=== PATIENT | female | born 1990 | race Caucasian/White ===

== ENCOUNTER 2023-04-25 11:12 | Outpatient (REF) | payer OTHER, SELFPAY ==
[2023-04-25 12:02] LABS: SARS-CoV-2 Ag POSITIVE (NEGATIVE)
== END 2023-04-25 11:13 | disposition home or self-care (01) ==
LOC: LAB 11:12
PROVIDERS: PCP Family Medicine; Visit Provider Family Medicine
DX: J06.9 Acute upper respiratory infection, unspecified (principal)
CPT/HCPCS: 87811

== ENCOUNTER 2024-06-03 15:11 | Outpatient (RCR) | payer OTHER, SELFPAY | END 2024-06-04 10:26 | disposition home or self-care (01) | LOC: PT 15:11 | PROVIDERS: PCP Family Medicine; Visit Provider Nurse Practitioner Family | DX: M54.50 Low back pain, unspecified (principal); G89.29 Other chronic pain; R20.2 Paresthesia of skin; M62.81 Muscle weakness (generalized) | CPT/HCPCS: 97110; 97162 ==

== ENCOUNTER 2024-07-08 14:29 | Outpatient (RCR) | payer OTHER, SELFPAY | END 2024-09-18 07:00 | disposition home or self-care (01) | LOC: PT 14:29 | PROVIDERS: PCP Family Medicine; Visit Provider Nurse Practitioner Family | DX: M62.81 Muscle weakness (generalized) (principal); R20.2 Paresthesia of skin; M54.50 Low back pain, unspecified; G80.8 Other cerebral palsy | CPT/HCPCS: 97110; 97112; 97140; 97161 ==

== ENCOUNTER 2025-01-27 14:41 | Outpatient (OUT) | payer OTHER, SELFPAY ==
--- OUTSIDE RECORDS SUMMARY | 2025-01-27 14:47 | XMS_ITS | CCD ---
Author Organization [facility] Care Team Providers Care Metal Filer Name Role Phone DO Janneth Ramirez Primary Care Provider MD Sonido Eaton Attending Provider DO Janneth Ramirez Primary Care Provider [phone] MD Sonido Eaton Attending Provider WILL Gregory Emergency Provider DO Janneth Ramirez Primary Care Provider [phone] DO Carolyn Dale Attending Provider DO Janneth Ramirez Primary Care Provider MD Billy Eaton Attending Provider ROMAN Miles Emergency Provider [phone] DO Janneth Ramirez Primary Care Provider [phone] MD Billy Eaton Attending Provider MD Louie Nevarez Emergency Provider Janneth Ramirez DO Primary Care Provider [phone] Zhao Juárez DO Attending Provider Billy Eaton MD Attending Provider Billy Eaton MD Attending Provider Janneth Ramirez DO Primary Care Provider Billy Eaton MD Attending Provider [phone] Ginger PIPE BLANKS CUT OFF SAW OPERATORRichie Emergency Provider Livia RAMIREZ Primary Care Physician Janneth Ramirez DO Primary Care Provider Billy Eaton MD Attending Provider Cricket PIPE BLANKS CUT OFF SAW OPERATOR-MACHINE WEDGER-C, Elise Burnham Attending Provider Ginger PIPE BLANKS CUT OFF SAW OPERATOR, Richie Emergency Provider Earlene Verduzco Attending Provider Unavailable Janneth Ramirez DO Primary Care Provider Cricket PIPE BLANKS CUT OFF SAW OPERATOR-MACHINE WEDGER-C, Elise Burnham Attending Provider Billy Eaton MD Attending Provider Theo Cerna MD Attending Provider Billy Eaton Admitting Unavailab Billy Luis Attending Unavailab Janneth Daniel Primary Care Unavailable Itzkowijenny, Zhao Admitting Unavailable Itromán, Zhao Attending Unavailable Janneth Ramirez Primary Care Unavailable Itzkokarleetz, Zhao Admitting Unavailable ItZaire carltondric Attending Unavailable Janneth Ramirez Primary Care Unavailable Talha Milesothy Admitting Unavailable Talha Milesothy Attending Unavailable Janneth Ramirez Primary Care Unavailable Louie Nevarez Admitting Unavailable Louie Nevarez Attending Unavailable Janneth Ramirez Primary Care Unavailable Elise Delatorre E Admitting Unavailable Elise Delatorre E Attending Unavailable Janneth Ramirez Primary Care Unavailable Itzkokarleetz, Zhao Admitting Unavailable Itromán, Zhao Attending Unavailable Janneth Ramirez Primary Care Unavailable ALBERTO RAMIREZ Primary Care Physician Jacklyn Rivera Attending Unavailable Jacklyn Rivera Attending Unavailable PAU VO Attending Unavailable CRICKET, ELISE D Referring Unavailable PAU VO Attending Unavailable Jacklyn Rivera Attending Unavailable CRICKET ELISE Referring Unavailable PAU VO Attending Unavailable ELISE DELATORRE Attending Unavailable ITZKOWITZ, ZHAO H Attending Unavailable CAROLYN DALE Attending Unavailable ELISE DELATORRE Attending Unavailable ALBERTO RAMIREZ Attending Unavailable JAREN SHAFFER Attending Unavailable ALBERTO RAMIREZ Attending Unavailable ZHAO JUÁREZ Attending Unavailable ALBERTO RAMIREZ Referring Unavailable OTF CARTWRIGHT Attending Unavailable SIENNA DERAS Attending Unavailable JESSENIA PAULA Attending Unavailable ALBERTO RAMIREZ Attending Unavailable MARGARET LEACH Attending Unavailable Allergies Allergy ClassificationReported Allergen(s)Allergy TypeDate of OnsetReaction(s) Facility (15 sources)Sulfamethoxazole; Translations: [sulfamethoxazole]Drug Allergy 47-00-6487SofxhDjbwyivgoWV[facility] (15 sources)Trimethoprim; Translations: [trimethoprim]Drug Qscoudq19-62-5490 [facility] (12 sources)Latex; Translations: [latex]Allergy to guvggvsjt99-92-9822Fovnjus (qualifier value)[facility] (12 sources)Morphine; Translations: [Morphine]Drug Jpifnkv97-05-6210Mjqjhii (qualifier value)[facility] (4 sources)Sulfonamide; Translations: [sulfa drugs]Drug allergyUnknown (qualifier value)[facility] Medications Current Medications MedicationDrug Class(es)DatesSig (Normalized)Sig (Original)[id number] 200 actuat albuterol 0.09 mg/actuat metered dose inhaler (7 sources)beta2-Adrenergic AgonistStart: 53-93-1247woew 1 puff(s) by inhalation every four to six hours as needed for wheezingAlbuterol Sulfate 90 mcg/actuation HFA aerosol inhaler Active 2 PUFF INHALATION EVERY 4-6 HOURS as needed for shortness of breath or wheezing March 19, 2024 1:00am Complies with drug therapyAlbuterol (Eqv-Ventolin HFA) 90 mcg/inh inhalation aerosol (3 sources)Start: 48-22-5180Vecnpqomr (Eqv-Ventolin HFA) 90 mcg/inh inhalation aerosol 2 inh, Refill(s) 0 Start Date: 06/25/24 Status: Ordered Repeat number: 1 baclofen 5 mg oral tablet (10 sources)gamma-Aminobutyric Acid-ergic AgonistStart: 05-82-1873lnylbdaq 5 mg oral tablet 5 mg = 1 tab(s), Refills(s) 0 Start Date: 06/25/24 Status: Ordered Repeat number: 124 hr buPROPion hydrochloride 300 mg extended release oral tablet (9 sources)AminoketoneStart: 21-34-0200dzjw 1 tablet by mouth once daily in the morningBupropion Hcl 300 mg tablet extended release 24 hr Active 300 MG PO Every morning August 31, 2023 12:00am Complies with drug therapyStart: 08-31-2023 Bupropion Hcl Active MG PO August 31, 2023 12:00amBuPROPion (Eqv-Wellbutrin SR) 150 mg/12 hours oral tablet, extended release (3 sources)Start: 68-08-6687DmRTJJhiz (Eqv-Wellbutrin SR) 150 mg/12 hours oral tablet, extended release 150 mg = 1 tab(s), Refills(s) 0 Start Date: 06/25/24 Status: Ordered Repeat number: 1cholecalciferol 0.05 mg oral capsule (9 sources)Vitamin DStart: 25-29-4056qkdw 1 capsule by mouth once daily Cholecalciferol (Vitamin D3) (Vitamin D3) 50 mcg (2,000 unit) capsule Active 50 MCG PO Daily August 31, 2023 12:00am Complies with drug therapy{24 (Ethinyl Estradiol 0.01 MG / norethindrone acetate 1 MG Oral Tablet) / 2 (Ethinyl Estradiol 0.01 MG Oral Tablet) / 2 (Ferrous fumarate 75 MG Oral Tablet) } Pack [Lo Loestrin Fe 28 Day] (15 sources)EstrogenStart: 32-41-6966zetq 1 tablet by mouth once daily, then take 1 tablet by mouth once dailyLo Loestrin Fe oral tablet 1 tab(s), Oral, Daily, TAKE 1 TABLET BY MOUTH DAILY CONTINUOUSLY Start Date: 01/14/25 Status: Ordered Repeat number: 1Start: 23-13-8444ysvi 1 tablet by mouth once daily Norethindrone-E.Estradiol-Iron (Lo Loestrin Fe) 1 mg-10 mcg (24)/10 mcg (2) tablet Active 1 TAB PO Daily April 24, 2021 5:34pmStart: 30-57-1793ehyq 1 tablet by mouth once daily at bedtimeStart: 29-90-9221kfas 1 tablet by mouth once daily at bedtimeNorethindrone-E.Estradiol-Iron (Lo Loestrin Fe) 1 mg-10 mcg (24)/10 mcg (2) tablet Active 1 TAB PO Daily at bedtime April 24, 2021 1:00am Complies with drug therapyStart: 73-97-6513kxnt 1 tablet by mouth once daily at bedtimeNorethindrone-E.Estradiol-Iron (Lo Loestrin Fe) 1 mg-10 mcg (24)/10 mcg (2) tablet Active 1 TAB PO Daily at bedtime April 24, 2021 1:00amStart: 77-76-6055yflf 1 tablet by mouth once daily at bedtime Norethindrone-E.Estradiol-Iron (Lo Loestrin Fe) 1 mg-10 mcg (24)/10 mcg (2) tablet Active 1 TAB PO Daily at bedtime April 24, 2021 12:00amStart: 16-77-2131hyrl 1 tablet by mouth once dailyNorethindrone-E.Estradiol-Iron (Lo Loestrin Fe) 1 mg-10 mcg (24)/10 mcg (2) tablet Active 1 TAB PO Daily April 24, 2021 1:00amfamotidine 40 mg oral tablet (12 sources)Histamine-2 Receptor AntagonistStart: 99-09-0844kvexsaromo 40 mg Tab 40 mg = 1 tab(s), Refills(s) 0 Start Date: 06/25/24 Status: Ordered Repeat numbe r: 1Start: 80-56-1664Myfqembzzc Active MG TABLET August 31, 2023 12:00am hydrOXYzine pamoate 25 mg oral capsule (17 sources)AntihistamineStart: 15-26-8683idmpQNWpgih pamoate 25 mg Cap 25 mg = 1 cap(s), Refills(s) 0 Start Date: 06/25/24 Status: Ordered Repeat number: 1 Start: 11-54-2083qmls 1 capsule by mouth every six hours as needed for anxiety Hydroxyzine Pamoate 50 mg Capsule Active 50 MG PO Q6H as needed for Anxiety 30 15 April 282 1:00am Complies with drug therapyibuprofen 600 mg oral tablet (10 sources)Nonsteroidal Anti-inflammatory DrugStart: 32-24-6325kcvh 1 tablet by mouth four times daily as neededIbuprofen 600 mg tablet Active 600 MG PO Four times daily as needed January 13, 2025 12:00am Complies with drug therapyStart: 08-31-2023 End: 81-48-3808jlxd 1 tablet by mouth three times daily as needed for pain Ibuprofen 800 mg tablet Discontinued 800 MG PO Three times daily as needed for fever or pain 2023 12:00am August 16, 2024 4:26pmlamoTRIgine 150 mg oral tablet (20 sources)Mood Stabilizer, Anti-epileptic AgentStart: 29-81-0752arfyniljfoj 150 mg Tab 150 mg = 1 tab(s), Refills(s) 0 Start Date: 06/25/24 Status: Ordered Repeat number: 1Start: 85-42-9112zorr 1 tablet by mouth once daily at bedtime Lamotrigine 200 mg tablet Active 200 MG PO Daily at bedtime March 19, 2024 1:00am Complies with drug therapyStart: 08-31-2023 End: 15-96-3954ztsk 1 tablet by mouth once dailyLamotrigine 100 mg tablet Discontinued 100 MG PO Daily August 31, 2023 12:00am March 19, 2024 12:54pm Start: 76-05-7674Wnwpcuvjxsa Active MG TABLET August 31, 2023 12:00amStart: 04-28-2021 End: 32-07-9558nzad 1 tablet by mouth once dailyLamotrigine 25 mg Tablet Discontinued 25 MG PO Daily April 28, 2021 1:00am August 31, 2023 12:25pmmelatonin 10 mg oral capsule (3 sources)Start: 83-82-4166jyae 1 capsule by mouth once daily at bedtime melatonin 10 mg oral capsule 10 mg = 1 cap(s), Oral, Once a day (at bedtime), Refills(s) 0 Start Date: 06/25/24 Status: Ordered Repeat number: 124 hr oxybutynin chloride 10 mg extended release oral tablet (7 sources)Cholinergic Muscarinic AntagonistStart: 01-14-2025 End: 84-18-1482swmx 1 tablet by mouth once dailyoxybutynin 10 mg ER Tab 10 mg = 1 tab(s), Oral, Daily, X 30 day(s), # 30 tab(s), Refills(s) 6, Pharmacy: [facility]/pharmacy #[id number], 165, cm, 01/14/25 10:35:00 EDT, Height/Length Dosing, 99.4, kg, 01/14/25 10:35:00 EDT, Weight Dosing Start Date: 01/14/25 Stop Date: 08/12/25 Status: Ordered Quantity: 30.0 Unit: tab(s) Repeat number: 7 Indications: Mixed incontinence;Start: 08-16-2024 End: 85-96-1389vjik 1 tablet by mouth once dailyOxybutynin Chloride 15 mg tablet extended release 24hr Active 15 MG PO Daily August 16, 2024 12:00amComplies with drug therapyprazosin 2 mg oral capsule (20 sources)alpha-Adrenergic BlockerStart: 70-00-9848jbdiclct 2 mg oral capsule 2 mg = 1 cap(s), Refills(s) 0 Start Date: 06/25/24 Status: Ordered Repeatnumber: 1Start: 04-24-2021 End: 68-45-8033ijyl 1 capsule by mouth once dailyPrazosin (Minipress) 1 mg capsule Discontinued 1 MG PO Daily 15 April 28, 2021 9:43am March 19, 2024 12:59pmtraZODone hydrochloride 150 mg oral tablet (20 sources)Serotonin Reuptake InhibitorStart: 62-94-1869lblKNDAYM 150 mg Tab 150 mg = 1 tab(s), Refills(s) 0 Start Date: 06/25/24 Status: Ordered Repeat numb er: 1Start: 15-69-1438svda 3 tablets by mouth once daily at bedtime as needed Trazodone 50 mg tablet Active 150 MG PO Daily at bedtime as needed for Insomnia February 05, 2022 7:37pm Complies with drug therapyStart: 48-31-9154obdy 150 mg by mouth once daily at bedtimeTrazodone Active 150 MG PO Daily at bedtime February 05, 2022 7:37pmStart: 77-02-2314ciai 100 mg by mouth once daily at bedtimeTrazodone Active 100 MG PO Daily at bedtime February 05, 2022 7:37pm Start: 04-28-2021 End: 67-15-0637fsfq 1 tablet by mouth once daily at bedtime as neededTrazodone 50 mg Tablet Discontinued 50 MG PO Daily at bedtime as needed for Insomnia April 28, 2021 1:00am February 05, 2022 7:37pmVital-D (3 sources)Start: 60-69-1795Dqucb-D Oral, Daily, Refill(s) 0 Start Date: 06/25/24 Status: Ordered Repeat number: 1ziprasidone 60 mg oral capsule (20 sources)Atypical AntipsychoticStart: 08-53-0906ufcufcfwqxh 60 mg oral capsule 60 mg = 1 cap(s), Refills(s) 0 Start Date: 06/25/24 Status: Ordered Re peat number: 1Start: 24-02-5267vjdlequeiqu 20 mg Cap 20 mg = 1 cap(s), Refills(s) 0 Start Date: 06/25/24 Status: Ordered Repeat number: 1Start: 90-70-3497skiw 20 mg by mouth twice dailyZiprasidone Hcl Active 20 MG PO Twice daily August 31, 2023 12:00amStart: 78-97-6312Aqpzqdrvjyc Hcl Active MG PO August 31, 2023 12:00amStart: 95-42-0141Miedzzryquc Hcl Active MG PO August 31, 2023 12:00am Completed/Discontinued Medications MedicationDrug Class(es)DatesSig (Normalized)Sig (Original)acetaminophen 325 mg / oxyCODONE hydrochloride 5 mg oral tablet (7 sources)Opioid AgonistStart: 04-28-2024 End: 39-17-0728tvwy 1 tablet by mouth every six hours as needed for pain Oxycodone-Acetaminophen (Percocet) 5-325 mg tablet Discontinued 1 TAB PO Q6H as needed for pain 03 10April 28, 2024 August 16, 2024 4:26pmamitriptyline hydrochloride 50 mg oral tablet (14 sources)Tricyclic AntidepressantStart: 07-31-2020 End: 75-14-5966Cduhwblesghjb 50 mg tablet Discontinued July 31, 2020 12:00am April 24, 2021 5:35pmStart: 07-31-2020 End: 44-71-0309Esvofokxwzmim 50 mg tablet Discontinued TABLET July 31, 2020 12:00am April 24, 2021 5:35pmStart: 07-31-2020 End: 30-97-3002Yagfsllrnxgrd Discontinued TABLET July 31, 2020 12:00am April 24, 2021 5:35pmcephalexin 500 mg oral capsule (10 sources)Cephalosporin AntibacterialStart: 08-26-2022 End: 70-24-7849ivfb 1 capsule by mouth every eight hoursCephalexin 500 mg capsule Discontinued 500 MG PO Q8H 30 August 26, 2022 12:00am August 31, 2023 12:24pmdocusate sodium 100 mg oral capsule (14 sources)Start: 04-28-2021 End: 18-48-4941kogh 1 capsule by mouth twice daily as needed for constipation Docusate Sodium (Dok) 100 mg Capsule Discontinued 100 MG PO Twice daily as needed for Constipation 14 April 28, 2021 1:00am February 05, 2022 7:36pm ergocalciferol 1.25 mg oral capsule (14 sources)Provitamin D2 CompoundStart: 04-28-2021 End: 12-07-5420uqgk 1 capsule by mouth every weekErgocalciferol (Vitamin D2) 1,250 mcg (50,000 unit) Capsule Discontinued 1250 MCG PO Q7D 3 April 28, 2021 1:00am August 31, 2023 12:24pmmeloxicam 15 mg oral tablet (9 sources)Nonsteroidal Anti-inflammatory DrugStart: 10-27-2024 End: 26-96-5581qorl 1 tablet by mouth once dailyMeloxicam 15 mg tablet Discontinued 15 MG PO Daily October 27, 2024 1:23pm January 13, 2025 1:30pm Start: 31-35-3663uhifmqpgx 7.5 mg Tab 7.5 mg = 1 tab(s), Refills(s) 0 Start Date: 06/25/24 Status: Ordered Repeat number: 1OLANZapine 5 mg oral tablet (20 sources)Atypical AntipsychoticStart: 04-24-2021 End: 03-47-7758cgzj 1 tablet by mouth once dailyOlanzapine 5 mg tablet Discontinued 5 MG PO Daily April 28, 2021 9:43am August 31, 2023 12: 25pmpenicillin v potassium 500 mg oral tablet (9 sources)Start: 08-31-2023 End: 42-14-4217Bqtwutrczi V Potassium 500 mg tablet Discontinued 1000 MG PO Twice daily August 31, 2023 12:00am January 19, 2024 4:32pmStart: 08-31-2023 End: 40-91-7093imef 1000 mg by mouth twice dailyPenicillin V Potassium Discontinued 1000 MG PO Twice daily August 31, 2023 12:00am January 19, 2024 4:32pmsertraline 50 mg oral tablet (20 sources)Serotonin Reuptake InhibitorStart: 07-31-2020 End: 03-92-2596bmsf 1 tablet by mouth once dailySertraline 50 mg tablet Discontinued 50 MG PO Daily April 28, 2021 9:43am February 05, 2022 7:37pm24 hr divalproex sodium 250 mg extended release oral tablet (14 sources)Mood Stabilizer, Anti-epileptic AgentStart: 04-24-2021 End: 63-77-8345aykc 1 tablet by mouth once dailyDivalproex 250 mg tablet extended release 24 hr Discontinued 250 MG PO Daily April 24, 2021 1:00am August 31, 2023 12:24pm Problems Active Problems Problem ClassificationProblemDateDocumented DateEpisodic/ChronicAbdominal pain (9 sources)Abdominal pain; Translations: [Unspecified abdominal pain]Onset: 888065-06-4433WxnknjlfGgikbbr disorders (20 sources)Mixed anxiety and depressive disorder; Translations: [Anxiety disorder, unspecified]64-92-0026XtxdigeKffkgw (3 sources)Mxngem54-93-3001UflnfegDmivcaj tract disease (8 sources)Biliary calculus; Translations: [Calculus of gallbladder with chronic cholecystitis without obstruction]Onset: 142328-59-9263ZelvjwczSveeqcbrd of teeth and jaw (9 sources)Toothache; Translations: [Other specified disorders of teeth and supporting structures]74-73-6947BtichzeqDkgxtaxdppbfz symptoms and ill-defined conditions (10 sources)Mixed incontinence; Translations: [Incontinence]Onset: 09-03-2024 ChronicImmunizations and screening for infectious disease (14 sources)Contact with or exposure to other viral diseases; Translations: [Lab test negative for COVID-19 virus]92-56-9624XheffkpkBehe disorders (6 sources)Bipolar disorder; Translations: [Depressive disorder]06-25-2024 ChronicOther connective tissue disease (5 sources)Muscle weakness; Translations: [Muscle weakness (generalized)] 06-76-8300FclagqbrZtqyq connective tissue disease (1 source)Muscle weakness (generalized); Translations: [Muscle weakness (generalized)]Onset: 85-91-7504VfheobwrQvidw female genital disorders (10 sources)Abnormal uterine bleeding; Translations: [Other specified abnormal uterine and vaginal bleeding]16-30-7947QcyjwzmEawpr nervous system disorders (1 source)Other chronic pain; Translations: [Other chronic pain]Onset: 52-58-2067SvryurtKhpvn nervous system disorders (5 sources)Paresthesia; Translations: [Paresthesia of skin]10-20-6650Nhluuqri Other nervous system disorders (5 sources)Abnormal reflex; Translations: [Abnormal reflex]73-11-0564Ibphgqen Other nervous system disorders (1 source)Paresthesia of skin; Translations: [Paresthesia of skin]Onset: 03-56-6729OqlhlawhBcyni nervous system disorders (1 source)Abnormal reflex; Translations: [Abnormal reflex]Onset: 10-28-2024 EpisodicOther upper respiratory infections (14 sources)Upper respiratory infection; Translations: [Acute upper respiratory infection, unspecified]72-09-4449PxljthpkDxoodwfdl (8 sources)Cerebral palsy; 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]06-25-2024 ChronicResidual codes; unclassified (5 sources)History of neurodevelopmental disorder; Translations: [Personal history of other specified conditions]93-46-7287VjfmfjafVwicsevijoj; intervertebral disc disorders; other back problems (4 sources)Lumbar spondylosis; Translations: [Spondylosis without myelopathy or radiculopathy, lumbar region]02-38-1856SchroehDqbkafdwmjs; intervertebral disc disorders; other back problems (15 sources)Lumbosacral radiculopathy; Translations: [Radiculopathy, lumbosacral region]Onset: 463961-23-8661RixetdqvTghcity and strains (16 sources)Sprain of foot; Translations: [Unspecified sprain of unspecified foot, initial encounter]81-03-6257RsmgaqglYuivnci and intentional self-inflicted injury (14 sources)Suicidal thoughts; Translations: [Suicidal ideations]04-24-2021 EpisodicUnclassified (1 source)M54.50 - Low back pain, unspecified,G89.29 - Other chronic pain,R20.2 - Paresthesia of skin,M54.17 - Radiculopathy, lumbosacral regionUnclassified (1 source)Low back pain, unspecified; Translations: [Low back pain, unspecified] Onset: 50-42-4466Kbdsxuy tract infections (10 sources)Urinary tract infectious disease; Translations: [Urinary tract infection, site not specified]05-16-1377Wvtaieqt Past or Other Problems Problem ClassificationProblemDateDocumented DateEpisodic/ChronicOther injuries and conditions due to external causes (1 source)Unspecified injury of right wrist, hand and finger(s), initial encounter; Translations: [Unspecified injury of right wrist, hand and finger(s), initial encounter]Onset: 44-22-2250Rmjyxtum Results Test NameValueInterpretationReference RangeFacilityUrology Office/Clinic Noteon 31-16-4562Krjfglg Office/Clinic NoteUrology Office/Clinic Note HPI Staff 34 year old female patient (last saw SHARIFA 06/25/24) here for incontinence. Previous dx: mixed incontinence urge and stress. BBSQ: 22 At the last OV started on oxybutynin 10 mg then onto 15 mg and she said that she did well on it, she is out of the medication and since she ran out her symptoms came back. Denies abdominal/flank pain, denies visible blood. Has some burning while urinating. History of Present Illness Tests reviewed: reviewed UA I have reviewed the previous health record information and history for this patient from Pau Vo PA-C. I have reviewed and verified the staff HPI to be accurate for this encounter. Review of Systems PHQ Score Initial Depression Screen Score: 2 SCORE ROS - Provider Constitutional: denies weight loss, denies hot flashes. Eyes: denies eye problems. Gastrointestinal: denies nausea, denies vomiting. Cardiovascular: denies chest pain or angina. Integumentary: no dryness Musculoskeletal: denies musculoskeletal symptoms. ENMT: denies otolaryngeal symptoms. Respiratory: no shortness of breath. Heme/Lymph: denies easy bleeding tendency, denies easy bruising tendency. Psychiatric: no confusion, no anxiety. Genitourinary: See HPI. Physical Exam Vitals & Measurements T: 36.5 ???C(Temporal Artery) HR: 75(Peripheral) RR: 16 BP: 121/76 HT: 65 in HT: 165 cm WT: 99.4 kg WT: 219.139 lb BMI: 36.51 General Appearance: alert , no acute distress, well nourished, well developed female. Assessment/Plan Last seen by SHARIFA 06/28/24 CT 01/19/24 nl kidneys/ureters/bladder. 1. Mixed incontinence urge and stress (N39.46: Mixed incontinence) Contributing factors: DM - No Frequent UTIs - No Medications (Psych, Diuretics, etc) - Yes, pt is taking _Lamictal, Trazodone, and Geodon which all have LUTS as s/e Dietary - Denies significant intake of bladder irritants Bowel issues - No Mobility limitations - Yes _Cerebral Palsy BBSQ 22 (22 Poor control) PVR 0 - emptying well UA today shows small leuks. She is asx and denies gross hematuria. UUI > SHRUTI. no FI. Started Oxybutynin at prior OV, titrated from 5mg to 15mg qd until October. Her prescription refills ran out in October and she feels her symptoms have returned since then. Shares Oxybutynin significantly improved her urgency & UUI more than 50%. Today, feels UUI > SHRUTI but noted these both decreased on Oxybutynin. Did not feel much of a difference between 10-15 mg, therefore, will restart Oxybutynin at 10 mg ER qd. She denies any previous bothersome SE to med. Shares she is not drinking much water, mostly 2-3 cans of soda and coffee. Pt reports slight burning while urinating but also having vaginal irritation and attributes her sx to a possible yest infection. Reviewed UA w/ pt. She does not feel her urine needs to be sent for culture today. Encouraged her to gradually increase her water intake by 1 bottle per month while limiting her pop intake. Notify our office for future UTI sx. She is agreeable. All questions answered. Shares she occasionally feels she does not completely empty. Explained PVR of 0 mL today shows she is emptying well. She tries to urinate q2-3hrs but has a hard time getting to that bathroom sometimes due to work. -Restart Oxybutynin 10 mg qd. Script sent to [facility]. -Increased water intake, limit bladder irritants -Timed and double voids -Follow in 3 mos w/ PVR, or sooner if needed Follow-up With When Contact Information Nicole SOLIS, YANIV Villasenor Additional Instructions: 3 mos w/ PVR Patient Education Overactive Bladder, Adult I, Benita Calle, personally scribed for Jacklyn Rivera PA-C on 01/14/2025 10:53:43. Electronicallysigned by mich Calle on 01/14/2025 10:53:43. Portions of this record may have been created with voice recognition artificial intelligence software, specifically [employer] and or [employer]. Substitutions may have occurred due to the inherent limitations of voice recognition and artificial intelligence software. Problem List/Past Medical History Ongoing Anxiety Asthma Bipolar disorder Cerebral palsy Depression Mixed incontinence urge and stress PTSD (post-traumatic stress disorder) Historical No qualifying data Procedure/Surgical History Appendectomy, Cholecystectomy, Procedure on lower leg. Medications Albuterol (Eqv-Ventolin HFA) 90 mcg/inh inhalation aerosol, 2 inh baclofen 5 mg oral tablet, 5 mg= 1 tab(s) BuPROPion (Eqv-Wellbutrin SR) 150 mg/12 hours oral tablet, extended release, 150 mg= 1 tab(s) famotidine 40 mg Tab, 40 mg= 1 tab(s) hydrOXYzine pamoate 25 mg Cap, 25 mg= 1 cap(s) lamotrigine 150 mg Tab, 150 mg= 1 tab(s) Lo Loestrin Fe oral tablet, 1 tab(s), Oral, Daily melatonin 10 mg oral capsule, 10 mg= 1 cap(s), Oral, Once a day (at bedtime) meloxicam 7.5 mg Tab, 7.5 mg= 1 tab(s) oxybutynin 10 mg ER Tab, 10 mg= 1 tab(s), Oral, Daily, 6 refills prazosin (more content not included)...[facility] CenterComment on above:Result Comment: Electronically Signed By: Nicole SOLIS, Jacklyn\.isreal\Date and Time Signed: 01/14/25 11:02 EDTMR head/brain wo/w conon [id number] head/brain wo/w [facility] [place] [address] MRI Report Signed Patient: Yue Dawn MR#: [id number] : 1990 Acct:[id number] Age/Sex: 34 / F ADM Date: 10/28/24 Loc: MR Room: Type: [facility] Attending Dr: Elise VASQUEZ Copies to: PEDRO Sanchez Ordering Provider: PEDRO Sanchez Date of Service: 10/28/24 MR/MR head/brain wo/w con: Asymmetric reflexes. Include contrast if creat ok MRI BRAIN WITHOUT AND WITH INTRAVENOUS CONTRAST CLINICAL DATA: Asymmetric reflexes COMPARISON: None FINDINGS: No restricted diffusion. Mild white matter volume loss with colpocephaly involving the trigone/atrium of both lateral ventricles. Mild thinning posterior body corpus callosum. Mild nonspecific white matter changes within the periventricular white matter. Otherwise no shift midline structure. Basal cisterns are patent. Slight involutional changes along the superior the cerebellum prominence with Dean. Otherwise posterior fossa appears unremarkable. Major intracranial arterial vascular flow was preserved. No abnormal postcontrast enhancement. Mild paranasal sinus mucosal thickening. MR/MR head/brain wo/w con IMPRESSION: Negative acute intracranial process by MRI. 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 Mild nonspecific white matter changes of the congenital rather than developing nonspecific white matter changes Impression dictated by: Alexis Howe M.D. 10/29/2024 9:37 AM Dictation Location[facility] Transcribed By: [facility] 10/29/24 0937 Dictated By: Alexis Howe MD 10/29/24 0927 Signed By: 10/29/24 0937[facility] Physician GroupMR lumbar spine wo conon [id number] lumbar spine wo [facility] [place] [address] [place] [address] MRI Report Signed Patient: Yue Dawn MR#: [id number] : 1990 Acct:[id number] Age/Sex: 34 / F ADM Date: 10/28/24 Loc: MR Room: Type: [facility] Attending Dr: Elise VASQUEZ Copies to: PEDRO Sanchez Ordering Provider: PEDRO Sanchez Date of Service: 10/28/24 MR/MR lumbar spine wo con: Asymmetric reflexes MRI of the lumbar spine performed without contrast INDICATION: Chronic bilateral low back pain with sciatica, lumbosacral radiculopathy COMPARISON: CT 01/19/2024 FINDINGS: Lumbar vertebral heights, alignment and bone marrow signal is unremarkable. Minimal intervertebral space narrowing L4-5. Mild multilevel facet arthropathy. Conus medullaris terminates normally mid L1. Nerve roots of cauda equina unremarkable. Mild degenerative changes of the lower thoracic spine on the visualized on sagittal images. T12-L3: No significant disease, disc protrusion, central canal or neural foraminal narrowing identified. Minimal facet arthropathy. L3-4: Mild to moderate facet arthropathy. No significant disease, central canal or neural from narrowing identified. L4-5: There is minimal loss of disc space height and signal with a left foraminal to extra foraminal zone protrusion with associated T2 hyperintense annular fissure. Right foramen and canal patent. L5-S1: Moderate facet arthropathy. Right-sided pars interarticularis defect with minimal adjacent edema.. There is a chronic cortical defect involving the left lamina appearing chronic. Otherwise no significant disc disease, central canal or neural from narrowing identified. MR/MR lumbar spine wo con IMPRESSION: 1. Mild multilevel facet arthropathy greatest lower spine. 2. Left foraminal to extra foraminal zone protrusion with associated T2 hyperintense signal causing moderate left foraminal narrowing. 3. Right-sided pars intra-articular is defect, chronic with associated edema. There is a subtle chronic appearing cortical defect involving left lamina at L5 is well Impression dictated by: Alexis Howe M.D. 10/29/2024 8:55 AM Dictation Location: [facility]-PC-26 Transcribed By: MARILEE 10/29/24854 Dictated By: Alexis Howe MD 10/29/24 0846 Signed By: 10/29/24 0855[facility] Physician GroupX-ray reportOrdered By: Gallito Bridges on [id number] reportDAY[facility] [place] [address] [place] [address] XRay Report Signed Patient: Yue Dawn MR#: [id number] : 1990 Acct:[id number] Age/Sex: 33 / F ADM Date: 5 Loc: ER Room: Type: [facility] ER Attending Dr: Copies to: Richie Miles APRN~ Ordering Provider: Richie Miles APRN Date of Service: 08/16/24 XR/XR hand RT min 3V*: Extremity Injury, Upper XR hand RT min 3V* 08/16/2024 4:30 PM SIGNS AND SYMPTOMS: Pain and swelling of the third metacarpophalangeal joint of the right hand PROTOCOL: Frontal, lateral, and oblique radiographs of the right hand COMPARISON: None FINDINGS: The bones are in anatomic alignment. The joint spaces are preserved. There is no fracture or dislocation. No significant soft tissue swelling. XR/XR hand RT min 3V* IMPRESSION: No acute bony injury or significant soft tissue swelling. Impression dictated by: Gallito Bridges M.D. 08/16/2024 5:05 PM Dictation Location: RADIO--17 Transcribed By: MARILEE 08/16/241704 Dictated By: Gallito Bridges II, MD 08/16/241704 Signed By: 08/16/241704 [facility] Work Phone: XR hand RT min 3V*on [id number] hand RT min 3V* [facility] [address] [place] [address] [place] [address] XRay Report Signed Patient: Yue Dawn MR#: [id number] : 1990 Acct:[id number] Age/Sex: 33 / F ADM Date: 08/16/24 Loc: ER Room: Type: [facility] ER Attending Dr: Copies to: Richie Miles APRN Ordering Provider: Richie Miles APRN Date of Service: 08/16/24 XR/XR hand RT min 3V*: Extremity Injury, Upper XR hand RT min 3V* 08/16/2024 4:30 PM SIGNS AND SYMPTOMS: Pain and swelling of the third metacarpophalangeal joint of the right hand PROTOCOL: Frontal, lateral, and oblique radiographs of the right hand COMPARISON: None FINDINGS: The bones are in anatomic alignment. The joint spaces are preserved. There is no fracture or dislocation. No significant soft tissue swelling. XR/XR hand RT min 3V* IMPRESSION: No acute bony injury or significant soft tissue swelling. Impression dictated by: Gallito Bridges M.D. 08/16/2024 5:05 PM Dictation Location: [place] [address] Transcribed By: [facility] 08/16/241704 Dictated By: Gallito Bridges II, MD 08/16/241704 Signed By: 08/16/[address] [place] [address] Physician GroupUrology Office/Clinic Noteon [id number] Office/Clinic NoteUrology Office/Clinic Note Chief Complaint urinary frequency, urgency and incontnence HPI Staff 33yr old female pt referred by Elise Delatorre NP for incontinence. Pt has Cerebral Palsy. Complaints of urinary frequency at least 1x an hour, nocturia x3. Desperate urge to void immediately, rushes to the bathroom at the least 1x daily, wets herself at the least 1x daily, often more. Feels she has poor bladder control. She is not wearing pads, mostly due to them being cost-prohibitive. Just changes clothing when wet. Does admit to stress incontinence as well. Denies any blood in urine, denies dysuria and pain of any kind. States that her incontinence issue has been ongoing for years, since teens, but in the past 5 yearsit seems to be getting worse. Review of Systems PHQ Score Initial Depression Screen Score: 2 SCORE no fever, chills, malaise, myalgia. Physical Exam Vitals & Measurements T: 37 ???C(Temporal Artery) HR: 76(Peripheral) RR: 16 BP: 127/78 HT: 65 in HT: 165 cm WT: 101.5 kg WT: 223.769 lb BMI: 37.28 General: nontoxic, NAD Mouth: moist mucosa Lungs: normal respiratory effort Cardio: regular rate, good distal perfusion Abdomen: nondistended, no suprapubic distention or tenderness, no CVA tenderness Skin: No rashes or suspicious lesions Assessment/Plan CT 01/19/24 nl kidneys/ureters/bladder. UA completed in office today shows no microhematuria or signs of infection. PVR low. 1. Mixed incontinence urge and stress (N39.46: Mixed incontinence) BBSQ 22 Poor control. UUI > SHRUTI. no FI. Contributing factors: DM - No Frequent UTIs - No Medications (Psych, Diuretics, etc) - Yes, pt is taking _Lamictal, Trazodone, and Geodon which all have LUTS as s/e Dietary - Denies significant intake of bladder irritants Bowel issues - No Mobility limitations - Yes _Cerebral Palsy Discussed tx options: Medication management includes anticholinergics and beta-3 agonists. Beta-3???s (Myrbetriq/Gemtesa)are often preferable due to lower side effect profile, but most insurances won???t cover without trying anticholinergics first. Therefore we will start with Oxybutynin. Pt will start with lowest daily dose and slowly titrate up as pt tolerates. I explained the most common side effects are dry mouth, dry eyes, and constipation. We discussed OTC options to help with these side effects. Pt will stopmedication and call office if side effects become intolerable. We did discuss that there is a documented potential side effect of mental status changes/confusion in the elderly, but that this risk isquite low. Pt and I agree that potential benefit outweigh risk at this time. If fails Oxybutynin, we can try a second anticholinergic. If fails second anticholinergic, we can consider Beta 3. If fails Beta 3, we cannot get it covered, or we get it covered but it???s a cost-prohibitive co-pay then we will consider next steps which could include cysto, urodynamics, Botox, SNM. Brief discussion today regarding Botox/SNM but did not go into elaborate detail, would address fullrisks/benefits/details of procedure prior to scheduling. Follow-up With When Contact Information GILDA SOLIS, PAU Burnham, URL In 3 months [address] [place] [address] Additional Instructions: Patient Education Overactive Bladder, Adult Problem List/Past Medical History Ongoing Anxiety Asthma Bipolar disorder Cerebral palsy Depression Mixed incontinence urge and stress PTSD (post-traumatic stress disorder) Historical No qualifying data Procedure/Surgical History Appendectomy, Cholecystectomy, Procedure on lower leg. Medications Albuterol (Eqv-Ventolin HFA) 90 mcg/inh inhalation aerosol, 2 inh baclofen 5 mg oral tablet, 5 mg= 1 tab(s) BuPROPion (Eqv-Wellbutrin SR) 150 mg/12 hours oral tablet, extended release, 150 mg= 1 tab(s) famotidine 40 mg Tab, 40 mg= 1 tab(s) hydrOXYzine pamoate 25 mg Cap, 25 mg= 1 cap(s) lamotrigine 150 mg Tab, 150 mg= 1 tab(s) melatonin 10 mg oral capsule, 10 mg= 1 cap(s), Oral, Once a day (at bedtime) meloxicam 7.5 mg Tab, 7.5 mg= 1 tab(s) oxybutynin 10 mg ER Tab, 10 mg= 1 tab(s), Oral, Daily oxybutynin 15 mg ER Tab, 15 mg= 1 tab(s), Oral, Daily, 1 refills oxybutynin 5 mg ER Tab, 5 mg= 1 tab(s), Oral, Daily prazosin 2 mg oral capsule, 2 mg= 1 cap(s) traZODONE 150 mg Tab, 150 mg= 1 tab(s) Vital-D, Oral, Daily ziprasidone 20 mg Cap, 20 mg= 1 cap(s) ziprasidone 60 mg oral capsule, 60 mg= 1 cap(s) Allergies Latex (Unknown) morphine (Unknown) sulfa drugs (Unknown) Social History Tobacco Never (less than 100 in lifetime) Tobacco Use:. Never Smokeless Tobacco Use:. Household tobacco concerns: No. Yes, 06/25/2024 Family History Heart disease: Father. High cholesterol: Father. Hypertension: Father. Mental illness: Mother. Migraine: Father.[facility] CenterComment on above:Result Comment: Electronically Signed By: PAU VO PA-C\.br\Date and Time Signed: 06/28/2509:09 EDTAmbulatory Visit Summaryon 38-74-7755Wnbgdvtzpu Visit SummaryAmbulatory Visit Summary CAESARSHAWN LEEKARELY Burnham :1990 Visit Date:06/25/2024 Ambulatory Visit Instructions Your Diagnosis Mixed incontinence urge and stress Your Care Team Attending Physician - PAU VO PA-C Primary Care Physician - Livia RAMIREZ DO Referring Physician - ELISE DELATORRE This Is Your Medications List Contact prescribing physician if questions or concerns albuterol (Albuterol (Eqv-Ventolin HFA) 90 mcg/inh inhalation aerosol) baclofen (baclofen 5 mg oral tablet) buPROPion (BuPROPion (Eqv-Wellbutrin SR) 150 mg/12 hours oral tablet, extended release) famotidine (famotidine 40 mg Tab) hydrOXYzine (hydrOXYzine pamoate 25 mg Cap) lamotrigine (lamotrigine 150 mg Tab) melatonin (melatonin 10 mg oral capsule) meloxicam (meloxicam 7.5 mg Tab) multivitamin with minerals (Vital-D) prazosin (prazosin 2 mg oral capsule) trazodone (traZODONE 150 mg Tab) ziprasidone (ziprasidone 20 mg Cap) ziprasidone (ziprasidone 60 mg oral capsule) Procedures Performed Appendectomy, Cholecystectomy, Procedure on lower leg. Discharge Vitals Temperature (Temporal Artery) 37 ???C Heart Rate (Peripheral) 76 Respiratory Rate 16 Blood Pressure 127/78 Height 165 cm Height 65 in Weight 101.5 kg Weight 223.769 lb BMI 37.28 What to do next Scheduled Follow-Up Appointments 2024 8:20 AM EDT With: GILDA SOLIS, PAU Burnham Where: [facility] [address] [place] [address]- Medications What How Much When Instructions Unchanged albuterol (Albuterol (Eqv-Ventolin HFA) 90 mcg/ inh inhalation aerosol) 2 Inhalation Contact prescribing physician if questions or concerns Unchanged baclofen (baclofen 5 mg oral tablet) 1 Tablets Contact prescribing physician if questionsor concerns Unchanged buPROPion (BuPROPion (Eqv-Wellbutrin SR) 150 mg/ 12 hours oral tablet, extended release) 1 Tablets Contact prescribing physician if questions or concerns Unchanged famotidine (famotidine 40 mg Tab) 1 Tablets Contact prescribing physician if questions orconcerns Unchanged hydrOXYzine (hydrOXYzine pamoate 25 mg Cap) 1 Capsules Contact prescribing physician if questions or concerns Unchanged lamotrigine (lamotrigine 150 mg Tab) 1 Tablets Contact prescribing physician if questionsor concerns Unchanged melatonin (melatonin 10 mg oral capsule) 1 Capsules By Mouth Once a day (at bedtime) Contact prescribing physician if questions or concerns Unchanged meloxicam (meloxicam 7.5 mg Tab) 1 Tablets Contact prescribing physician if questions or concerns Unchanged multivitamin with minerals (Vital-D) By Mouth Every day Contact prescribing physician if questions or concerns Unchanged prazosin (prazosin 2 mg oral capsule) 1 Capsules Contact prescribing physician if questions or concerns Unchanged trazodone (traZODONE 150 mg Tab) 1 Tablets Contact prescribing physician if questions or concerns Unchanged ziprasidone (ziprasidone 20 mg Cap) 1 Capsules Contact prescribing physician if questionsor concerns Unchanged ziprasidone (ziprasidone 60 mg oral capsule) 1 Capsules Contact prescribing physician if questions or concerns Allergies Latex (Unknown) morphine (Unknown) sulfa drugs (Unknown) Problems Ongoing - Any problem that you are currently receiving treatment for. Anxiety Asthma Bipolar disorder Cerebral palsy Depression Mixed incontinence urge and stress PTSD (post-traumatic stress disorder) Patient Survey You may receive a survey via text or e-mail asking about your office visit. Please share your experience with us by completing your survey. We appreciate your feedback and thank you for choosing us for your care. [facility] Center[facility] Summary Ambulatory Visit Summary YUE DAWN :1990 Visit Date:06/25/2024 Ambulatory Visit Instructions Your Diagnosis Mixed incontinence urge and stress Your Care Team Attending Physician - PAU VO PA-C Primary Care Physician - Livia RAMIREZ DO Referring Physician - ELISE DELATORRE This Is Your Medications List Contact prescribing physician if questions or concerns albuterol (Albuterol (Eqv-Ventolin HFA) 90 mcg/inh inhalation aerosol) baclofen (baclofen 5 mg oral tablet) buPROPion (BuPROPion (Eqv-Wellbutrin SR) 150 mg/12 hours oral tablet, extended release) famotidine (famotidine 40 mg Tab) hydrOXYzine (hydrOXYzine pamoate 25 mg Cap) lamotrigine (lamotrigine 150 mg Tab) melatonin (melatonin 10 mg oral capsule) meloxicam (meloxicam 7.5 mg Tab) multivitamin with minerals (Vital-D) prazosin (prazosin 2 mg oral capsule) trazodone (traZODONE 150 mg Tab) ziprasidone (ziprasidone 20 mg Cap) ziprasidone (ziprasidone 60 mg oral capsule) Procedures Performed Appendectomy, Cholecystectomy, Procedure on lower leg. Discharge Vitals Temperature (Temporal Artery) 37 ???C Heart Rate (Peripheral) 76 Respiratory Rate 16 Blood Pressure 127/78 Height 165 cm Height 65 in Weight 101.5 kg Weight 223.769 lb BMI 37.28 What to do next Scheduled Follow-Up Appointments 2024 8:20 AM EDT With: PAU VO PA-C Where: [facility] [address] [address]- Medications What How Much When Instructions Unchanged albuterol (Albuterol (Eqv-Ventolin HFA) 90 mcg/ inh inhalation aerosol) 2 Inhalation Contact prescribing physician if questions or concerns Unchanged baclofen (baclofen 5 mg oral tablet) 1 Tablets Contact prescribing physician if questionsor concerns Unchanged buPROPion (BuPROPion (Eqv-Wellbutrin SR) 150 mg/ 12 hours oral tablet, extended release) 1 Tablets Contact prescribing physician if questions or concerns Unchanged famotidine (famotidine 40 mg Tab) 1 Tablets Contact prescribing physician if questions orconcerns Unchanged hydrOXYzine (hydrOXYzine pamoate 25 mg Cap) 1 Capsules Contact prescribing physician if questions or concerns Unchanged lamotrigine (lamotrigine 150 mg Tab) 1 Tablets Contact prescribing physician if questionsor concerns Unchanged melatonin (melatonin 10 mg oral capsule) 1 Capsules By Mouth Once a day (at bedtime) Contact prescribing physician if questions or concerns Unchanged meloxicam (meloxicam 7.5 mg Tab) 1 Tablets Contact prescribing physician if questions or concerns Unchanged multivitamin with minerals (Vital-D) By Mouth Every day Contact prescribing physician if questions or concerns Unchanged prazosin (prazosin 2 mg oral capsule) 1 Capsules Contact prescribing physician if questions or concerns Unchanged trazodone (traZODONE 150 mg Tab) 1 Tablets Contact prescribing physician if questions or concerns Unchanged ziprasidone (ziprasidone 20 mg Cap) 1 Capsules Contact prescribing physician if questionsor concerns Unchanged ziprasidone (ziprasidone 60 mg oral capsule) 1 Capsules Contact prescribing physician if questions or concerns Allergies Latex (Unknown) morphine (Unknown) sulfa drugs (Unknown) Problems Ongoing - Any problem that you are currently receiving treatment for. Anxiety Asthma Bipolar disorder Cerebral palsy Depression Mixed incontinence urge and stress PTSD (post-traumatic stress disorder) Patient Survey You may receive a survey via text or e-mail asking about your office visit. Please share your experience with us by completing your survey. We appreciate your feedback and thank you for choosing us for your care. [facility] Medical CenterAlkaline Phosphataseon 89-08-3186CNE [Catalytic activity/Vol]81 U/TCkmafa68-831Wfy [facility] Physician GroupComment on above:Performed By: #### ANAYELI, ALP, BILIT #### [facility] [address] [place] [address] USAAlkaline phosphatase [Enzymatic activity/volume] in Serum or PlasmaOrdered By: Zhao Juárez on 71-73-6437MZU [Catalytic activity/Vol] Alkaline phosphatase [Enzymatic activity/volume] in Serum or Zhoeal06-165 [facility] ClinicAmphetamine Screen Ql (U)Ordered By: Renny Roberts on 87-80-8624Hraafnqessav Ql (U)Amphetamines screenNegativeCleveland ClinicAmylaseon 53-21-8866Xgckumo [Catalytic activity/Vol]23 U/LLow The [facility] Health Physician GroupComment on above:Result Comment: PERFORMED BY: [facility] [address] [place] [address] PATHOLOGIST VISUAL AID EXPERT KENZIE LAN M.D.Performed By: #### ANAYELI, ALP, BILIT #### [facility] [address] [place] [address] USAAmylase [Enzymatic activity/volume] in Serum or Plasma Ordered By: Zhao Juárez on 05-85-6333Mylwgpo [Catalytic activity/Vol] Amylase [Enzymatic activity/volume] in Serum or CpvfzpOrs94-260GyocvlmkmCleveland ClinicBarbiturates [Presence] in Urine by Screen methodOrdered By: Renny Roberts on 60-96-1992Vhqblqxnokgh Screen Ql (U)Barbiturates [Presence] in Urine by Screen methodNegativeCleveland ClinicBenzodiazepines Screen Ql (U)Ordered By: Renny Roberts on 48-11-7942Bfcjjacgowixzxo Ql (U) Benzodiazepines [Presence] in Urine by Screen methodNegOhioHealth O'Bleness HospitalBenzoylecgonine [Presence] in Urine by Screen methodOrdered By: Renny Roberts on 50-70-6120Wrbklvmhsbcfpfx Screen Ql (U)Benzoylecgonine [Presence] in Urine by Screen methodNegOhioHealth O'Bleness Hospital Bilirubin,Totalon 40-98-5231Dgmbqfhda [Mass/Vol]0.5 mg/dLNormal0.3-1.0The [facility] Health Physician GroupComment on above:Performed By: #### ANAYELI, ALP, BILIT #### [facility] [address] [place] [address] USABilirubin.total [Mass/volume] in Serum or PlasmaOrdered By: Zhao Juárez on 00-55-5712Frawkgikr [Mass/Vol]Bilirubin.total [Mass/volume] in Serum or Plasma0.3-1.0[facility] Cannabinoids [Presence] in Urine by Screen methodOrdered By: Renny Roberts on 21-44-1762Efjrplhexghb Screen Ql (U)Cannabinoids [Presence] in Urine by Screen methodNegativeCleveland ClinicComment on above:These are unconfirmed results and should not be used for legal purposes. Drug Cut-Off Concentration: AMPH 1000 ng/mL YOVANY 200 ng/mL DERRICK 200 ng/mL COCM 300 ng/mL OP 300 ng/mL PCP 25 ng/mL THC 20 ng/mLDrug Screen,Urineon 98-13-9350Sozkjkwudob Screen,UrineNegativeNormalNegativeThe Unc Health Physician GroupComment on above: Performed By: #### UHCG, URDS ####[place] [address] [place], [place] [address]QRCSweivwugudm Screen,UrineNegativeNormalNegativeThe Unc Health Physician GroupComment on above:Performed By: #### MARYANACG, URDS ####[address] [address]FXK Benzodiazepines Screen,UrineNegativeNormalNegativeThe [facility] Physician Group Comment on above:Performed By: #### MARYANACG, URDS ####[address] [address]XOPSpqoirgmvof Screen,UrineNegativeNormal NegativeThe Unc Health Physician GroupComment on above:Result Comment: These are unconfirmed results and should not be used for legal purposes. Drug Cut-Off Concentration: AMPH 1000 ng/mL YOVANY 200 ng/mL DERRICK 200 ng/mL COCM 300 ng/mL OP 300 ng/mL PCP 25 ng/mL THC 20 ng/mL PERFORMED BY: [facility] [address] [place] [address] PATHOLOGIST VISUAL AID EXPERT KENZIE LAN M.D.Performed By: #### UHCG, URDS ####[place] [address] [place], [place] [address]GCTPepnsko Screen,UrineNegative NormalNegativeThe Unc Health Physician GroupComment on above:Performed By: #### UHCG, URDS ####[address] [address] USAOpiate Screen,UrineNegativeNormalNegativeThe Unc Health Physician GroupComment on above:Performed By: #### UHCG, URDS ####[facility] [facility] [place], [place] [address]MNZDjzkbjxvtptxq Screen,UrineNegativeNormal NegativeThe [facility] Health Physician [facility] Grove CenterComment on above:Performed By: #### UHCG, URDS ####[facility] [facility], [place] [address]SMNHXO ( test) IA.rapid Ql (U)Ordered By: Renny Roberts on 57-13-8949CBI ( test) Ql (U)Urine human chorionic gonadotropin (hCG) detection by immunoassayCleveland ClinicHCG,Urineon 15-55-1183Wyay HCG ( test) Ql (U)NegativeNormalThe [facility] Health Physician Diamond Grove CenterComment on above:Result Comment: PERFORMED BY: [facility] [address] [place] [address] PATHOLOGIST VISUAL AID EXPERT KENZIE LAN M.D.Performed By: #### UHCG, URDS ####[facility] [facility] [place], [place] [address]IJKJjd 04-28-2024L Specimen: [id number] Received: 04/28/24 Status: TAYLOR Hester Num: [id number] Spec Type: Surgical Subm Dr: Zhao Juárez, DO Tissues: A Gallbladder (GALLBLADDER) Procedures: HE/2, Gross/Micro L3 Age/ Patient Sex Location Account Attending Physician Yue Dawn 33/F [place] [id number] Zhao Juárez, DO SPEC NUM: [id number] RECD: 04/28/24 STATUS: TAYLOR HESTER NUM: [id number] TJ: 04/28/24- SUBM DR: Zhao Juárez DO ENTERED: 04/28/[address]: NORA TYPE: Surgical DEPT: S ENTERED BY: [id number] RECV BY: [id number] ORDERED: HE/2, Gross/Micro L3 ORDERED: HE/2, Gross/Micro L3 Pathological Diagnosis Gallbladder, cholecystectomy: Chronic cholecystitis and cholelithiasis. Clinical Information Symptomatic cholelithiasis Gross Description Part A is received in formalin labeled with the patients name, date of , and gallbladder is an intact gallbladder, 10 x 4 x 2.5 cm with a 0.3 cm cystic duct closed by a silver metallic staple. A 1.1 cm in greatest dimension periductal lymph node candidate is identified, serially sectioned, and entirely submitted in A1. The serosa is hutchinson-pink, smooth and glistening; the hepatic bed is rough and irregular. The gallbladder is open to exude 3 hutchinson-brown to yellow, granular calculi, 0.9, 2.3 and 2.4 cm in greatest dimension. The mucosa is tran-hutchinson to pink and trabecular. The wall the gallbladder ranges from 0.1 to 0.3 cm in thickness with overlying adipose tissue, up to 0.8 cm in thickness. Supervisor Payroll sections of the gallbladder are submitted in A2. (2, ss, S2-069 A) CPT Codes 10131 Specimen: [id number] Received: 04/28/24 Status: TAYLOR Hester Num: [id number] Spec Type: Surgical Subm Dr: Zhao Juárez DO Tissues: A Gallbladder (GALLBLADDER) Procedures: ZORAN/Afua, Gross/Micro L3 Patient: Yue Dawn [id number] (Continued) Signed (signature on file) Kenzie Lan MD 04/29/[address] [place] [address] Physician GroupOpiates [Presence] in Urine by Screen methodOrdered By: Renny Roberts on 06-39-1659Tvessbf Screen Ql (U)Opiates [Presence] in Urine by Screen methodNegativeCleveland Clinic Phencyclidine Screen Ql (U)Ordered By: Renny Roberts on 03-12-0076Vqcaffxzvrxsi Ql (U)Phencyclidine [Presence] in Urine by Screen methodNegativeCleveland ClinicAlanine aminotransferase [Enzymatic activity/volume] in Serum or PlasmaOrdered By: Louie Nevarez on 05-60-1756KBQ [Catalytic activity/Vol]24 U/L Normal7-52Cleveland ClinicComment on above:Performed By: #### HEPATIC, BMP, LIPASE, CBC #### [facility] [address] [place] [address] USAAlbumin [Mass/volume] in Serum or Plasma by Bromocresol green (BCG) dye binding methoOrdered By: Louie Nevarez on 48-18-2169Hwflbbn BCG dye [Mass/Vol]4.1 g/dL3.5-5.7FMercy Health Allen HospitalAlkaline phosphatase [Enzymatic activity/volume] in Serum or PlasmaOrdered By: Louie Nevarez on 59-11-1625BJC [Catalytic activity/Vol]73 U/URatmhj09-140CecgssnnsCleveland ClinicComment on above:Performed By: #### HEPATIC, BMP, LIPASE, CBC #### [facility] [address] [place] [address] USAAspartate aminotransferase [Enzymatic activity/volume] in Serum or PlasmaOrdered By: Louie Nevarez on 30-68-0009DYQ [Catalytic activity/Vol]14 U/QNfioib86-02QdutkhdlzCleveland ClinicComment on above: Performed By: #### HEPATIC, BMP, LIPASE, CBC #### [facility] [address] [place] [address] USAAutomated basophil %Ordered By: Louie Nevarez on 61-03-8093Tsdkzujvh/100 WBC (Bld)1.2 %Normal.[facility] Comment on above:Performed By: #### HEPATIC, BMP, LIPASE, CBC #### [place] [address] USAAutomated basophil countOrdered By: Louie Nevarez on 32-93-7090Wdnqyzlvi (Bld) [#/Vol]0.1 10*3/uLNormal0.0-0.2FMercy Health Allen HospitalComment on above:Result Comment: PERFORMED BY: [place] [address] PATHOLOGIST VISUAL AID EXPERT FILIBERTO CEE M.D.Performed By: #### HEPATIC, BMP, LIPASE, CBC #### [place] [address] USAAutomated blood monocyte countOrdered By: Louie Nevarez on 04-00-3926Nztyhpaax (Bld) [#/Vol]0.5 10*3/uLNormal0.0-0.8Cleveland ClinicComment on above:Performed By: #### HEPATIC, BMP, LIPASE, CBC #### [facility] [address] [place] [address] USAAutomated eosinophil %Ordered By: Louie Nevarez on 56-75-4556Ngchxmeqqlv/100 WBC (Bld)4.3 %Normal.[facility] Comment on above:Performed By: #### HEPATIC, BMP, LIPASE, CBC #### [place] [address] USAAutomated eosinophil countOrdered By: Louie Nevarez on 79-89-9014Gazyuwyhhod (Bld) [#/Vol]0.3 10*3/uLNormal0.0-0.45Cleveland ClinicComment on above:Performed By: #### HEPATIC, BMP, LIPASE, CBC #### [place] [address] USAAutomated monocyte %Ordered By: Louie Nevarez on 04-05-6707Jlojvkpag/100 WBC (Bld)7.8 %Normal.[facility] Comment on above:Performed By: #### HEPATIC, BMP, LIPASE, CBC #### [facility] [address] [place] [address] USAAutomated neutrophil %Ordered By: Louie Nevarez on 54-81-2414Kgpvmhmytxb/100 WBC (Bld)48.7 %Normal.Cleveland ClinicComment on above:Performed By: #### HEPATIC, BMP, LIPASE, CBC #### [facility] [address] [place] [address] USABasic Metabolic Panelon 35-43-0405Zmrsmozmym Clr Calc Ksjqlzkg94.13NoAtrium Health [facility] Physician Diamond Grove CenterComment on above:Performed By: #### HEPATIC, BMP, LIPASE, CBC #### [facility] [address] [place] [address] USAGFR/1.73 sq M.predicted MDRD (S/P/Bld) [Vol rate/Area] mL/min/{1.73_m2}NormalThe Unc Health Physician Diamond Grove CenterComment on above:Performed By: #### HEPATIC, BMP, LIPASE, CBC #### [facility] [address] [place] [address] USABilirubin Test strip Ql (U)Ordered By: Louie Nevarez on 36-95-4776Mibmbsbcu Ql (U)NegativeNegativeCleveland Clinic Bilirubin.direct [Mass/volume] in Serum or PlasmaOrdered By: Louie Nevarez on 57-25-7935Jtjblteqt.direct [Mass/Vol]0.00 mg/dLLow0.03-0.18FMercy Health Allen HospitalComment on above:If the DBIL is less than 0.1, IBIL is not able to becalculated.Bilirubin.total [Mass/volume] in Serum or PlasmaOrdered By: Louie Nevarez on 52-59-2669Odzhfskay [Mass/Vol]0.4 mg/dLNormal0.3-1.0Cleveland ClinicComment on above:Performed By: #### HEPATIC, BMP, LIPASE, CBC #### [facility] [address] [place] [address] USACT abdomen pelvis w conon 87-85-3962VJ abdomen pelvis w [facility] [address] [place] [address] CT Scan Report Signed Patient: Yue Dawn MR#: [id number] : 1990 Acct:[id number] Age/Sex: 33 / F ADM Date: 01/19/24 Loc: ER Room: Type: [facility] ER Attending Dr: Copies to: Louie Nevarez MD Ordering Provider: Louie Nevarez MD Date of Service: 01/19/24 CT/CT abdomen pelvis w con: Abdominal pain CT abdomen pelvis w con 01/19/2024 5:29 PM SIGNS AND SYMPTOMS: Abdominal pain, nausea TECHNIQUE: Multidetector ct axial images of the abdomen and pelvis were obtained with IV contrast. Multiplanar reformats were performed and reviewed to further define anatomy and possible pathology. CT was performed with one or more of the following dose reduction techniques: Automated exposure control, adjustment of the mA and/or kV according to patient size, or use of iterative reconstruction technique. COMPARISON: None. FINDINGS: Lower Chest: Within normal limits. ABDOMEN: Liver: Within normal limits. Bile Ducts: Normal caliber. Gallbladder: Stones are noted in the gallbladder lumen. Pancreas: Within normal limits. Spleen: Within normal limits. Adrenals: Within normal limits. Kidneys: Within normal limits. Pelvis: Reproductive Organs: No pelvic masses. Ureters: Within normal limits. Bladder: Within normal limits. Bowel: Normal caliber. Mesenteric Lymph Nodes: No enlarged mesenteric lymph nodes. Peritoneum: No ascites or free air, no fluid collection. Vessels: within normal limits Retroperitoneum: Within normal limits. Abdominal Wall: Within normal limits. Bones: Bilateral L5 pars defects are noted without significant spondylolisthesis. CT/CT abdomen pelvis w con IMPRESSION: No bowel obstruction or obstructive uropathy. No acute intra-abdominal pathology. Stones are noted in the gallbladder lumen. Impression dictated by: Gallito Bridges M.D.01/19/2024 6:10 PM Dictation Location: [place] [address] Transcribed By: [facility] 01/19/241809 Dictated By: Gallito Bridges II, MD 01/19/241801 Signed By: 01/19/241809[facility] Physician GroupCalcium [Mass/volume] in Serum or PlasmaOrdered By: Louie Nevarez on 80-83-4156Ebdvejh [Mass/Vol]9.5 mg/dL Normal8.6-10.3FMercy Health Allen HospitalComment on above:Performed By: #### HEPATIC, BMP, LIPASE, CBC #### [facility] [address] [place] [address] USACarbon dioxide, total [Moles/volume] in Serum or Plasma Ordered By: Louie Nevarez on 67-88-3871HO1 [Moles/Vol]22.6 mmol/LNormal 21.0-31.0Cleveland ClinicComment on above:Performed By: #### HEPATIC, BMP, LIPASE, CBC #### [facility] [address] [place] [address] USAChloride [Moles/volume] in Serum or PlasmaOrdered By: Louie Nevarez on 68-48-9727Xokwijpy [Moles/Vol]106 mmol/WBsqpdy80-028KjtjayqdtCleveland ClinicComment on above:Performed By: #### HEPATIC, BMP, LIPASE, CBC #### [facility] [address] [place] [address] USAColor of Urine by AutoOrdered By: Louie Nevarez on 17-09-7900Mmdgm (U)Light-yellowNormalYMercy Health Fairfield Hospital Comment on above:Order Comment: Name Collection Type:: Clean-Voided Midstream Performed By: #### UHCG, UA ####[facility] [address] [place] [address] USAComplete Blood Count Auto Diffon 27-28-5533Seys Corpuscular HGB Conc34.9 g/iREeaxev77.0-35.0The [facility] Health Physician GroupComment on above:Performed By: #### HEPATIC, BMP, LIPASE, CBC #### [facility] [address] [place] [address] USAMonocytes/100 WBC (Bld)18.38 %Normal0.00-20.00The [facility] Health Physician GroupComment on above:Performed By: #### HEPATIC, BMP, LIPASE, CBC #### [facility] [address] [place] [address] USANRBC%0.1 /100{WBC}Normal0-0.5The [facility] Comment on above:Performed By: #### HEPATIC, BMP, LIPASE, CBC #### [facility] [address] [place] [address] USACreatinine [Mass/volume] in Serum or PlasmaOrdered By: Louie Nevarez on 34-42-8728Nwwsdfaafb [Mass/Vol]0.95 mg/dLNormal0.60-1.20 Cleveland ClinicComment on above:Performed By: #### HEPATIC, BMP, LIPASE, CBC #### [facility] [address] [place] [address] USAErythrocyte distribution width [Ratio] by Automated count Ordered By: Louie Nevarez on 37-10-2445Zsmxfpmkwuc distribution width (RBC) [Ratio]12.7 %Lprnys29.9-15.3FMercy Health Allen HospitalComment on above: Performed By: #### HEPATIC, BMP, LIPASE, CBC #### [facility] [address] [place] [address] USAErythrocytes [#/volume] in Blood by Automated countOrdered By: Louie Nevarez on 65-92-3317FMQ (Bld) [#/Vol]4.34 10*6/uLNormal3.60-5.00 [facility] ClinicComment on above:Performed By: #### HEPATIC, BMP, LIPASE, CBC #### [place] [address] USAGlucose [Mass/volume] in Serum or PlasmaOrdered By: Louie Nevarez on 20-96-2994Cjxtysx [Mass/Vol]89 mg/lCWuyxfx57-739WrmamdkupCleveland ClinicComment on above:ADA recommended reference rangeRandom Glucose Reference Range is dependent on time and content of last meal. Glucose of more than 200 mg/dL in a nonstressed, ambulatory subject supports the diagnosisof Diabetes Mellitus.Result Comment: Random Glucose Reference Range is dependent on time and content of last meal. Glucose of more than 200 mg/dL in a nonstressed, ambulatory subject supports the diagnosis of Diabetes Mellitus. ADA recommended reference rangePerformed By: #### HEPATIC, BMP, LIPASE, CBC #### [facility] [address] [place] [id number] USAGlucose [Mass/volume] in Urine by Test stripOrdered By: Louie Nevarez on 43-14-8761Qaqvhgt Test strip (U) [Mass/Vol]Normal mg/dLNormal Cleveland ClinicHCG ( test) IA.rapid Ql (U)Ordered By: Louie Nevarez on 01-58-7791DOU ( test) Ql (U)NegativeCleveland ClinicHCG,Urineon 71-54-0295Ehqp HCG ( test) Ql (U) NegativeNormCleveland Clinic [facility] Physician GroupComment on above:Order Comment: Name Collection Type:: Clean-Voided MidstreamResult Comment: PERFORMED BY: [place] [address] PATHOLOGIST VISUAL AID EXPERT FILIBERTO CEE M.D.Performed By: #### UHCG, UA ####[facility] [place], [place] [address] USAHematocrit [Volume Fraction] of Blood by Automated countOrdered By: Louie Nevarez on 25-51-6673Qijwgzxwxh (Bld) [Volume fraction]36.4 %Ykzpnu59.0-46.4FMercy Health Allen HospitalComment on above:Performed By: #### HEPATIC, BMP, LIPASE, CBC #### [facility] [address] [place], [place] [address] USAHemoglobin Test strip Ql (U)Ordered By: Louie Nevarez on 30-49-3517Kzgtytffpn Ql (U)NegativeNegativeCleveland Clinic Hemoglobin [Mass/volume] in BloodOrdered By: Louie Nevarez on 01-19-2024 Hemoglobin (Bld) [Mass/Vol]12.7 g/uOVsctya02.8-15.4FMercy Health Allen HospitalComment on above:Performed By: #### HEPATIC, BMP, LIPASE, CBC #### [facility] [address] [place], [place] [address] USAHepatic Panelon 28-67-1689Ajmoybz [Mass/Vol]4.1 g/dLNormal 3.5-5.7The [facility] Health Physician GroupComment on above:Performed By: #### HEPATIC, BMP, LIPASE, CBC #### [facility] [address] [place] [address] USABilirubin,Indirect0.4 mg/dLNormalThe Unc Health Physician GroupComment on above:Performed By: #### HEPATIC, BMP, LIPASE, CBC #### [facility] [address] [place] [address] USABilirubin.indirect [Mass/Vol]0.00 mg/dLLow0.03-0.18The [facility] Physician Diamond Grove CenterComment on above:Result Comment: If the DBIL is less than 0.1, IBIL is not able to be calculated.Performed By: #### HEPATIC, BMP, LIPASE, CBC #### [facility] [address] [place] [address] USAKetones [Presence] in Urine by Test stripOrdered By: Louie Nevarez on 77-50-3768Whcrivs Ql (U)NegativermalMercy Health St. Elizabeth Boardman HospitalComment on above:Order Comment: Name Collection Type:: Clean-Voided MidstreamPerformed By: #### UHCG, UA ####[facility] [place] [id number] USALeukocyte esterase [Presence] in Urine by Test stripOrdered By: Louie Nevarez on 82-00-1559Ifptdrqxq esterase Test strip Ql (U)NegativeAdams County HospitalComment on above:Order Comment: Name Collection Type:: Clean-Voided MidstreamPerformed By: #### UHCG, UA ####[facility] [place] [id number] USALeukocytes [#/volume] corrected for nucleated erythrocytes in Blood by Automated counOrdered By: Louie Nevarez on 00-81-2002CZG corrected for nucl RBC Auto (Bld) [#/Vol]6.8 10*3/uL3.8-11.[facility] Leukocytes [#/volume] in Blood by Automated countOrdered By: Louie Nevarez on 12-82-3494FLX (Bld) [#/Vol]6.8 10*3/uLNormal3.8-11.Mer[facility] Health Allen HospitalComment on above:Performed By: #### HEPATIC, BMP, LIPASE, CBC #### [place] [address] USALipase [Enzymatic activity/volume] in Serum or Plasma Ordered By: Louie Nevarez on 90-67-4675Ffjwjq [Catalytic activity/Vol]18.0 U/L Pnwuze93.0-82.0C[facility] ClinicComment on above:Result Comment: PERFORMED BY: [place] [address] PATHOLOGIST VISUAL AID EXPERT FILIBERTO CEE M.D.Performed By: #### HEPATIC, BMP, LIPASE, CBC #### [place] [address] USALymphocytes [#/volume] in Blood by Automated countOrdered By: Louie Nevarez on 27-25-7339Cgajnarsbqf (Bld) [#/Vol]2.6 10*3/uLNormal 1.00-4.8C[facility] ClinicComment on above:Performed By: #### HEPATIC, BMP, LIPASE, CBC #### [place] [address] USALymphocytes/100 leukocytes in Blood by Automated count Ordered By: Louie Nevarez on 09-64-0670Pnaxuslavak/100 WBC (Bld)38.0 %Normal. Cleveland ClinicComment on above:Performed By: #### HEPATIC, BMP, LIPASE, CBC #### [facility] [address] [place] [address] [Entitic mass] by Automated countOrdered By: Louie Nevarez on 02-71-0247BEN (RBC) [Entitic mass]29.3 tuTetrrm34.7-34.3FMercy Health Allen HospitalComment on above:Performed By: #### HEPATIC, BMP, LIPASE, CBC #### [address] Auto (RBC) [Mass/Vol]Ordered By: Louie Nevarez on 61-54-2050JMAB (RBC) [Mass/Vol]34.9 g/dL32.0-35.0Cleveland ClinicMCV [Entitic volume] by Automated countOrdered By: Louie Nevarez on 62-89-5772RDX (RBC) [Entitic vol]84.0 oPXhzfey43-249BhzjqsmlqCleveland ClinicComment on above:Performed By: #### HEPATIC, BMP, LIPASE, CBC #### [facility] [address] [place] [address] USAMonocyte distribution width [Entitic volume] in Blood by AutomatedOrdered By: Louie Nevarez on 94-66-2520Guxcglxq distribution width Auto (Bld) [Entitic vol]18.38 %0.00-20.00[facility] Neutrophils [#/volume] in Blood by Automated countOrdered By: Louie Nevarez on 46-04-9406Lybpaysutvn (Bld) [#/Vol]3.3 10*3/uLNormal1.8-7.7FMercy Health Allen HospitalComment on above:Performed By: #### HEPATIC, BMP, LIPASE, CBC #### [place] [address] USANitrite Test strip Ql (U)Ordered By: Louie Nevarez on 98-98-5983Mmtovyv Ql (U)NegativeNegativeCleveland ClinicNo Panel InformationOrdered By: Louie Nevarez on 47-58-9052Rqdmqjruw GFR (CKD-EPI) > 60.0 mL/MinCleveland ClinicPharmacy Creatinine Clearance (Chem98.13Cleveland ClinicNucleated erythrocytes [Presence] in Blood by Automated countOrdered By: Louie Nevarez on 75-24-4197Kkeimkouj RBC Auto Ql (Bld)0.1 /100{WBC}0-0.5FMercy Health Allen HospitalPlatelet mean volume [Entitic volume] in Blood by Automated countOrdered By: Louie Nevarez on 38-29-7873Ewszoozv mean volume (Bld) [Entitic vol]7.9 fLNormal6.3-10.7FMercy Health Allen HospitalComment on above:Performed By: #### HEPATIC, BMP, LIPASE, CBC #### [facility] [address] [place] [address] USAPlatelets [#/volume] in Blood by Automated countOrdered By: Louie Nevarez on 41-36-5962Grqddoxnn (Bld) [#/Vol]301 10*3/hGXtvmjl171-642 [facility] ClinicComment on above:Performed By: #### HEPATIC, BMP, LIPASE, CBC #### [facility] [address] [place] [address] USAPotassium [Moles/volume] in Serum or PlasmaOrdered By: Louie Nevarez on 18-38-0858Xpuickfry [Moles/Vol]4.1 mmol/LNormal3.5-5.1 [facility] ClinicComment on above:Performed By: #### HEPATIC, BMP, LIPASE, CBC #### [place] [address] USAProtein Test strip (U) [Mass/Vol]Ordered By: Louie Nevarez on 04-47-0111Gqsvqhg (U) [Mass/Vol]NegativeNegativeCleveland ClinicProtein [Mass/volume] in Serum or PlasmaOrdered By: Louie Nevarez on 06-45-9121Kvbstac [Mass/Vol]6.7 g/dLNormal6.4-8.9C[facility] ClinicComment on above:Performed By: #### HEPATIC, BMP, LIPASE, CBC #### [place] [address] USASerum globulin measurement by calculation (mass/volume) Ordered By: Louie Nevarez on 02-79-7552Bkeaixth (S) [Mass/Vol]2.6 g/dLNormal [facility] ClinicComment on above:Performed By: #### HEPATIC, BMP, LIPASE, CBC #### [facility] [address] [place] [address] USASerum or plasma albumin/globulin mass ratioOrdered By: Louie Nevarez on 53-53-3960Kalykix/Globulin [Mass ratio]1.6 {ratio}Normal [facility] ClinicComment on above:Performed By: #### HEPATIC, BMP, LIPASE, CBC #### [place] [address] USASerum or plasma anion gap determinationOrdered By: Louie Nevarez on 42-89-0622Htlop gap [Moles/Vol]11.5 mmol/LNormal6.0-15.0C[facility] ClinicComment on above:Performed By: #### HEPATIC, BMP, LIPASE, CBC #### [facility] [address] [place] [address] USASerum or plasma non-glucuronidated bilirubin measurement (mass/volume)Ordered By: Louie Nevarez on 32-50-3072Vovibhvnj.indirect [Mass/Vol]0.4 mg/dLGeorgetown Behavioral Hospitalodium [Moles/volume] in Serum or PlasmaOrdered By: Louie Nevarez on 21-01-4049Aphysc [Moles/Vol]136 mmol/IHwbshj975-249UzuxsstqjCleveland ClinicComment on above:Performed By: #### HEPATIC, BMP, LIPASE, CBC #### [facility] [address] [place] [address] USASpecific gravity Test strip (U) [Rel density]Ordered By: Louie Nevarez on 65-97-5887Rulcprzq gravity (U) [Rel density]1.0111.001-1.030 Cleveland ClinicUrea nitrogen [Mass/volume] in Serum or Plasma Ordered By: Louie Nevarez on 18-72-0367Aoxz nitrogen [Mass/Vol]10 mg/dLNormal 7-25C[facility] ClinicComment on above:Performed By: #### HEPATIC, BMP, LIPASE, CBC #### [facility] [address] [place] [address] USAUrinalysison 30-41-2892Tofesolth,UrineNegativeNormal NegativeThe Unc Health Physician GroupComment on above:Order Comment: Name Collection Type:: Clean-Voided MidstreamPerformed By: #### UHCG, UA ####[facility] [place] [id number] USAGlucose Ql (U)NormalNormalNormalThe Unc Health Physician GroupComment on above:Order Comment: Name Collection Type:: Clean-Voided MidstreamPerformed By: #### UHCG, UA ####[facility] [place] [address] USA Nitrite,UrineNegativeNormalNegativeManatee Memorial Hospital Physician GroupComment on above:Order Comment: Name Collection Type:: Clean-Voided MidstreamPerformed By: #### UHCG, UA ####[place] [address] [place] [address] USAOccult Blood,UrineNegativeNormalNegativeThe [facility] Physician Group Comment on above:Order Comment: Name Collection Type:: Clean-Voided Midstream Performed By: #### UHCG, UA ####[address] [address] USAProtein,UrineNegativeNormalNegativeThe Unc Health Physician GroupComment on above:Order Comment: Name Collection Type:: Clean- Voided MidstreamPerformed By: #### UHCG, UA ####[address] [address] USASpecificy [place],Urine1.011Normal 1.001-1.030The Unc Health Physician GroupComment on above:Order Comment: Name Collection Type:: Clean-Voided MidstreamPerformed By: #### UHCG, UA ####[address] [address] [facility] Urobilinogen,UrineNormalNormalNormalThe Unc Health Physician GroupComment on above:Order Comment: Name Collection Type:: Clean-Voided MidstreamPerformed By: #### UHCG, UA ####[address] [address] USAUrine appearanceOrdered By: Louie Nevarez on 38-38-1274Epcwetjskm (U) ClearNormalCKettering Memorial HospitalComment on above:Order Comment: Name Collection Type:: Clean-Voided MidstreamPerformed By: #### UHCG, UA ####[address] [address] [facility] Urobilinogen Test strip (U) [Mass/Vol]Ordered By: Louie Nevarez on 01-19-2024 Urobilinogen (U) [Mass/Vol]Normal mg/dLMercy Health St. Charles HospitalpH of Urine by Test stripOrdered By: Louie Nevarez on 13-73-9241kU (U)5.5 [pH] Normal5.0-9.0C[facility] ClinicComment on above:Order Comment: Name Collection Type:: Clean-Voided MidstreamPerformed By: #### UHCG, UA ####[facility] [address] [place] [id number] [facility] Basophils Auto (Bld) [#/Vol]Ordered By: Billy Eaton on 01-26-2022 Basophils (Bld) [#/Vol]0.0 10*3/uL0.0-0.2FMercy Health Allen Hospital Basophils/100 WBC Auto (Bld)Ordered By: Billy Eaton on 01-26-2022 Basophils/100 WBC (Bld)0.8 %.C[facility] ClinicBody fluid albumin measurement (mass/volume)Ordered By: Billy Eaton on 74-62-5528Wxtpphd (Body fld) [Mass/Vol]3.6 g/dL3.2-5.5FMercy Health Allen HospitalCreatinine and Glomerular filtration rate.predicted panel (S/P/Bld)Ordered By: Billy Eaton on 88-94-0344Aiwzeqmmhh [Mass/Vol]0.81 mg/dL0.44-1.03Cleveland ClinicEosinophils Auto (Bld) [#/Vol]Ordered By: Billy Eaton on 95-19-2169Mfqvbcukfwq (Bld) [#/Vol]0.3 10*3/uL0.0-0.45Cleveland ClinicEosinophils/100 WBC Auto (Bld)Ordered By: Billy aEton on 04-68-3222Fayfznphpik/100 WBC (Bld)5.3 %.Cleveland ClinicErythrocyte distribution width Auto (RBC) [Ratio]Ordered By: Billy Eaton on 24-72-0547Lyqfmtbexyp distribution width (RBC) [Ratio]14.7 % 11.9-15.3FMercy Health Allen HospitalEstimated glomerular filtration rate (GFR) non- AmericanOrdered By: Billy Eaton on 01-26-2022 GFR/1.73 sq M.predicted among non-blacks MDRD (S/P/Bld) [Vol rate/Area]> 60 mL/MinCleveland ClinicGlobulin Calc (S) [Mass/Vol]Ordered By: Billy Eaton on 95-47-2126Svxbqdlp (S) [Mass/Vol]3.0 g/dLCleveland ClinicGlucose mean value [Mass/volume] in Blood Estimated from glycated hemoglobinOrdered By: Billy Eaton on 14-82-2318Xldpasm glucose Estimated from glycated hemoglobin (Bld) [Mass/Vol]108 mg/dLCleveland ClinicHematocrit Auto (Bld) [Volume fraction]Ordered By: Billy Eaton on 66-27-2294Gsuduwswub (Bld) [Volume fraction]38.4 % 34.0-46.4FMercy Health Allen HospitalHemoglobin A1c percentageOrdered By: Billy Eaton on 35-89-7332OiA3i (Bld) [Mass fraction]5.4 %4.3-5.6 [facility] ClinicComment on above:Increased risk for diabetes: 5.7 - 6.4diabetes: >6.4glycemic control for adults with diabetes: <7.0 Hemoglobin [Mass/volume] in BloodOrdered By: Billy Eaton on 01-26-2022 Hemoglobin (Bld) [Mass/Vol]12.8 g/dL11.8-15.4FMercy Health Allen Hospital Laboratory - Hematology and Cell countsOrdered By: Billy Eaton on 93-91-1758Yrobjjgvl RBC/100 WBC (Bld) [Ratio]0.1 %0-0.5FMercy Health Allen HospitalLeukocytes [#/volume] in Blood by Automated countOrdered By: Billy Eaton on 17-87-2806UIR (Bld) [#/Vol]5.8 10*3/uL4.5-11.0[facility] Medical CenterLymphocytes Auto (Bld) [#/Vol]Ordered By: Billy Eaton on 83-70-9040Vstbisyfgvk (Bld) [#/Vol]2.3 10*3/uL1.00-4.8[facility] ClinicLymphocytes/100 WBC Auto (Bld)Ordered By: Billy Eaton on 53-81-3334Zuzebacvcjf/100 WBC (Bld)39.9 %.[facility] ClinicMCH Auto (RBC) [Entitic mass]Ordered By: Billy Eaton on 78-31-9214AGK (RBC) [Entitic mass]27.5 pg24.7-34.3FMercy Health Allen HospitalMCHC Auto (RBC) [Mass/Vol]Ordered By: Billy Eaton on 01-26-2022 MCHC (RBC) [Mass/Vol]33.4 g/dL32.0-35.0[facility] ClinicMCV Auto (RBC) [Entitic vol]Ordered By: Billy Eaton on 21-28-0452DML (RBC) [Entitic vol]82.3 nO94-213GyfbqtmcfCleveland ClinicMonocytes Auto (Bld) [#/Vol]Ordered By: Billy Eaton on 18-00-4244Vwdiqpgau (Bld) [#/Vol]0.4 10*3/uL0.0-0.8[facility] ClinicMonocytes/100 WBC Auto (Bld) Ordered By: Billy Eaton on 07-50-8677Dupljpqot/100 WBC (Bld)7.1 %. [facility] ClinicNeutrophils Auto (Bld) [#/Vol]Ordered By: Billy Eaton on 12-60-3689Glnsrbrszyk (Bld) [#/Vol]2.7 10*3/uL1.8-7.7 [facility] ClinicNeutrophils/100 WBC Auto (Bld)Ordered By: Billy Eaton on 37-61-1227Fjtjbzycyqe/100 WBC (Bld)46.9 %.[facility] ClinicNo Panel InformationOrdered By: Billy Eaton on 53-33-4622Posxtikgv GFR ()> 60 mL/MinCleveland ClinicComment on above:GFR estimated reference range: According to KDOQI guidelines, <60 ml/min/1.73m2 is sufficient todiagnose a patient with chronic kidney disease.Pharmacy Creatinine Clearance (ChemN/AFMercy Health Allen HospitalValproic Acid (Depakene) Level< 10.0 ug/mL50.0-100.0[place] ClinicComment on above:Last dose: -Platelet mean volume Auto (Bld) [Entitic vol]Ordered By: Billy Eaton on 93-82-5069Eqxaebcl mean volume (Bld) [Entitic vol]8.2 fL6.3-10.7FMercy Health Allen HospitalPlatelets Auto (Bld) [#/Vol]Ordered By: Billy Eaton on 28-55-6760Dauwxdpub (Bld) [#/Vol]346 10*3/rB387-701YpavftrdvCleveland ClinicProtein [Mass/volume] in Serum or PlasmaOrdered By: Billy Eaton on 49-93-4722Jsphbgt [Mass/Vol]6.6 g/dL6.1-7.9C[facility] ClinicRBC Auto (Bld) [#/Vol] Ordered By: Billy Eaton on 05-09-7457IJB (Bld) [#/Vol]4.66 10*6/uL 3.60-5.00[facility]al Hospitalerum or plasma alanine aminotransferase measurement without P-5'-P (enzymatic activiOrdered By: Billy Eaton on 75-96-5737FYJ No additional P-5'-P [Catalytic activity/Vol]32 U/O97-76KxrocumpjGeorgetown Behavioral Hospitalerum or plasma albumin/globulin mass ratioOrdered By: Billy Eaton on 01-26-2022 Albumin/Globulin [Mass ratio]1.2 {ratio}[facility] Hospitalerum or plasma alkaline phosphatase measurement (enzymatic activity/volume)Ordered By: Billy Eaton on 28-72-1054WDO [Catalytic activity/Vol]108 U/L32-92 [facility] Hospitalerum or plasma anion gap determinationOrdered By: Billy Eaton on 34-16-2039Qduxw gap [Moles/Vol]14.9 mmol/L6.0-15.0 [facility] Hospitalerum or plasma aspartate aminotransferase measurement (enzymatic activity/volume)Ordered By: Billy Eaton on 83-80-9315CXK [Catalytic activity/Vol]24 U/P23-82PytedezpaGeorgetown Behavioral Hospitalerum or plasma calcium measurement (mass/volume)Ordered By: Billy Eaton on 38-44-4397Hhvbasd [Mass/Vol]9.5 mg/dL8.2-10.2FPremier Health Miami Valley Hospital Southerum or plasma chloride measurement (moles/volume)Ordered By: Billy Eaton on 32-43-2611Tlmoyyvq [Moles/Vol]104 mmol/F01-706QnlxgodpxGeorgetown Behavioral Hospitalerum or plasma glucose measurement (mass/volume)Ordered By: Billy Eaton on 49-24-1148Stvimet [Mass/Vol]100 mg/mN19-141 [place] ClinicComment on above:ADA recommended reference rangeRandom Glucose Reference Range is dependent on time and content of last meal. Glucose of more than 200 mg/dL in a nonstressed, ambulatory subject supports the diagnosisof Diabetes Mellitus.Serum or plasma potassium measurement (moles/volume)Ordered By: Billy Eaton on 39-30-8321Czrlkgfcw [Moles/Vol]4.0 mmol/L3.5-5.1FPremier Health Miami Valley Hospital Southerum or plasma sodium measurement (moles/volume)Ordered By: Billy Eaton on 01-26-2022 Sodium [Moles/Vol]134 mmol/K434-765ImfrymkdxGeorgetown Behavioral Hospitalerum or plasma total bilirubin measurement (mass/volume)Ordered By: Billy Eaton on 08-44-6048Gyocrbtie [Mass/Vol]0.6 mg/dL0.3-1.2FPremier Health Miami Valley Hospital Southerum or plasma total carbon dioxide measurement (moles/volume) Ordered By: Billy Eaton on 66-05-8690IA9 [Moles/Vol]19.1 mmol/L 22.0-30.0[facility] Hospitalerum or plasma urea nitrogen measurement (mass/volume)Ordered By: Billy Eaton on 41-66-2337Afmh nitrogen [Mass/Vol]6 mg/dL12-29C[facility] ClinicBody fluid albumin measurement (mass/volume)Ordered By: Billy Eaton on 11-28-2021 Albumin (Body fld) [Mass/Vol]3.7 g/dL3.2-5.5FMercy Health Allen Hospital Creatinine and Glomerular filtration rate.predicted panel (S/P/Bld)Ordered By: Billy Eaton on 73-08-5341Dbltadcvxo [Mass/Vol]0.89 mg/dL0.44-1.03 [facility] ClinicEstimated glomerular filtration rate (GFR) non- AmericanOrdered By: Billy Eaton on 18-60-2105UUX/1.73 sq M.predicted among non-blacks MDRD (S/P/Bld) [Vol rate/Area]> 60 mL/MinCleveland ClinicGlobulin Calc (S) [Mass/Vol]Ordered By: Billy Eaton on 18-01-9303Eonipjys (S) [Mass/Vol]3.2 g/dLCleveland ClinicGlucose mean value [Mass/volume] in Blood Estimated from glycated hemoglobinOrdered By: Billy Eaton on 64-10-9927Jqdzhle glucose Estimated from glycated hemoglobin (Bld) [Mass/Vol]108 mg/dLCleveland ClinicHemoglobin A1c percentageOrdered By: Billy Eaton on 74-81-3546PqN0a (Bld) [Mass fraction]5.4 %4.3-5.6FMercy Health Allen HospitalComment on above:Increased risk for diabetes: 5.7 - 6.4 diabetes: >6.4 glycemic control for adults with diabetes: <7.0Increased risk for diabetes: 5.7 - 6.4diabetes: >6.4glycemic control for adults with diabetes: <7.0No Panel InformationOrdered By: Billy Eaton on 75-94-6828Afbmolspr GFR ()> 60 mL/MinCleveland ClinicComment on above:GFR estimated reference range: According to KDOQI guidelines, <60 ml/min/1.73m2 is sufficient todiagnose a patient with chronic kidney disease.Pharmacy Creatinine Clearance (ChemN/[facility] HospitalValproic Acid (Depakene) Level< 10.0 ug/mL50.0-100.0C[place] ClinicComment on above: Last dose: -Protein [Mass/volume] in Serum or PlasmaOrdered By: Billy Eaton on 56-42-1192Rsgckmm [Mass/Vol]6.9 g/dL6.1-7.9[facility] Hospitalerum or plasma alanine aminotransferase measurement without P-5'-P (enzymatic activiOrdered By: Billy Eaton on 44-35-1646XXA No additional P-5'-P [Catalytic activity/Vol]22 U/F05-36UlamzqowfGeorgetown Behavioral Hospitalerum or plasma albumin/globulin mass ratioOrdered By: Billy Eaton on 98-14-6732Mbsltow/Globulin [Mass ratio]1.2 {ratio}[facility] Hospitalerum or plasma alkaline phosphatase measurement (enzymatic activity/volume)Ordered By: Billy Eaton on 14-59-7093EUD [Catalytic activity/Vol]102 U/C69-02FflcbhkylGeorgetown Behavioral Hospitalerum or plasma aspartate aminotransferase measurement (enzymatic activity/volume)Ordered By: Billy Eaton on 70-28-8984NMZ [Catalytic activity/Vol]21 U/L10-42 [facility] Hospitalerum or plasma calcium measurement (mass/volume)Ordered By: Billy Eaton on 09-13-3312Keugtbm [Mass/Vol] 9.9 mg/dL8.2-10.2FPremier Health Miami Valley Hospital Southerum or plasma chloride measurement (moles/volume)Ordered By: Billy Eaton on 11-28-2021 Chloride [Moles/Vol]105 mmol/I13-139EyknsslczGeorgetown Behavioral Hospitalerum or plasma glucose measurement (mass/volume)Ordered By: Billy Eaton on 89-09-7376Cvcsswv [Mass/Vol]98 mg/kF66-479NzaxtfxqnCleveland Clinic Comment on above:ADA recommended reference range Random Glucose Reference Range is dependent on time and content of last meal. Glucose of more than 200 mg/dL in a nonstressed, ambulatory subject supports the diagnosis of Diabetes Mellitus.ADA recommended reference rangeRandom Glucose Reference Range is dependent on time and content of last meal. Glucose of more than 200 mg/dL in a nonstressed, ambulatory subject supports the diagnosisof Diabetes Mellitus.Serum or plasma potassium measurement (moles/volume)Ordered By: Billy Eaton on 50-63-7912Jkrxnppkp [Moles/Vol]3.9 mmol/L3.5-5.1 [facility] Hospitalerum or plasma sodium measurement (moles/volume)Ordered By: Billy Eaton on 08-69-5558Zurooa [Moles/Vol] 137 mmol/A903-301FnaokughaGeorgetown Behavioral Hospitalerum or plasma total bilirubin measurement (mass/volume)Ordered By: Billy Eaton on 65-19-2837Bfurqiayd [Mass/Vol]0.4 mg/dL0.3-1.2FMercy Health Allen Hospital Serum or plasma total carbon dioxide measurement (moles/volume)Ordered By: Billy Eaton on 89-53-6754UL5 [Moles/Vol]21.3 mmol/L22.0-30.0[facility] Hospitalerum or plasma urea nitrogen measurement (mass/volume) Ordered By: Billy Eaton on 45-45-2064Blqx nitrogen [Mass/Vol]10 mg/dL 12-29C[facility] ClinicBody fluid albumin measurement (mass/volume)Ordered By: Billy Eaton on 74-11-8650Mklmfks (Body fld) [Mass/Vol]3.5 g/dL3.2-5.5FMercy Health Allen HospitalCreatinine and Glomerular filtration rate.predicted panel (S/P/Bld)Ordered By: Billy Eaton on 17-15-7815Ahsrptnomu [Mass/Vol]0.92 mg/dL0.44-1.03C[facility] ClinicEstimated glomerular filtration rate (GFR) non- AmericanOrdered By: Billy Eaton on 68-24-8412MLQ/1.73 sq M.predicted among non-blacks MDRD (S/P/Bld) [Vol rate/Area]> 60 mL/MinCleveland ClinicGlobulin Calc (S) [Mass/Vol]Ordered By: Billy Eaton on 20-52-9198Honclanh (S) [Mass/Vol]2.9 g/dLCleveland Clinic Glucose mean value [Mass/volume] in Blood Estimated from glycated hemoglobin Ordered By: Billy Eaton on 11-60-5127Ebhyrvh glucose Estimated from glycated hemoglobin (Bld) [Mass/Vol]108 mg/dLCleveland Clinic Hemoglobin A1c percentageOrdered By: Billy Eaton on 06-05-0384YzI4y (Bld) [Mass fraction]5.4 %4.3-5.6FMercy Health Allen HospitalComment on above:Increased risk for diabetes: 5.7 - 6.4 diabetes: >6.4 glycemic control for adults with diabetes: <7.0No Panel InformationOrdered By: Billy Eaton on 77-98-2162Cyefccjwa GFR ()> 60 mL/Min [facility] ClinicComment on above:GFR estimated reference range: According to KDOQI guidelines, <60 ml/min/1.73m2 is sufficient todiagnose a patient with chronic kidney disease.Pharmacy Creatinine Clearance (ChemN/A [facility] ClinicValproic Acid (Depakene) Level< 10.0 ug/mL 50.0-100.0C[facility] ClinicComment on above:Last dose: -Protein [Mass/volume] in Serum or PlasmaOrdered By: Billy Eaton on 10-16-2021 Protein [Mass/Vol]6.4 g/dL6.1-7.9[facility] Hospitalerum or plasma alanine aminotransferase measurement without P-5'-P (enzymatic activi Ordered By: Billy Eaton on 20-62-7568CVY No additional P-5'-P [Catalytic activity/Vol]20 U/S74-11CoxsswksmGeorgetown Behavioral Hospitalerum or plasma albumin/globulin mass ratioOrdered By: Billy Eaton on 45-03-3700Vsmwzrh/Globulin [Mass ratio]1.2 {ratio}[facility] Hospitalerum or plasma alkaline phosphatase measurement (enzymatic activity/volume)Ordered By: Billy Eaton on 93-39-0433GXV [Catalytic activity/Vol]96 U/X54-71ThnvmwwtyGeorgetown Behavioral Hospitalerum or plasma aspartate aminotransferase measurement (enzymatic activity/volume)Ordered By: Billy Eaton on 53-54-2183IJO [Catalytic activity/Vol]19 U/L10-42 [facility] Hospitalerum or plasma calcium measurement (mass/volume)Ordered By: Billy Eaton on 94-42-2633Yqozvnx [Mass/Vol] 9.5 mg/dL8.2-10.2FPremier Health Miami Valley Hospital Southerum or plasma chloride measurement (moles/volume)Ordered By: Billy Eaton on 10-16-2021 Chloride [Moles/Vol]107 mmol/D36-393OitwhnwheGeorgetown Behavioral Hospitalerum or plasma glucose measurement (mass/volume)Ordered By: Billy Eaton on 33-36-0327Qrneeck [Mass/Vol]104 mg/dI44-116ChcsmipduCleveland Clinic Comment on above:ADA recommended reference range Random Glucose Reference Range is dependent on time and content of last meal. Glucose of more than 200 mg/dL in a nonstressed, ambulatory subject supports the diagnosis of Diabetes Mellitus.Serum or plasma potassium measurement (moles/volume)Ordered By: Billy Eaton on 63-43-5158Aposvghlb [Moles/Vol]4.2 mmol/L3.5-5.1FPremier Health Miami Valley Hospital Southerum or plasma sodium measurement (moles/volume)Ordered By: Billy Eaton on 10-16-2021 Sodium [Moles/Vol]136 mmol/E394-572FexcxiyywGeorgetown Behavioral Hospitalerum or plasma total bilirubin measurement (mass/volume)Ordered By: Billy Eaton on 24-39-8801Dnnigwyns [Mass/Vol]0.2 mg/dL0.3-1.2FPremier Health Miami Valley Hospital Southerum or plasma total carbon dioxide measurement (moles/volume) Ordered By: Billy Eaton on 67-30-7155SV7 [Moles/Vol]20.9 mmol/L 22.0-30.0[facility] Hospitalerum or plasma urea nitrogen measurement (mass/volume)Ordered By: Billy Eaton on 04-64-9322Zvcj nitrogen [Mass/Vol]5 mg/dL9-23C[facility] ClinicComplete Blood Count with Auto Diffon 49-85-8704Gztxppcxd (Bld) [#/Vol]0.05 10*3/uLNormal 0.00-0.20NoFirelands Regional Medical Center South CampusComment on above:Performed By: #### VITD, CBCAD, CMP, LIPD #### [facility] [address], [place] [id number]/100 WBC (Bld)0.9 %NormalNoSelect Medical [facility] [place] SpecialistComment on above:Performed By: #### VITD, CBCAD, CMP, LIPD #### [facility] [address], [place] [id number] (Bld) [#/Vol]0.20 10*3/uLNormal0.02-0.50NortMetroHealth [facility] SpecialistComment on above:Performed By: #### VITD, CBCAD, CMP, LIPD #### [facility] [address], [place] [id number]/100 WBC (Bld)3.5 %NormalNortMetroHealth [facility] SpecialistComment on above:Performed By: #### VITD, CBCAD, CMP, LIPD #### [facility] [address], [place] [id number] distribution width (RBC) [Ratio]14.3 %Normal 11.0-15.0[facility] SpecialistComment on above:Performed By: #### VITD, CBCAD, CMP, LIPD #### [facility] [address], [place] [id number] (Bld) [Volume fraction]39.7 %Qgdndl38.0-47.0 [facility] SpecialistComment on above:Performed By: #### VITD, CBCAD, CMP, LIPD #### [facility] [address], [place] [id number] (Bld) [Mass/Vol]12.7 g/mVZtilwb16.6-15.5[facility] SpecialistComment on above:Performed By: #### VITD, CBCAD, CMP, LIPD #### [facility] [address], [place] [id number] (Bld) [#/Vol]2.8 10*3/uLNormal0.9-3.9[facility] SpecialistComment on above:Performed By: #### VITD, CBCAD, CMP, LIPD #### [facility] [address], [place] [id number]/100 WBC (Bld)49.0 %NormalUniversity Hospitals Ahuja Medical Center SpecialistComment on above:Performed By: #### VITD, CBCAD, CMP, LIPD #### [facility] [address], [place] [id number] (RBC) [Entitic mass]26.2 pgLow27.0-33.0[facility] SpecialistComment on above:Performed By: #### VITD, CBCAD, CMP, LIPD #### [facility] [address], [place] [id number] (RBC) [Mass/Vol]32.0 g/wHWgkrrh61.0-36.0[facility] SpecialistComment on above:Performed By: #### VITD, CBCAD, CMP, LIPD #### [facility] [address], [place] [id number] (RBC) [Entitic vol]82 iHRmehxh57-403Ksnodawo [facility] SpecialistComment on above:Performed By: #### VITD, CBCAD, CMP, LIPD #### [facility] [address], [place] [id number] (Bld) [#/Vol]0.5 10*3/uLNormal0.2-0.9NortMetroHealth [facility] SpecialistComment on above:Performed By: #### VITD, CBCAD, CMP, LIPD #### [facility] [address], [place] [id number]/100 WBC (Bld)9.2 %NormalNoSelect Medical [facility] SpecialistComment on above:Performed By: #### VITD, CBCAD, CMP, LIPD #### [facility] [address], [place] [id number] (Bld) [#/Vol]2.1 10*3/uLNormal1.5-7.8NoSelect Medical [facility] [place] SpecialistComment on above:Performed By: #### VITD, CBCAD, CMP, LIPD #### [facility] [address], [place] [id number]/100 WBC (Bld)37.2 %NormalNoSelect Medical [facility] [place] SpecialistComment on above:Performed By: #### VITD, CBCAD, CMP, LIPD #### [facility] [address], [place] [id number] mean volume (Bld) [Entitic vol]10.40 fLNormal 7.50-12.50NoSelect [facility] [place] SpecialistComment on above:Performed By: #### VITD, CBCAD, CMP, LIPD #### [facility] [address], [place] [id number] (Bld) [#/Vol]378 10*3/qQEtbgdc519-478Dqjhsnoa [facility] SpecialistComment on above:Performed By: #### VITD, CBCAD, CMP, LIPD #### [facility] [address], [place] [id number] (Bld) [#/Vol]4.85 10*6/uLNormal3.90-5.20NoSelect [facility] SpecialistComment on above:Performed By: #### VITD, CBCAD, CMP, LIPD #### [facility] [address], [place] [id number]-OI80.8 bEMywzgc78.0-50.0NoSelect [facility] Specialist Comment on above:Performed By: #### VITD, CBCAD, CMP, LIPD #### [facility] [address], [place] [id number] (Bld) [#/Vol]5.7 10*3/uLNormal3.8-11.0NoSelect [facility] SpecialistComment on above:Performed By: #### VITD, CBCAD, CMP, LIPD #### [facility] [address], [place] [id number] Metabolic Panelon 72-26-4794Wyyxkbe [Mass/Vol] 4.4 g/dLNormal3.6-5.1NorthOhioHealth [facility]in [facility] SpecialistComment on above:Performed By: #### VITD, CBCAD, CMP, LIPD #### [facility] [address], [place] [id number]/Globulin [Mass ratio]1.5 {ratio}Normal1.0-2.5NoSelect [facility] [place] SpecialistComment on above:Performed By: #### VITD, CBCAD, CMP, LIPD #### [facility] [address], [place] [id number] [Catalytic activity/Vol]114 U/WTydfax84-736Diwkdqwc [facility] SpecialistComment on above:Performed By: #### VITD, CBCAD, CMP, LIPD #### [facility] [address], [place] [id number] [Catalytic activity/Vol]32 U/LNormal6-33Nortriverview psychiatric center [facility] SpecialistComment on above:Result Comment: 03/08/2021 Female reference range changed.Performed By: #### VITD, CBCAD, CMP, LIPD #### [facility] [address] [place], [place] [id number] gap [Moles/Vol]19 mmol/KWmcxpj25-61Ejxyqczk [facility] SpecialistComment on above:Result Comment: Effective 04/13/2019 reference range changed.Performed By: #### VITD, CBCAD, CMP, LIPD #### [facility] [address] [place], [place] [id number] [Catalytic activity/Vol]22 U/LNormal9-34NoSelect [facility] [place] SpecialistComment on above:Performed By: #### VITD, CBCAD, CMP, LIPD #### [facility] [address] [place], [place] [id number] [Mass/Vol]0.31 mg/dLNormal0.30-1.20NoSelect [facility] [place] SpecialistComment on above:Performed By: #### VITD, CBCAD, CMP, LIPD #### [facility] [address] [place], [place] [id number]/CREA13 RatioNormal6-22NoSelect [facility] Specialist Comment on above:Performed By: #### VITD, CBCAD, CMP, LIPD #### [facility] [address] [place] [id number] [Mass/Vol]9.6 mg/dLNormal8.6-10.2NortherOhioHealth Pickerington [facility] SpecialistComment on above:Performed By: #### VITD, CBCAD, CMP, LIPD #### [facility] [address] [place], [place] [id number] [Moles/Vol]104 mmol/OLxfnhb43-870Nwwzwesu [facility] SpecialistComment on above:Performed By: #### VITD, CBCAD, CMP, LIPD #### [facility] [address] [place], [place] [id number] [Moles/Vol]18 mmol/UCta94-45AzbdxcieSelect Medical [facility] SpecialistComment on above:Performed By: #### VITD, CBCAD, CMP, LIPD #### [facility] [address], [place] [id number] [Mass/Vol]0.9 mg/dLNormal0.6-1.4[facility] SpecialistComment on above:Performed By: #### VITD, CBCAD, CMP, LIPD #### [facility] [address], [place] [id number] mL/min/1.91g6Pdokwp>60NortMetroHealth [facility] SpecialistComment on above:Performed By: #### VITD, CBCAD, CMP, LIPD #### [facility] [address], [place] [id number] mL/min/1.97o6Pybqiz>60NortMetroHealth [facility] SpecialistComment on above:Performed By: #### VITD, CBCAD, CMP, LIPD #### [facility] [address], [place] [id number] (S) [Mass/Vol]2.9 g/dLNormal1.9-3.7NortMetroHealth [facility] SpecialistComment on above:Performed By: #### VITD, CBCAD, CMP, LIPD #### [facility] [address], [place] [id number] [Mass/Vol]98 mg/gTZdklyc81-60Afsjqyoj [facility] SpecialistComment on above:Result Comment: For FASTING Glucose --- ADA reference ranges: Normal 65-99 mg/dl Prediabetes 100-125 Diabetes >/= 126Performed By: #### VITD, CBCAD, CMP, LIPD #### [facility] [address], [place] [id number] [Moles/Vol]4.3 mmol/LNormal3.5-5.5NoSelect [facility] SpecialistComment on above:Performed By: #### VITD, CBCAD, CMP, LIPD #### [facility] [address], [place] [id number] [Mass/Vol]7.3 g/dLNormal6.1-8.1NortherOhioHealth Pickerington Methodist [facility] SpecialistComment on above:Performed By: #### VITD, CBCAD, CMP, LIPD #### [facility] [address], [place] [id number] [Moles/Vol]137 mmol/SJywlfp934-193Leuujput [facility] SpecialistComment on above:Performed By: #### VITD, CBCAD, CMP, LIPD #### [facility] [address], [place] [id number] nitrogen [Mass/Vol]11 mg/dLNormal7-25NoSelect [facility] [place] SpecialistComment on above:Performed By: #### VITD, CBCAD, CMP, LIPD #### [facility] [address], [place] [id number] A1Con 43-37-1715QGH25.67NormalNoSelect [facility] SpecialistComment on above:Performed By: #### A1C #### [facility] [address], [place] [id number] (Bld) [Mass fraction]5.1 %Normal4.0-6.0NoSelect [facility] [place] SpecialistComment on above:Performed By: #### A1C #### [facility] [address], [place] [id number] Panelon 32-77-5747Maoxrzhqcrd [Mass/Vol]242 mg/dLHigh 125-200NoSelect [facility] SpecialistComment on above:Result Comment: Low risk < 200mg/dL Borderline risk 201-239 mg/dl High risk > or equal to 240Performed By: #### VITD, CBCAD, CMP, LIPD #### [facility] [address], [place] [id number] in HDL [Mass/Vol]44 mg/dLNormal>40NoSelect [facility] [place] SpecialistComment on above:Result Comment: High Cardiovascular Risk HDL <40 mg/dL Low Cardiovascular Risk HDL > or equal to 60 mg/dlPerformed By: #### VITD, CBCAD, CMP, LIPD #### [facility] [address], [place] [id number] in LDL [Mass/Vol]160 mg/dLNoSt. Anthony's Hospital SpecialistComment on above:Result Comment: LDL ATP III CLASSIFICATION LDL less than 100 mg/dl Optimal LDL 100-129 mg/dl Near or above optimal LDL 130-159 Borderline high LDL 160-189 High LDL greater than 189 mg/dl Very HighPerformed By: #### VITD, CBCAD, CMP, LIPD #### [facility] [address], [place] [id number] in VLDL [Mass/Vol]38 mg/dLNoSt. Anthony's Hospital SpecialistComment on above:Performed By: #### VITD, CBCAD, CMP, LIPD #### [facility] [address], [place] [id number].total/Cholesterol in HDL [Mass ratio]6 {ratio} NormalUniversity Hospitals [facility] SpecialistComment on above:Performed By: #### VITD, CBCAD, CMP, LIPD #### [facility] [address], [place] [id number] [Mass/Vol]188 mg/hFTllg08-895Mrtgarlw [facility] SpecialistComment on above:Result Comment: TRIG ATPIII CLASSIFICATIONS TRIG less than 150 mg/dl Normal TRIG 150-199 mg/dl Borderline High TRIG 200-500 mg/dl High TRIG greather than 500 mg/dl Very HighPerformed By: #### VITD, CBCAD, CMP, LIPD #### [facility] [address], [place] [id number] - CULTURE,URINE,ROUTINEon 41-01-6765KKNMUFN, URINE, ROUTINE SEE NOTENoSt. Anthony's Hospital SpecialistComment on above:Order Comment: [facility] Testing performed at: QPT, [facility], [address], [address] [place] [address], [place], [address], Criminalist Technician: Kwaku Naylor MD [facility] Collection Date/Time: [id number] [facility] Results Received Date/Time: [facility] Reported Date/Time: [id number] Comment: CULTURE, URINE, ROUTINE Micro Number: [id number] Test Status: Final Specimen Source: Urine Specimen Quality: Adequate Result: Mixed genital ed isolated. These superficial bacteria are not indicative of a urinary tract infection. No further organism identification is warranted on this specimen. If clinically indicated, recollect clean-catch, mid-stream urine and transfer immediately to Urine Culture Transport Tube.Performed By: #### 6304R, [id number] #### [facility] Default [address] [place], [place] [address]F - TESTOSTERONE TOTAL LC/MS/MSon 54-29-8198ARYQERYLSZJB, TOTAL, MS21 ng/dLNormal2-45Northern Backus HospitalComment on above:Order Comment: [facility] Testing performed at: [facility], [email or web address], [address], [place], [place], , Criminalist Technician: Cheikh Gan M.D.,PhD [facility] Collection Date/Time: [id number] [facility] Results Received Date/Time: [id number] [facility] Reported Date/Time: [id number] Comment: For additional information, please refer to http://education.Mertado/faq/ VoccsEofdnetiksnxKPNKWTPKW198 (This link is being provided for informational/ educational purposes only.) This test was developed and its analytical performance characteristics have been determined by [employer] [place], [place]. It has not been cleared or approved by the U.S. Food and Drug Administration. This assay has been validated pursuant to the CLIA regulations and is used for clinical purposes.Performed By: #### 6304R, 69029X #### [facility] [address] [place], [place] [address]Duutxxp D 25-OHon 89-49-0684EGU D 25 OH23 ng/mlLow>29Northern Backus HospitalComment on above:Result Comment: Vitamin D Status Deficiency <20 ng/mL Insufficiency 20-29 ng/mL Optimal 30-100 ng/mL Possible Toxicity >=150 ng/mLPerformed By: #### VITD, CBCAD, CMP, LIPD #### [facility] [address] [facility]eneDuke Regional HospitalYDENESHKORO, [place] [address]Qdlztuph Therapy Noteon 13-27-6936Scblraku Therapy Note [id number]#1.00[facility] Consent Formson 91-01-6164Zxufaem Forms [id number]#1.00[facility] Provider Orderson 33-52-4598Uaadjspy Orders [id number]#1.00[facility] Coding Summaryon 37-37-6255Iwksdl SummaryHTMLBase 64 MvhnijqrBXs6zGa+PGhlYWQ+FJ0CPKLwT74ycTVqgZ7IW1iFNM3HLXNKQWIKWC8QRU5qrMJ7JRllF7Tw biAv [file] IHN (more content not included)...[facility] HospitalProvider Orderson 80-93-1334Byrktbct [id number]#1.00OTGTIFF [facility] SystemProvider Orderson 19-23-8421Qalhfmpq Orders [id number]#1.00OTGTIFFUniversity Hospitals Health System Vital Signs Date TimeVital SignValuePerforming CajhymnpfMwueptfb75-72-8437 14:13-0400 Diastolic blood mm[Hg]LiviaJillian Mulugeta Evangelistahalie DO Work Phone: [facility]10-08-2025 14:13-0400 Heart rate86 /DavidaJillian Mulugeta James DO Work Phone: [facility]10-08-2025 14:13-0400 Systolic blood gtcsimnc476 mm[Hg]Janneth Evangelistahalie DO Work Phone: [facility]10-08-2025 13:24-0400 Body ajvynx727.1 cmG. Mulugeta Ramirez DO Work Phone: [phone] [place], [place] 6007410-08-2025 13:24-0400 Body mass index (BMI) [Ratio]36.1 kg/m2G. Mulugeta Ramirez DO Work Phone: [phone])[address] [place], [place] 6007410-08-2025 13:24-0400 Body sqytmt85.42 kgG. Mulugeta Ramirez DO Work Phone: [phone])[address] [place], [place] 6007410-08-2025 13:24-0400 Respiratory rate18 /Davida. Mulugeta Ramirez DO Work Phone: [phone])[address] [place], [place] 6007410-08-2025 13:24-0400 SaO2% (BldA) [Mass fraction]98 %G. Mulugeta Ramirez DO Work Phone: [phone])[address] [place], [place] 6007410-02-2025 14:49-0400 Body veycsu213.1 cmG. Mulugeta Ramirez DO Work Phone: [phone] [place], [place] 6007410-02-2025 14:49-0400 Body mass index (BMI) [Ratio]36.2 kg/m2G. Mulugeta Ramirez DO Work Phone: [phone])[address] [place], [place] 6007410-02-2025 14:49-0400 Body oyciaz51.7 kgG. Mulugeta Ramirez DO Work Phone: 1(739)[address] [place], [place] 6007406-25-2025 16:07-0400 Body kqpkri735.1 cmG. Mulugeta Ramirez DO Work Phone: 1(762)[address] [place], [place] 6007406-25-2025 16:07-0400 Body mass index (BMI) [Ratio]36.8 kg/m2G. Mulugeta Ramirez DO Work Phone: 1(818)[address] [place], [place] 6007406-25-2025 16:07-0400 Body .24 kgG. Mulugeta Ramirez DO Work Phone: 1(947)[address] [place], [place] 6007406-25-2025 16:07-0400 Diastolic blood ornejmoe59 mm[Hg]G. Mulugeta Ramirez DO Work Phone: [phone])[address] [place], [place] 6007406-25-2025 16:07-0400 Heart rate87 /Davida. Mulugeta Ramirez DO Work Phone: [phone])[address] [place], [place] 6007406-25-2025 16:07-0400 Respiratory rate16 /Davida. Mulugeta Ramirez DO Work Phone: [phone])[address] [place], [place] 6007406-25-2025 16:07-0400 SaO2% (BldA) [Mass fraction]98 %Janneth Ramirez DO Work Phone: [phone])[address] [place], [place] 6007406-25-2025 16:07-0400 Systolic blood nkcvhipf924 mm[Hg]Janneth Ramirez DO Work Phone: 1(842)[address] [place], [place] 6007405-11-2025 16:26-0400 Body jlfmap524.1 cmG. Mulugeta Ramirez DO Work Phone: 1(615)[address] [place], [place] 6007405-11-2025 16:26-0400 Body mqpkizynioz98.2 [degF]Janneth Ramirez DO Work Phone: [phone])[address] [place], [place] 6007405-11-2025 16:26-0400 Body lnsanl43.6 kgG. Mulugeta Ramirez DO Work Phone: 1(299)[address] [place], [place] 6007405-11-2025 16:26-0400 Diastolic blood radptmms47 mm[Hg]Janneth Ramirez DO Work Phone: 1(779)[address] [place], [place] 6007405-11-2025 16:26-0400 Heart rate75 /Davida. Mulugeta Ramirez DO Work Phone: 1(624)[address] [place], [place] 6007405-11-2025 16:26-0400 Respiratory rate24 /Daivda. Mulugeta Ramirez DO Work Phone: 1(068)[address] [place], [place] 6007405-11-2025 16:26-0400 SaO2% (BldA) [Mass fraction]97 %Janneth Ramirez DO Work Phone: [phone])[address] [place], [place] 6007405-11-2025 16:26-0400 Systolic blood qekutdli283 mm[Hg]Janneth Ramirez DO Work Phone: 1(836)[address] [place], [place] 6007401-21-2025 11:50-0500 Diastolic blood utmnsfta14 mm[Hg]Janneth Ramirez DO Work Phone: 1(912)[address] [place], [place] 6007401-21-2025 11:50-0500 Heart rate69 /Davida. Mulugeta Ramirez DO Work Phone: 1(436)[address] [place], [place] 6007401-21-2025 11:50-0500 Respiratory rate16 /Davida. Mulugeta Ramirez DO Work Phone: [phone])[address] [place], [place] 6007401-21-2025 11:50-0500 SaO2% (BldA) [Mass fraction]95 %Janneth Ramirez DO Work Phone: [phone])[address] [place], [place] 6007401-21-2025 11:50-0500 Systolic blood rvzrmgnu921 mm[Hg]Janneth Ramirez DO Work Phone: 1(534)[address] [place], [place] 6007401-21-2025 10:20-0500 Body neqtmqpquqo16.7 [degF]Janneth Ramirez DO Work Phone: [phone])[address] [place], [place] 6007401-21-2025 10:20-0500 Inhaled oxygen flow rate8 L/Davida. Mulugeta Ramirez DO Work Phone: 1(938)[address] [place], [place] 6007401-21-2025 07:21-0500 Body yuewta602.1 cmG. Mulugeta Ramirez DO Work Phone: 1(121)[address] [place], [place] 6007401-21-2025 07:21-0500 Body eckuvm58.79 kgG. Mulugeta Ramirez DO Work Phone: 1(629)[address] [place], [place] 6007412-12-2024 11:21-0500 Body ilxkqp376.1 cmG. Mulugeta Ramirez DO Work Phone: 1(905)[address] [place], [place] 6007412-12-2024 11:21-0500 Body .9 [degF]Janneth Ramirez DO Work Phone: 1(156)[address] [place], [place] 6007412-12-2024 11:21-0500 Body eiqmcf47 kgGJillian Ramirez DO Work Phone: 1(755)[address] [place], [place] 6007412-12-2024 11:21-0500 Diastolic blood lwyxqqxc35 mm[Hg]Janneth Ramirez DO Work Phone: 1(791)[address] [place], [place] 6007412-12-2024 11:21-0500 Heart rate75 /DavidaJillian Ramirez DO Work Phone: 1(761)[address] [place], [place] 6007412-12-2024 11:21-0500 SaO2% (BldA) [Mass fraction]96 %Janneth Ramirez DO Work Phone: 1(931)[address] [place], [place] 6007412-12-2024 11:21-0500 Systolic blood sbqownkp417 mm[Hg]Janneth Ramirez DO Work Phone: 1(818)[address] [place], [place] 6007410-13-2024 18:29-0400 Diastolic blood vrfaitod01 mm[Hg]DO Janneth Ramirez Work Phone: 1(491)[address] [place], [place] 6007410-13-2024 18:29-0400 Heart rate68 /minDO Janneth Ramirez Work Phone: 1(456)[address] [place], [place] 6007410-13-2024 18:29-0400 Respiratory rate16 /minDO Janneth Ramirez Work Phone: 1(130)[address] [place], [place] 6007410-13-2024 18:29-0400 SaO2% (BldA) [Mass fraction]99 %DO Janneth Ramirez Work Phone: 1(458)[address] [place], [place] 6007410-13-2024 18:29-0400 Systolic blood fmzbaklv369 mm[Hg]DO Janneth Ramirez Work Phone: 1(635)[address] [place], [place] 6007410-13-2024 16:11-0400 Body ecsory133.37 cmDO Janneth Ramirez Work Phone: 1(355)[address] [place], [place] 6007410-13-2024 16:11-0400 Body xqpcualqrxj27.1 [degF]DO Janneth Ramirez Work Phone: 1(618)[address] [place], [place] 6007410-13-2024 16:11-0400 Body kgDO Janneth Ramirez Work Phone: 1(670)[address] [place], [place] 6007405-25-2024 12:24-0400 Body jbmiby813.37 cmDO Janneth Ramirez Work Phone: 1(766)[address] [place], [place] 6007405-25-2024 12:24-0400 Body atuyxmafkty43.5 [degF]DO Janneth Ramirez Work Phone: 1(853)[address] [place], [place] 6007405-25-2024 12:24-0400 Body ovjcey951 kgDO Janneth Ramirez Work Phone: 1(015)[address] [place], [place] 6007405-25-2024 12:24-0400 Diastolic blood hhhmdowz40 mm[Hg]DO Janneth Ramirez Work Phone: 1(262)[address] [place], [place] 6007405-25-2024 12:24-0400 Heart rate73 /minDO Janneth Ramirez Work Phone: 1(098)[address] [place], [place] 6007405-25-2024 12:24-0400 Respiratory rate17 /minDO Janneth Ramirez Work Phone: 1(158)[address] [place], [place] 6007405-25-2024 12:24-0400 SaO2% (BldA) [Mass fraction]96 %DO Janneth Ramirez Work Phone: 1(633)[address] [place], [place] 6007405-25-2024 12:24-0400 Systolic blood gonlyyva600 mm[Hg]DO Janneth Ramirez Work Phone: 1(924)[address] [place], [place] 6007410-31-2022 19:35-0400 Body ohianniuuze58.9 [degF]DO Janneth Ramirez Work Phone: 1(555)[address] [place], [place] 6007410-31-2022 19:35-0400 Diastolic blood vjigdott10 mm[Hg]DO Janneth Ramirez Work Phone: 1(444)[address] [place], [place] 6007410-31-2022 19:35-0400 Heart ezxp419 /minDO Janneth Ramirez Work Phone: [facility]10-31-2022 19:35-0400 Respiratory rate18 /minDO Janneth Ramirez Work Phone: [facility]10-31-2022 19:35-0400 SaO2% (BldA) [Mass fraction]96 %DO Janneth Ramirez Work Phone: [facility]10-31-2022 19:35-0400 Systolic blood pyzidkcd136 mm[Hg]DO Janneth Ramirez Work Phone: [phone] [place] [address] Encounters Encounter DateEncounter TypeCare ProviderFacilityStart: 17-09-2599urvnimzwbz Jacklyn TannaFacility:EU [place]uskyStart: 01-20-2025 End: 40-73-7179msqkqouwukYOSEDOJBZ H SMITHNot AvailableStart: 01-14-2025 End: 62-63-6864igrxhxzdewDjgvmw TannaFacility:EU [place]kyStart: 01-14-2025 End: 85-67-6221Pjouqtl encounter procedureJacklyn Rivera [facility] Start: 01-13-2025 End: 56-05-2598qytvoxbokfW. Mulugeta Ramirez DO Work Phone: [facility] Work Phone: Start: 01-13-2025 End: 95-92-5670Uocmmex encounter procedureSyelitza Delatorre OBRY-BZF-A-[facility] Helen Work Phone: Start: 01-07-2025 End: 98-87-8769arexiwlsdcJ. Mulugeta Ramirez DO Work Phone: [facility] Work Phone: Start: 01-07-2025 End: 24-47-0260Alaatfm encounter procedureTheo Cerna MD-[facility] Work Phone: start: 01-06-2025 End: 49-58-0337gurcebdmtgWTLAEI R KAFTANNot AvailableStart: 66-94-5874Qliqujgfrw Chanda GAXIOLA CredibleStart: 26-24-6203pjiqzvrkbo Billy EatonFacilcleveland clinic union hospital:[facility] Hospitaltart: 12-24-2024 End: 00-33-1936uhksaiwlvzLDNJTZ P JONESNot AvailableStart: 10-28-2024 End: 63-90-0764Mgeiiys encounter procedureSyelitza Tej Cricket ASHFORDN-FNP-C-MRI [facility] [place] Work Phone: Start: 10-28-2024 End: 29-15-9633vkhtgzzwskI. Mulugeta Evangelistaelizabethnahomy DO Work Phone: [facility] Work Phone: Start: 03-69-5216Nsg-patient / Non-visitTiffany [facility] Neurology Work Phone: Start: 09-30-2024 End: 27-54-3188kcejnbbalwP. Mulugeta Ramirez DO Work Phone: [facility] Work Phone: Start: 09-30-2024 End: 84-90-2271Ozxxrct encounter procedureSyelitza Tej Cricket OWENS-FNP-C-[facility] Helen Work Phone: Start: 02-62-6572Wjewjdcgqk Chanda GAXIOLA CredibleStart: 09-10-2024 End: 28-43-3088jwgzdeznywVUSNMPB R LACONISNot AvailableStart: 09-03-2024 End: 46-99-7892agiacbmodsLPQEIYRK E PERRYFacility:EU [place]vueStart: 09-03-2024 End: 73-81-8989Zfpuhjn encounter procedureJENNIFER E GILDA [facility] Ludwig start: 09-02-2024 End: 99-97-3607fgmcdazswuSSKXMB L HOLBROOKNot AvailableStart: 08-26-2024 End: 92-87-2647ufonqoswwnGPGNILM G TESMONDNot AvailableStart: 08-26-2024 End: 30-09-7853mtwrougmhuKCADXB Dale SUKUMARFTANNot AvailableStart: 08-16-2024 End: 86-10-3348Gcxjfcftd department patient visitG. Mulugeta Ramirez DO Work Phone: [facility]-Emergency Room Work Phone: Start: 45-13-1650Rzgeokfnhk RecurringG. Mulugeta Ramirez DO Work Phone: [facility] CredibleStart: 07-30-2024 End: 24-37-1991tgiqujjpqcFSIBH CARROLLNot AvailableStart: 06-25-2024 End: 74-14-1974kohiureaknOYIYL D CARROLLFacility:EU [place]vueStart: 06-18-2024 End: 76-27-3612riupcwiozhXOSHG CARROLLFacility:EU [place]vueStart: 06-11-2024 End: 31-90-7186efiwimkrfcDXKTNKYMEDZ HASSETTNot AvailableStart: 05-28-2024 Registered RecurringG. Mulugeta Ramirez DO Work Phone: [facility] CredibleStart: 37-37-8971tbcthernafUhdzrh TannaFacility:EU [place]Start: 05-13-2024 End: 57-14-1685qugwhbhexhAMGUXKP H ITROMÁNNot AvailableStart: 04-28-2024 End: 95-38-1976Xwwckkhlb to same day surgery centerG. Mulugeta Ramirez DO Work Phone: [facility]-Surgery Center Main CampusStart: 04-28-2024 End: 30-21-4121qzcrfyllvaD. Mulugeta Ramirez DO Work Phone: [facility] Work Phone: Start: 01-71-9573Ivocvfcnnx RecurringG. Mulugeta Ramirez DO Work Phone: [facility] CredibleStart: 04-03-2024 End: 44-91-0218swhtedhnfdE. Mulugeta Ramirez DO Work Phone: [facility] Work Phone: Start: 04-03-2024 End: 98-04-9593Ymlgxpfw ReferredG. Mulugeta Ramirez DO Work Phone: [phone] [place] [address]-Surgery Center Main CampusStart: 03-19-2024 End: 30-27-3371Supzuqph ReferredG. Mulugeta Ramirez DO Work Phone: [facility]-Pre-Surgical Testing Work Phone: Start: 03-19-2024 End: 60-71-4122swwrjcayjjAjfltwc ItzkowitzFacility:[facility] Hospitaltart: 03-11-2024 End: 05-02-1654lgwxishvrpSFJGSYS H ITROMÁNNot AvailableStart: 01-29-2024 End: 07-35-3102mpgvwqqkenABQXZF Dale Solis AvailableStart: 01-19-2024 End: 65-14-0541Nisojwljw department patient visitDO Janneth Ramirez Work Phone: [phone] [place] [address]-Emergency Room Work Phone: Start: 06-14-2459Ouqkpvwdjx Alexis Ramirez Work Phone: [phone] [place] [address] CredibleStart: 08-31-2023 End: 92-18-2794Esdrkkrmj department patient visitDO Janneth Ramirez Work Phone: [facility]-Emergency Room Work Phone: Start: 85-18-4729Ejubrdchda Alexis Ramirez Work Phone: [phone] [place] [address] CredibleStart: 12-24-2022 End: 26-66-3372auulbtttbeUS G. Robert Kaftan Work Phone: [facility] Work Phone: Start: 12-24-2022 End: 27-54-7021Kklntph encounter procedureDO Janneth Evangelistahalie Work Phone: [facility]-Physical Therapy [facility]: 02-05-2022 End: 26-02-7552Jvatkemma department patient visitDO Janneth Evangelistahalie Work Phone: [facility]-Emergency RoomStart: 01-26-2022 End: 38-56-6535spzuqiflzfLD Janneth Evangelistahalie Work Phone: [facility] Work Phone: Start: 01-26-2022 End: 72-47-8150Ouzpkji encounter procedureDO Janneth Evangelistahalie Work Phone: [facility]-Lab Main CampusStart: 11-28-2021 End: 18-92-1454Blgonvf encounter procedureDO Janneth Evangelistahalie Work Phone: [facility]-Lab Main CampusStart: 10-16-2021 End: 65-57-4321Uvkaazc encounter procedureDO Janneth Evangelistahalie Work Phone: [facility]-Lab [facility] [place] Procedures DateProcedureProcedure DetailPerforming ClinicianStart: 31-37-0862MC lumbar spine wo Zaid. Mulugeta Ramirez DO Work Phone: Start: 70-25-9215WNR of headG. Mulugeta Ramirez DO Work Phone: Start: 34-42-9289Gceyu X-ray of right handG. Mulugeta Ramirez DO Work Phone: Start: 37-10-1246Moiqidmkbuhw cholecystectomyGJillian Ramirez DO Work Phone: Start: 09-41-8805Hddrafig tomography of abdomen and pelvis with contrast Janneth Dalal James Work Phone: Start: 93-82-5226P-ray of left footDO Janneth Ramirez Work Phone: Start: 20-84-1935R-ray of left ankleDO Janneth Ramirez Work Phone: AppendectomyJENNIFER GILDA CholecystectomyJENNIFER GILDA Procedure on lower legJENNIFER GILDA Plan of Treatment DateCare ActivityDetailAuthorStart: 89-52-9301VI lumbar spine wo conMR lumbar spine wo [facility] Southtart: 48-09-8960UO Lumbar spine WO contrastGeorgetown Behavioral Hospitaltart: 78-99-6887WX Unspecified body regionGeorgetown Behavioral Hospitaltart: 65-79-6469CDM of headMR head/brain wo/w [facility]htart: 48-20-6235Oroxkqw referral [facility] Work Phone: Start: 04-28-2024 End: 59-46-3539IgvdvtdozGeorgetown Behavioral Hospitaltart: 43-72-3096Qexnucyyujmh cholecystectomyOR Cholecystectomy Laparoscopic (Not Applicable)[facility] Hospitaltart: 59-76-8668PrvmqniupC[facility] Clinic Aldolase measurementCleveland ClinicCefuroxime free [Mass/volume] in Serum or PlasmaCleveland ClinicGlucose measurement estimated from glycated hemoglobinSouthwest General Health Center Work Phone: Hemoglobin A1c/Hemoglobin.total in BloodSouthwest General Health Center Work Phone: Myoglobin [Mass/volume] in Serum or PlasmaCleveland ClinicPatient EducationFostoria City Hospital [facility]tr Work Phone: Patient referralSouthwest General Health Center Work Phone: [facility] Payers DatePayer CategoryPayerPolicy [id number] 2025Medicare [id number] 2025Medicaid [id number]-pii [id number] 2.0.1.870230.3.579.2.12050-19-8921Ekbppvc85855450 2..1.807963.3.579.2.26925-85-3217Cjzqlhd15082846 2..1.460691.3.579.2.36379-67-2142Qbnjymg72251325 2.0.1.899848.3.579.2.11631-24-0072Hgekwst85362756 2..1.272960.3.579.2.87430-79-1203Jfudoio06271290 2..1.803534.3.579.2.022831-14-0547Pavaipg94927958 2.0.1.707007.3.579.2.124510-14-8305Snrhgoo48681202 2.0.1.066292.3.579.2.984879-45-4482Eqgscjg15071014 2.0.1.034521.3.579.2.224872-11-8424Bxttowg72839233 2.840.1.513963.3.579.2.033507-08-7415Fhsisgd79079855 2.0.1.207326.3.579.2.470303-65-4397Sppdeld29108472 2.0.1.117181.3.579.2.269112-51-7398Kvkzqpi52263916 2.0.1.307096.3.579.2.782396-91-9298Orjkmrc2964150 2.0.1.113506.3.579.2.554936-94-6243Edqispn0563211 2.0.1.670558.3.579.2.503305-13-9880Boynbym7716041 2.0.1.817641.3.579.2.210298-22-3918Jyimneu9177002 2.0.1.161640.3.579.2.660442-57-2388Hwclfbh3875838 2..1.474176.3.579.2.850007-39-4677Urybkgw6189833 2.0.1.019124.3.579.2.679555-57-2704Qbqyhut7944747 2..1.448738.3.579.2.670533-01-6971Yspooux6947723 2.0.1.143270.3.579.2.933784-25-1113Rdteoet7341018 2..1.162545.3.579.2.685504-39-6008Wocpghy2522445 2.0.1.871828.3.579.2.613884-25-6405Liqtbji2211720 2..1.940[id number] 2.16.840.1.305011.3.579.2.527Pqndmpd52964990 2.16.840.1.680368.3.579.2.531 [id number] 2.16.840.1.040457.3.579.2.124Zhkbpqt60850674 2.16.840.1.109745.3.579.2.549Ibrpowl30451116 2.16.840.1.915363.3.579.2.531 Gmcyhgv85399693 2.16.840.1.047199.3.579.2.345Wecdwcg39311783 2.16.840.1.161960.3.579.2.531 Social History DateTypeDetailFacilityStart: 04-25-2021 End: 96-39-5688Qhtlsku smoking status NHISNever smoked tobacco (finding) [facility]: 80-05-3213Nhp [facility]igned At [facility]: 04-28-2024 End: 15-84-2884TjnXaidsj (finding)[facility] ClinicTobacco smoking statusNeverExec[facility] Sexual OrientationExec[facility] sex Assigned At [facility] HospitalNEGATED: Highlighted [facility] EastNEGATED: Highlighted [facility] Goals DatePatient GoalDesired Activity/State Clinical Notes 06-19-2021 to 01-14-2025 Note Date & MckdNkugQoomzkdj77-33-1346 Hospital Discharge instructions Patient Education 01/14/2025 10:53:20 Overactive Bladder, Adult Overactive Bladder, Adult Overactive bladder is a condition in which a person has a sudden and frequent need to urinate. A person might also leak urine if he or she cannot get to the bathroom fast enough (urinary incontinence). Sometimes, symptoms can interfere with work or social activities. What are the causes? Overactive bladder is associated with poor nerve signals between your bladder and your brain. Your bladder may get the signal to empty before it is full. You may also have very sensitive muscles thatmake your bladder squeeze too soon. This condition may also be caused by other factors, such as: Medical conditions: ?Urinary tract infection. ?Infection of nearby tissues. ?Prostate enlargement. ?Bladder stones, inflammation, or tumors. ?Diabetes. ?Muscle or nerve weakness, especially from these conditions: ?A spinal cord injury. ?Stroke. ?Multiple sclerosis. ?Parkinson's disease. Other causes: ?Surgery on the uterus or urethra. ?Drinking too much caffeine or alcohol. ?Certain medicines, especially those that eliminate extra fluid in the body (diuretics). ?Constipation. What increases the risk? You may be at greater risk for overactive bladder if you: Are an older adult. Smoke. Are going through menopause. Have prostate problems. Have a neurological disease, such as stroke, dementia, Parkinson's disease, or multiple sclerosis (MS). Eat or drink alcohol, spicy food, caffeine, and other things that irritate the bladder. Are overweight or obese. What are the signs or symptoms? Symptoms of this condition include a sudden, strong urge to urinate. Other symptoms include: Leaking urine. Urinating 8 or more times a day. Waking up to urinate 2 or more times overnight. How is this diagnosed? This condition may be diagnosed based on: Your symptoms and medical history. A physical exam. Blood or urine tests to check for possible causes, such as infection. You may also need to see a health care provider who specializes in urinary tract problems. This is called a urologist. How is this treated? Treatment for overactive bladder depends on the cause of your condition and whether it is mild or severe. Treatment may include: Bladder training, such as: ?Learning to control the urge to urinate by following a schedule to urinate at regular intervals. ?Doing Kegel exercises to strengthen the pelvic floor muscles that support your bladder. Special devices, such as: ?Biofeedback. This uses sensors to help you become aware of your body's signals. ?Electrical stimulation. This uses electrodes placed inside the body (implanted) or outside the body. These electrodes send gentle pulses of electricity to strengthen the nerves or muscles that control the bladder. ?Women may use a plastic device, called a pessary, that fits into the vagina and supports the bladder. Medicines, such as: ?Antibiotics to treat bladder infection. ?Antispasmodics to stop the bladder from releasing urine at the wrong time. ?Tricyclic antidepressants to relax bladder muscles. ?Injections of botulinum toxin type A directly into the bladder tissue to relax bladder muscles. Surgery, such as: ?A device may be implanted to help manage the nerve signals that control urination. ?An electrode may be implanted to stimulate electrical signals in the bladder. ?A procedure may be done to change the shape of the bladder. This is done only in very severe cases. Follow these instructions at home: Eating and drinking Make diet or lifestyle changes recommended by your health care provider. These may include: ?Drinking fluids throughout the day and not only with meals. ?Cutting down on caffeine or alcohol. ?Eating a healthy and balanced diet to prevent constipation. This may include: ?Choosing foods that are high in fiber, such as beans, whole grains, and fresh fruits and vegetables. ?Limiting foods that are high in fat and processed sugars, such as fried and sweet foods. Lifestyle Lose weight if needed. Do not use any products that contain nicotine or tobacco. These include cigarettes, chewing tobacco, and vaping devices, such as e-cigarettes. If you need help quitting, ask your health care provider. General instructions Take kycg-mjv-lwjrwju and prescription medicines only as told by your health care provider. If you were prescribed an antibiotic medicine, take it as told by your health care provider. Do notstop taking the antibiotic even if you start to feel better. Use any implants or pessary as told by your health care provider. If needed, wear pads to absorb urine leakage. Keep a log to track how much and when you drink, and when you need to urinate. This will help your health care provider monitor your condition. Keep all follow-up visits. This is important. Contact a health care provider if: You have a fever or chills. Your symptoms do not get better with treatment. Your pain and discomfort get worse. You have more frequent urges to urinate. Get help right away if: You are not able to control your bladder. Summary Overactive bladder refers to a condition in which a person has a sudden and frequent need to urinate. Several conditions may lead to an overactive bladder. Treatment for overactive bladder depends on the cause and severity of your condition. Making lifestyle changes, doing Kegel exercises, keeping a log, and taking medicines can help with this condition. This information is not intended to replace advice given to you by your health care provider. Make sure you discuss any questions you have with your health care provider. Document Revised: 12/12/2020 Document Reviewed: 12/12/2020 [employer] Patient Education 2023 [place]. Follow Up Care 01/12/2025 15:08:42 With:Jacklyn Rivera PA-C, URL Address: When: Unknown Comments:3 mos w/ P[facility] 10-09-2025 NotePatient Education Obstetrics and Gynecology Overactive Bladder, Adult Overactive bladder is a condition in which a person has a sudden and frequent need to urinate. A person might also leak urine if he or she cannot get to the bathroom fast enough (urinary incontinence). Sometimes, symptoms can interfere with work or social activities. What are the causes? Overactive bladder is associated with poor nerve signals between your bladder and your brain. Your bladder may get the signal to empty before it is full. You may also have very sensitive muscles thatmake your bladder squeeze too soon. This condition may also be caused by other factors, such as: ??? Medical conditions: ? Urinary tract infection. ? Infection of nearby tissues. ? Prostate enlargement. ? Bladder stones, inflammation, or tumors. ? Diabetes. ? Muscle or nerve weakness, especially from these conditions: ? A spinal cord injury. ? Stroke. ? Multiple sclerosis. ? Parkinson's disease. ??? Other causes: ? Surgery on the uterus or urethra. ? Drinking too much caffeine or alcohol. ? Certain medicines, especially those that eliminate extra fluid in the body (diuretics). ? Constipation. What increases the risk? You may be at greater risk for overactive bladder if you: ??? Are an older adult. ??? Smoke. ??? Are going through menopause. ??? Have prostate problems. ??? Have a neurological disease, such as stroke, dementia, Parkinson's disease, or multiple sclerosis (MS). ??? Eat or drink alcohol, spicy food, caffeine, and other things that irritate the bladder. ??? Are overweight or obese. What are the signs or symptoms? Symptoms of this condition include a sudden, strong urge to urinate. Other symptoms include: ??? Leaking urine. ??? Urinating 8 or more times a day. ??? Waking up to urinate 2 or more times overnight. How is this diagnosed? This condition may be diagnosed based on: ??? Your symptoms and medical history. ??? A physical exam. ??? Blood or urine tests to check for possible causes, such as infection. You may also need to see a health care provider who specializes in urinary tract problems. This is called a urologist. How is this treated? Treatment for overactive bladder depends on the cause of your condition and whether it is mild or severe. Treatment may include: ??? Bladder training, such as: ? Learning to control the urge to urinate by following a schedule to urinate at regular intervals. ? Doing Kegel exercises to strengthen the pelvic floor muscles that support your bladder. ??? Special devices, such as: ? Biofeedback. This uses sensors to help you become aware of your body's signals. ? Electrical stimulation. This uses electrodes placed inside the body (implanted) or outside the body. These electrodes send gentle pulses of electricity to strengthen the nerves or muscles that control the bladder. ? Women may use a plastic device, called a pessary, that fits into the vagina and supports the bladder. ??? Medicines, such as: ? Antibiotics to treat bladder infection. ? Antispasmodics to stop the bladder from releasing urine at the wrong time. ? Tricyclic antidepressants to relax bladder muscles. ? Injections of botulinum toxin type A directly into the bladder tissue to relax bladder muscles. ??? Surgery, such as: ? A device may be implanted to help manage the nerve signals that control urination. ? An electrode may be implanted to stimulate electrical signals in the bladder. ? A procedure may be done to change the shape of the bladder. This is done only in very severe cases. Follow these instructions at home: Eating and drinking ??? Make diet or lifestyle changes recommended by your health care provider. These may include: ? Drinking fluids throughout the day and not only with meals. ? Cutting down on caffeine or alcohol. ? Eating a healthy and balanced diet to prevent constipation. This may include: ? Choosing foods that are high in fiber, such as beans, whole grains, and fresh fruits and vegetables. ? Limiting foods that are high in fat and processed sugars, such as fried and sweet foods. Lifestyle ??? Lose weight if needed. ??? Do not use any products that contain nicotine or tobacco. These include cigarettes, chewing tobacco, and vaping devices, such as e-cigarettes. If you need help quitting, ask your health care provider. General instructions ??? Take ghex-fkg-yvtnlnv and prescription medicines only as told by your health care provider. ??? If you were prescribed an antibiotic medicine, take it as told by your health care provider. Donot stop taking the antibiotic even if you start to feel better. ??? Use any implants or pessary as told by your health care provider. ??? If needed, wear pads to absorb urine leakage. ??? Keep a log to track how much and when you drink, and whe (more content not included)...[facility]10-02-2025 Evaluation note* Diagnosis Onset Date Resolution Status Admit Date 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 radiculopathy acuteOctober 2024 2:42pmChronic bilateral low back pain without sciatica chronicOctober 2024 2:42pmAbnormal reflexeschronicOctober 2024 1:23pm Chronic bilateral low back pain without sciaticachronicOctober 2024 1:23pm History of developmental delaychronicOctober 2024 1:23pmLumbosacral radiculopathychronicOctober 2024 1:23pmMuscle weaknesschronicOctober 2024 1:23pmParesthesiaschronicOctober 2024 1:23pmSpastic cerebral palsy chronicOctober 2024 1:23pmUrinary incontinencechronicOctober 2024 1:23pm [facility] Work Phone: 1(548) 317-188206-25-2025 Evaluation note* Diagnosis Onset Date Resolution Status Admit Date Abnormal reflexes chronicJune 2024 3:59pmChronic bilateral low back pain without sciatica chronicJune 2024 3:59pmHistory of developmental delaychronicJune 2024 3:59pmLumbosacral radiculopathychronicJune 2024 3:59pmMuscle weakness chronicJune 2024 3:59pmParesthesiaschronicJune 2024 3:59pmSpastic cerebral palsychronicJune 2024 3:59pmUrinary incontinencechronicJune 2024 3:59pm [facility] Work Phone: 1(109) 657-568403-23-2025 NotePatient Education Obstetrics and Gynecology Overactive Bladder, Adult Overactive bladder is a condition in which a person has a sudden and frequent need to urinate. A person might also leak urine if he or she cannot get to the bathroom fast enough (urinary incontinence). Sometimes, symptoms can interfere with work or social activities. What are the causes? Overactive bladder is associated with poor nerve signals between your bladder and your brain. Your bladder may get the signal to empty before it is full. You may also have very sensitive muscles thatmake your bladder squeeze too soon. This condition may also be caused by other factors, such as: ??? Medical conditions: ? Urinary tract infection. ? Infection of nearby tissues. ? Prostate enlargement. ? Bladder stones, inflammation, or tumors. ? Diabetes. ? Muscle or nerve weakness, especially from these conditions: ? A spinal cord injury. ? Stroke. ? Multiple sclerosis. ? Parkinson's disease. ??? Other causes: ? Surgery on the uterus or urethra. ? Drinking too much caffeine or alcohol. ? Certain medicines, especially those that eliminate extra fluid in the body (diuretics). ? Constipation. What increases the risk? You may be at greater risk for overactive bladder if you: ??? Are an older adult. ??? Smoke. ??? Are going through menopause. ??? Have prostate problems. ??? Have a neurological disease, such as stroke, dementia, Parkinson's disease, or multiple sclerosis (MS). ??? Eat or drink alcohol, spicy food, caffeine, and other things that irritate the bladder. ??? Are overweight or obese. What are the signs or symptoms? Symptoms of this condition include a sudden, strong urge to urinate. Other symptoms include: ??? Leaking urine. ??? Urinating 8 or more times a day. ??? Waking up to urinate 2 or more times overnight. How is this diagnosed? This condition may be diagnosed based on: ??? Your symptoms and medical history. ??? A physical exam. ??? Blood or urine tests to check for possible causes, such as infection. You may also need to see a health care provider who specializes in urinary tract problems. This is called a urologist. How is this treated? Treatment for overactive bladder depends on the cause of your condition and whether it is mild or severe. Treatment may include: ??? Bladder training, such as: ? Learning to control the urge to urinate by following a schedule to urinate at regular intervals. ? Doing Kegel exercises to strengthen the pelvic floor muscles that support your bladder. ??? Special devices, such as: ? Biofeedback. This uses sensors to help you become aware of your body's signals. ? Electrical stimulation. This uses electrodes placed inside the body (implanted) or outside the body. These electrodes send gentle pulses of electricity to strengthen the nerves or muscles that control the bladder. ? Women may use a plastic device, called a pessary, that fits into the vagina and supports the bladder. ??? Medicines, such as: ? Antibiotics to treat bladder infection. ? Antispasmodics to stop the bladder from releasing urine at the wrong time. ? Tricyclic antidepressants to relax bladder muscles. ? Injections of botulinum toxin type A directly into the bladder tissue to relax bladder muscles. ??? Surgery, such as: ? A device may be implanted to help manage the nerve signals that control urination. ? An electrode may be implanted to stimulate electrical signals in the bladder. ? A procedure may be done to change the shape of the bladder. This is done only in very severe cases. Follow these instructions at home: Eating and drinking ??? Make diet or lifestyle changes recommended by your health care provider. These may include: ? Drinking fluids throughout the day and not only with meals. ? Cutting down on caffeine or alcohol. ? Eating a healthy and balanced diet to prevent constipation. This may include: ? Choosing foods that are high in fiber, such as beans, whole grains, and fresh fruits and vegetables. ? Limiting foods that are high in fat and processed sugars, such as fried and sweet foods. Lifestyle ??? Lose weight if needed. ??? Do not use any products that contain nicotine or tobacco. These include cigarettes, chewing tobacco, and vaping devices, such as e-cigarettes. If you need help quitting, ask your health care provider. General instructions ??? Take aymz-clc-luaaewh and prescription medicines only as told by your health care provider. ??? If you were prescribed an antibiotic medicine, take it as told by your health care provider. Donot stop taking the antibiotic even if you start to feel better. ??? Use any implants or pessary as told by your health care provider. ??? If needed, wear pads to absorb urine leakage. ??? Keep a log to track how much and when you drink, and whe (more content not included)...[facility]03-14-2022 Note [id number] No data available for this section [facility] evaluation + Plan note Future Appointments Appointment Date:01/14/2025 10:30:00 AM Scheduled Provider:Jacklyn Rivera PA-C Location:[facility] Appointment Type:URO Acute Visit [facility] evaluation + Plan note Future Appointments Appointment Date:04/22/2025 10:20:00 AM Scheduled Provider:Jacklyn Rivera PA-C Location:[facility] Appointment Type:URO Office Visit [facility] Evaluation noteNo assessment information available [facility] Work Phone: Evaluation note* Diagnosis Onset Date Resolution Status Admit Date 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 radiculopathy acuteOctober 2024 2:42pmChronic bilateral low back pain without sciatica chronicOctober 2024 2:42pm [facility] Work Phone: Hospital Discharge instructions Additional Instructions Return for new or worsening symptoms [facility]: Hospital Discharge instructions Additional Instructions DISCHARGE INSTRUCTIONS FOR GENERAL SURGERY YOUR ACTIVITY MAY INCLUDE: -Going up and down stairs slowly. -Walking around the house or outside if the weather is satisfactory. -Light housework or light work permitted in 2 weeks. WOUND CARE/INCISION CARE: The sutures are underneath the skin and will dissolve by themselves. The incisions are covered with surgical glue, there is no need for additional Band-Aids It is safe to get the wounds wet with soap and water in the shower, no hot tubs or tub baths. -Is it common to feel pulling or sharp sticking sensations in the area of incision, these sensations are a part of the normal healing process. -If you develop fever, increasing pain, redness, or swelling around the incision, please notify our office MEDICATION -Resume all previous medications that you were taking for problems unrelated to your surgery, unless informed otherwise. If there are any problems with this, please call the original prescribing doctor. If you have any other questions regarding medications, please call our office. -Over the counter medications such as Acetaminophen, Ibuprofen, Naproxen, and others may be used as directed for pain unless a prescription was provided.[facility] Work Phone: Hospital Discharge instructions No data available for this section [facility] progress note No data available for this section [facility] reason for referral (narrative)No reason for referral information availableC[facility] Work Phone: Summary Purpose Family History No Family History Records Found Relationship Condition Age at Onset Recorded Date/T brandi father Coronary artery disease Unknown Diabetes mellitusUnknownHypertensionUnknown Relationship Condition Age at Onset Recorded Date/T brandi father Coronary artery disease Unknown Diabetes mellitusUnknownHypertensionUnknownfamily memberMalignant neoplasm Unknownmaternal grandmotherDiabetes mellitusUnknownpaternal grandmotherMalignant neoplasmUnknown Advance Directives No Advanced Directives Records Found Advance Directive Response Recorded Date/ Time Advance Directives No May 15, 2017 11:01am Advance Directive Response Recorded Date/ Time Advance Directives No May 15, 2017 10:01am Chief Complaint and Reason for Visit Chief Complaint Z79.899 Chief Complaint Z79.899 f43.10 f41.1 z79.899 Chief Complaint f43.10 f41.1 z79.899 Z79.899 Chief Complaint f43.10 f41.1 z79.899 Z79.899 L foot injury Chief Complaint disability determina tion Chief Complaint mouth pain Chief Complaint abd pain Chief Complaint Admit Date Cholelithiasis March 19, 2024 11:13am April 16, 2024 2: 35pm symptomatic cholelithiasis April 28, 2024 6:28am Chief Complaint Admit Date Cholelithiasis March 19, 2024 11:13am Cholelithiasis April 03, 2024 10:00am symptomatic cholelithiasis April 28, 2024 6:28am May 28, 2024 10:36am Chief Complaint Admit Date August 05, 2024 10: 29am R hand injury ICO with Meijers August 16, 2024 4:21pm Chief Complaint Admit Date R hand injury ICO with Meijers August 16, 2024 4:21pm September 30, 2024 9:56 am 1 month f/u September 30, 2024 3:59 pm Chief Complaint Admit Date R hand injury ICO with Meijers August 16, 2024 4:21pm September 30, 2024 9:56 am 1 month f/u September 30, 2024 3:59 pm Amb Documentation October 27, 2024 1:18 pm M62.81 R20.2 M54.50 G89.29 M54.17 R29.2 October 28, 2024 4:49pm Reason for Visit Admit Date Abnormal reflexes September 30, 2024 3:59 pm Chronic bilateral low back pain without sciatica September 30, 2024 3:59pm History of developmental delay September 3:59pm Lumbosacral radiculopathy September 30 3:59pm Muscle weakness September 30, 2024 3:59 pm Paresthesias September 30, 2024 3:59 pm Spastic cerebral palsy September 30, 2024 3 :59pm Urinary incontinence September 30, 2024 3:5 9pm Chief Complaint Admit Date Amb Documentation October 27, 2024 1:18 pm M62.81 R20.2 M54.50 G89.29 M54.17 R29.2 October 28, 2024 4:49pm BH January 06, 2025 10 :46am Radiculopathy, lumbosacral region Octobe r 2024 2:42pm Reason for Visit Admit Date Spondylosis of lumbar region without myelopathy or radiculopathy January 07, 2025 2:42pm Chronic bilateral low back pain without sciatica January 07, 2025 2:42pm Chief Complaint Admit Date Amb Documentation October 27, 2024 1:18 pm M62.81 R20.2 M54.50 G89.29 M54.17 R29.2 October 28, 2024 4:49pm BH January 06, 2025 10 :46am Radiculopathy, lumbosacral region Octobe r 2024 2:42pm Follow up January 13, 2025 1: 23pm Reason for Visit Admit Date Spondylosis of lumbar region without myelopathy or radiculopathy January 07, 2025 2:42pm Chronic bilateral low back pain without sciatica January 07, 2025 2:42pm Abnormal reflexes January 13, 2025 1: 23pm Chronic bilateral low back pain without sciatica January 13, 2025 1:23pm History of developmental delay January 132024 1:23pm Lumbosacral radiculopathy January 13, 2 025 1:23pm Muscle weakness January 13, 2025 1: 23pm Paresthesias January 13, 2025 1: 23pm Spastic cerebral palsy January 13, 2025 1:23pm Urinary incontinence January 13, 2025 1 :23pm Additional Source Comments INFORMATION SOURCE (unrecogn ized section and content) DATE CREATED AUTHOR 08/28/2021 [facility] DATE CREATED AUTHOR AUTHOR'S ORGANIZ ATION 09/09/2021 [facility] [employer] DATE CREATED AUTHOR AUTHOR'S ORGANIZ ATION 01/10/2025 [facility] DATE CREATED AUTHOR AUTHOR'S ORGANIZ ATION 01/17/2025 [facility] DATE CREATED AUTHOR AUTHOR'S ORGANIZ ATION 01/22/2025 [facility] EPIC Care Teams (unrecognized sec tion and content) Team Status: Active Member Role Status Dates Janneth Ramirez DO Primary Care Provider Active Team Status: Active Member Role Status Dates Janneth Mulugeta EvangelistaDO halie Primary Care Provider Active Start: October 27, 2024 Earlene Villa ProviderActiveStart: October 27, 2024 Team Status: Inactive Member Role Status Dates LiviaJillian Mulugeta EvangelistaDO halie Primary Care Provider Active Start: October 28, 2024 End: October 28, 2024Samarissa Delatorre , [id number] ProviderActiveStart: October 28, 2024 End: October 28, 2024 Team Status: Active Member Role Status Dates Janneth Mulugeta DO James Primary Care Provider Active Start: January 06, 2025 Billy Eaton , CELIAttending ProviderActiveStart: January 06, 2025 Team Status: Inactive Member Role Status Dates Janneth Mulugeta DO James Primary Care Provider Active Start: January 07, 2025 End: January 07, 2025Theo Cerna MDAttending ProviderActiveStart: January 07, 2025 End: January 07, 2025 Team Status: Inactive Member Role Status Dates Janneth Mulugeta DO James Primary Care Provider Active Start: August 16, 2024 End: August 16, 2024Dane Bender ProviderActiveStart: August 16, 2024 End: August 16, 2024 Team Status: Active Member Role Status Dates LiviaJillian Mulugeta EvangelistaDO halie Primary Care Provider Active Start: September 30, 2024 Billy Eaton , CELIAttending ProviderActiveStart: September 30, 2024 Team Status: Inactive Member Role Status Dates Janneth Mulugeta DO James Primary Care Provider Active Start: September 30, 2024 End: September 30, 2024Elise Delatorre , [id number] ProviderActiveStart: September 30, 2024 End: September 30, 2024 Team Status: Active Member Role Status Dates Janneth Ramirez DO Primary Care Provider Active Start: August 05, 2024 Billy Eaton , CELIAttending ProviderActiveStart: August 05, 2024 Team Status: Inactive Member Role Status Dates Janneth Ramirez DO Primary Care Provider Active Start: March 19, 2024 End: March 19, 2024Zhao Juárez , DOAttending ProviderActiveStart: March 19, 2024 End: March 19, 2024 Team Status: Active Member Role Status Dates Janneth Ramirez DO Primary Care Provider Active Start: April 16, 2024 Billy Eaton , MDAttending ProviderActiveStart: April 16, 2024 Team Status: Inactive Member Role Status Dates Janneth Ramirez DO Primary Care Provider Active Start: April 28, 2024 End: April 28, 2024Fredmaddie Itromán , DOAttending ProviderActiveStart: April 28, 2024 End: April 28, 2024 Team Status: Active Member Role Status Dates Janneth Ramirez DO Primary Care Provider Active Start: August 07, 2023 Billy Eaton , CELIAttending ProviderActiveStart: August 07, 2023 Team Status: Inactive Member Role Status Dates Janneth Ramirez DO Primary Care Provider Active Start: August 31, 2023 End: August 31, 2023Dane Bender ProviderActiveStart: August 31, 2023 End: August 31, 2023 Team Status: Inactive Member Role Status Dates Janneth Ramirez DO Primary Care Provider Active Sonido Eaton MDAttending ProviderActive Team Status: Inactive Member Role Status Dates Janneth Ramirez DO Primary Care Provider Active Violeta Painting ProviderActive Team Status: Inactive Member Role Status Dates Janneth Ramirez DO Primary Care Provider Active Carolyn Dlae DOAttrj ProviderActive Team Status: Active Member Role Status Dates Janneth Ramirez DO Primary Care Provider Active Start: January 01, 2024 Billy Eaton , CELIAttending ProviderActiveStart: January 01, 2024 Team Status: Inactive Member Role Status Dates Janneth Ramirez DO Primary Care Provider Active Start: January 19, 2024 End: January 19, 2024Sarah Anderson ProviderActiveStart: January 19, 2024 End: January 19, 2024 Team Status: Inactive Member Role Status Dates Janneth Ramirez DO Primary Care Provider Active Start: April 03, 2024 End: April 03, 2024Zhao Juárez DOAttrj ProviderActiveStart: April 03, 2024 End: April 03, 2024 Team Status: Active Member Role Status Dates Janneth Ramirez DO Primary Care Provider Active Start: May 28, 2024 Fela Harvey ProviderActiveStart: May 28, 2024 Team Status: Inactive Member Role Status Dates Janneth Ramirez DO Primary Care Provider Active Start: January 13, 2025 End: January 13, 2025Elise Delatorre APRN-FNP-CAttending ProviderActiveStart: January 13, 2025 End: January 13, 2025 Goals (unrecognized section and content) Goals may be documented in a n alternate sectionGoals may be documented in an alternate sectionGoals may be documented in an alternate sectionGoals may be documented in an alternate sectionGoals may be documented in an alternate sectionGoals may be documented in an alternate sectionGoals may be documented in an alternate sectionGoals may be documented in an alternate section No data available for this sectionGoals may be documented in an alternate sectionGoals may be documented in an alternate sectionGoals may be documented in an alternate sectionGoals may be documented in an alternate section No data available for this section No data available for this section FOR RECORDS PERTAINING TO PATIENTS WHO ARE OR HAVE BEEN ENROLLED IN A CHEMICAL DEPENDENCY/SUBSTANCEABUSE PROGRAM, SOME INFORMATION MAY BE OMITTED. This clinical summary was aggregated from multiple sources. Caution should be exercised in using it in the provision of clinical care. This summary normalizes information from multiple sources, and as a consequence, information in this document may materially change the coding, format and clinical context of patient data. In addition, data may be omitted in some cases. CLINICAL DECISIONS SHOULD BE BASED ON THE PRIMARY CLINICAL RECORDS. [facility]. provides no warranty or guarantee of the accuracy or completeness of information in this document.
--- NOTE | 2025-01-27 15:14 | P.CN_ITS ---
Consult Note: HPI Data of Consult Patient: new to practice Consult date: 01/27/25 Requesting Physician: Lashawn Coe NP Primary Care Provider: Livia TSE Consult Narrative Reason for consult: establish care Narrative: Saida Dawn a pleasant 34 year old female presents for evaluation and management of chronic BLE pain secondary to lumbosacral radiculopathy. Pt has a longstanding hx of low back and BLE pain over the last 5+ years, recently underwent emg consistent with left S1 radiculopathy and mri of lumbar spine consistent with multilevel degenerative changes and stenosis at L5-S1. Pt has failed > 6 weeks of PT, heat, ice, tylenol, ibuprofen, baclofen. recently started on gabapentin with mild relief. denies fall/injury. 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 cc:: CC: Lashawn Coe NP Review of Systems ROS Musculoskeletal Reports: back pain and extremity pain Meds Home Medications and Allergies Allergies Allergy/AdvReac Type Severity Reaction Status Date / Time latex Allergy Unknown Unknown Verified 01/27/25 15:32 sulfamethoxazole (From Allergy Unknown Unknown Verified 01/27/25 15:32 Bactrim) trimethoprim (From Bactrim) Allergy Unknown Unknown Verified 01/27/25 15:32 Exam Constitutional Documenting provider has reviewed patient's vital signs: yes Common normals: no apparent distress, oriented x3, healthy appearing and alert General appearance: cooperative HENAR Common normals: normocephalic, hearing grossly normal bilaterally and moist oral mucous membranes Head and scalp: normocephalic Eye Common normals: PERRL Pupil: PERRL Neck & C-Spine Common normals: full ROM General: normal visual inspection Chest Common normals: inspection of chest normal Respiratory Common normals: normal respiratory effort, no retractions and no use of accessory muscles Back & Pelvis Lumbar spine/lower back: ROM limited, pain with ROM, straight leg raise positive right and straight leg raise positive left Other: decreased sensation bilateral L5/S1 strength 4/5 in BLE Neuro Common normals: oriented x3 Sensorium/orientation: alert Psych Common normals: mental status grossly normal, thought process normal, cooperative, affect normal, speech normal and activity/motor behavior normal Speech: normal speech Thought process: normal thought process Results Additional Findings Additional findings: If on a controlled substance or opioids, I have checked an [place] report on this patient and there are no aberrancies noted in the prescribing history.??If on a controlled substance or opioid a drug screen was completed and reviewed within the last year, and if there has not been a drug screen completed we ordered one today to monitor higher risk, state monitored pain medication use. As part of providing excellent, safe, comprehensive care, the following was completed at our patient's visit: 1. A medication reconciliation and review to ensure accurate knowledge of current/active medications, including asking our patients to inform us about any [id number] medications or herbal remedies/nutritional supple ments/alternative remedies. 2. A review to specifically ensure our patients have had annual screening for screening for depression, screening for tobacco use, and screening for unhealthy alcohol use. For concerning screenings had a discussion with the patient, provided patient education, and recommended follow-up with primary care provider when appropriate. If patient noted with a risk of falling, they received education on strength, gait, and balance training to prevent future risk of falling. Portions of this note may have been carried over from the previous visit and updated as appropriate. Please note this office utilizes paper charting in addition to the electronic medical record. A list of current medications, vitals, and PMH is available there as the clinical staff outside of myself do not have access to [employer] charting during the clinic day operations. As part of providing quality comprehensive care the current medications, vitals, and PMH were reviewed in the paper chart. Assessment and Plan Assessment and Plan (1) Lumbosacral radiculopathy: Plan The patient has had over 3 months of moderate to severe low back and BLE pain with functional impairment and inadequate response to conservative care including NSAIDS (unless there are contraindication such as concurrent blood thinners), multiple oral or topical pain medications, and home exercise program/physical therapy.? Patient has completed >6 weeks of guided home exercise program and/or formal physical therapy program without relief of their symptoms.? I have reviewed the imaging of the lumbar spine and no red flags were identified.? The Oswestry Disability Index was completed, and the patient scored a 48%.? The patient noted the following:?? moderate to severe pain impacting ADLs, sitting, standing, sleeping, social life, travel We discussed the risks and benefits of the procedure with the patient, and we are NOT planning on using sedation as outlined in the guidelines from Medicare unless there is a documented reason that sedation would be strongly recommen ded.??The procedure will be completed with fluoroscopic guidance.? bilateral L5-S1 TFESI under fluoroscopy continue medication management through neurology at this time f/u 2 weeks after injection
== END 2025-01-27 14:42 | disposition home or self-care (01) ==
LOC: PM 14:42
PROVIDERS: PCP Family Medicine; Visit Provider Nurse Practitioner
DX: M54.16 Radiculopathy, lumbar region (principal)
CPT/HCPCS: G0463

== ENCOUNTER 2025-03-01 07:25 | Day surgery (SDC) | payer OTHER, SELFPAY ==
--- OUTSIDE RECORDS SUMMARY | 2022-02-09 10:30 | XMS_ITS | Continuity of Care Document ---
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 Phone Damian HADLEY Darion Unavailable Unavailable Allergies, Adverse Reactions, Alerts Substance Reaction Status Criticality MORPHINE HCL Active No Information trimethoprim Active No Information sulfamethoxazole Active No Informat ion Medications Medication Instructions Dosage Effective Dates (start - stop) Status Comments prazosin 2 mg capsule take 1 capsule by oral route 3 times every day 2 MG - Active trazodone 100 mg tablet take 1 tablet by oral route 2 times every day after meals 100 MG - Active lamotrigine 25 mg tablet take 2 tablet by oral route 2 times every day 50 MG - Active divalproex ER 250 mg tablet,extended release 24 hr take 2 tablet by oral route every day 500 MG - Active Loestrin Fe 1.5/30 (28-Day) 1.5 mg-30 mcg (21)/75 mg (7) tablet take 1 tablet by oral route every day 1.00 tablet - Active melatonin 5 mg capsule - Active Zyrtec-D 5 mg-120 mg tablet,extended release take 1 tablet by oral route every 12 hours 1.00 tablet - Active sodium desoxycholate (bulk) 100 % powder - Active Zyprexa 5 mg tablet take 1 tablet by oral route every day 5 MG - Active hydroxyzine HCl 25 mg tablet take 1 tablet by oral route 3 times every day as needed 25 MG - Active olanzapine 10 mg tablet take 1 tablet by oral route every day 10 MG - Active ibuprofen 400 mg tablet take 1 tablet by oral route every 4 - 6 hours as needed 400 MG - Active Procedures Procedure Date Limited Oral Eval Oral Hygiene Instruction No Charge Intraoral-periapical 1st Film 2 Bitewig-single Film Oral Hygiene Instruction Limited Oral Eval Limited Oral Eval Extract; Erupted Th/exposted Rt 021 Oral Hygiene Instruction Prophylaxis Adult Intraoral-complete Series (bw) Panoramic Film Comp Oral Eval New/estab Patient 2019 Oral Hygiene Instruction Advance Directives Directive Yes / No Effective Date File Name No Information Encounters Encounter Description Practice Location Reason(s) For Visit Diagnoses Date Provider Providers Copied on Encounter [facility], [address] [place] [address], [id number], tel:[phone] Dental Clinic DL (chief complaint) Encounter for screening for dental disorders Damian Orlando. [address] [place] [address], [id number], [place]. tel:[phone] [facility], [address] [place] [address], [id number], tel:[phone] Dental Clinic Ext. (chief complaint) Encounter for screening for dental disorders Damian PORTER Doris. . tel:[phone] [facility], [address] [place] [address], [id number], [place] tel:[phone] Dental Clinic Dental limited (chief complaint) Encounter for screening for dental disorders Damian WALKERS Doris. . tel:[phone] [facility], [address] [place] [address], [id number], [place] tel:[phone] Dental Clinic Encounter for screening for dental disorders Rodney Ashford. [address] [place] [address], [id number], [place]. tel:[phone] [facility], [address] [place] [address], [id number], tel:[phone] Dental Clinic prophy (chief complaint) Encounter for screening for dental disorders James Dean. [address] [place] [address], [id number], . tel:[phone] [facility], [address] [place] [address], [id number], [place] tel:[phone] Dental Clinic DN (chief complaint) Encounter for screening for dental disorders James WALKER Jermaine. [address] [place] [address], [id number], . tel:[phone] Family History Family Member Type Diagnosis Age At Onset Father Problem Anxiety Mother Problem hypertension Father Problem depression Mother Problem Anxiety Father Problem hypertension Mother Problem depression Payers Payer name Insurance type Covered green party ID Roosevelt bales(s) D Medicaid [facility] [id number] Social History Type Description Quantity Date Captured Comments Alcohol Use Details Unknown Caffeine Use Details Unknown Tobacco Use Status Current non-smoker Smoking Status Never smoker Sex Female Sexual Orientation Straight or heterosexual Gender Identity Female Vital Signs Date / Time: Height Weight BMI Pulse Rate Blood Pressure Temperature Respiratory Rate Body Surface Area Head Circumference Head Circ. Percentile Wt./Atif. Percentile BMI percentile Pulse Ox Inhaled Ox 3:55 PM 80 /min 138/89 mm[Hg] 97.90 F Chief Complaint And Reason For Visit From encounter dated '02/09/2022 15:30'. DL (chief complaint) Reason For Referral Reason For Referral No Information Plan Of Treatment Date Type Action Status Goal PRAPARE ASSESSMENT. Due on N due Goal Tdap. Due on due Goal Influenza vaccine. Due on No v due Goal RLP. Due on due Goal Depression screening. Due on due Goal Depression screening. Due on due Goal Influenza vaccine. Due on Se due Goal PRAPARE ASSESSMENT. Due on S due Goal Tdap. Due on due Goal RLP. Due on due Goal RLP. Due on due Goal Tdap. Due on due Goal Depression screening. Due on due Goal Influenza vaccine. Due on Au due Goal PRAPARE ASSESSMENT. Due on A due History Of Present Illness Encounter Date Complaint History Of Prese nt Illness DL Ext. Dental limited Dental limited, Lower left , pain level 1 prophy prophy DN Functional Status Date Functional Assessmen t No Information Instructions Date Instruction Additional Infor mation No Information Assessments Type Assessment Date assessment Encounter for screening for dent al disorders Patient Care Teams Name Effective Dates (start - stop) Status Members No Information
--- OUTSIDE RECORDS SUMMARY | 2023-12-11 09:30 | XMS_ITS | Continuity of Care Document ---
Author Organization [facility] Address [address] [place] [phone] Phone Care Team Providers Care Chief Of Police Name Role Phone Fab DENISECheikh Clemens Unavailable Unavailable Allergies, Adverse Reactions, Alerts Substance Reaction Status Criticality trimethoprim Active No Information sulfamethoxazole Active No Informat ion Procedures Procedure Date Denies Tobacco Use HYG - J. Jovita PROPHYLAXIS:ADULT Topical Application Of Fluoride 024 ORAL HYGIENE INSTRUCTIONS NUTRITIONAL COUNSELING Refer To Oral Surgeon HYG - J. Jovita Denies Tobacco Use PANORAMIC FILM BITEWIN FILMS INTRAORAL:PERIAPICAL 1ST FILM INTROORAL:PERIAPICAL-EA ADD FILM 2023 INTROORAL:PERIAPICAL-EA ADD FILM 2023 INTROORAL:PERIAPICAL-EA ADD FILM 2023 COMPR ORAL EVAL:NEW/EST Caries risk assessment & documentation, high risk Advance Directives Directive Yes / No Effective Date File Name No Information Encounters Encounter Description Practice Location Reason(s) For Visit Diagnoses Date Provider Providers Copied on Encounter [facility], [address] [place] [address], [id number], [place] tel:[phone] [facility] Main Deposits [accretions] on teethEncntr for oth proc for purpose oth than remedy health stateInappropriate diet and eating habits 4 Fab Salamanca. [address] [place] [address], [id number] [id number], [id number] , [place]. tel:[phone] [facility], [address] [place] [address], [id number], [place] tel:[phone] [facility] S Main No Information 4 Fab Salamanca. [address] [place] [address], [id number] [address], [place], [id number] , [place]. tel:[phone] [facility], [address] [place] [address], [id number], [place] tel:[phone] [facility] Main Encounter for dental exam and cleaning w/o abnormal findings 4 Fab Salamanca. [address] [place] [address], [id number] [place], [place], [id number] , [place]. tel:[phone] Family History Family Member Type Diagnosis Age At Onset No Information Payers Payer name Insurance type Covered green party ID Roosevelt bales(ashlee) [facility] [employer] [id number] [facility] [id number] Social History Type Description Quantity Date Captured Comments Sex Female Smoking Status No Information Sexual Orientation Straight or heterosexual Gender Identity Female Chief Complaint And Reason For Visit No Information Reason For Referral Reason For Referral No Information Plan Of Treatment Date Type Action Status Goal Pap/HPV testing. Due on due Goal Influenza vaccine. Due on due Goal Unhealthy drug use screening . Due on due Goal Depression screening. Due on due Goal PAP. Due on due Goal Tdap. Due on due Goal Td vaccine. Due on due Goal HPV. Due on due Goal Hepatitis C screening. Due o n due History Of Present Illness Encounter Date Complaint History Of Prese nt Illness No Information Functional Status Date Functional Assessmen t No Information Instructions Date Instruction Additional Infor mation No Information Assessments Type Assessment Date No Information Patient Care Teams Name Effective Dates (start - stop) Status Members No Information
--- OUTSIDE RECORDS SUMMARY | 2025-02-24 09:39 | XMS_ITS ---
Author Name Auto Generated Organization OHIP Support Name Relationship Address Phone BENITO DAWN Next of Kin YUE DAWN [address] [birth year] [place] [address] + Care Team Providers Care Clinical Nurse Name Role Phone TORSTEN DELATORRE Attending Physician Unavailable KOLTON JUÁREZ Attending Physician Unavail CAROLYN Malagon Attending Physician Unavail able TORSTEN DELATORRE Attending Physician Unavailable ALBERTO RAMIREZ Attending Physician Unavailable JAREN SHAFFER Attending Physician Unavailab OTF Contreras Attending Physician Unavailab SIENNA Ascencio Attending Physician Unavailab JESSENIA Rubio Attending Physician Unavailable ALBERTO RAMIREZ Attending Physician Unavailable MARGARET LEACH Attending Physician Unavailab ALBERTO Daniel Attending Physician Unavailable KOLTON JUÁREZ Attending Physician Unavail able ALBERTO RAMIREZ Unavailable Unavailable Janneth Ramirez Primary Care Physician Unavail able Kolton Juárez Admitting Physician Unavailab Kolton Goldman Attending Physician Unavailab Richie Lopez Attending Physician Unavailable Janneth Ramirez Primary Care Physician Unavail able Richie Miles Admitting Physician Unavailable Janneth Ramirez Primary Care Physician Unavail able Torsten Delatorre Admitting Physician Unavailable Torsten Delatorre Attending Physician Unavailable Janneth Ramirez Primary Care Physician Unavail able Kolton Juárez Admitting Physician Unavailab Kolton Goldman Attending Physician Unavailab Janneth Daniel Primary Care Physician Unavail able Billy Eaton Admitting Physician Unava ilable Billy Eaton Attending Physician Unasherman ilJanneth Fulton Primary Care Physician Unavail able Kolton Juárez Admitting Physician Unavailab Kolton Goldman Attending Physician Unavailab Jacklyn Cast Attending Physician Unavailable DELATORRETORSTEN Unavailable Unavailable PAU VO Attending Physician UnavailJacklyn Jasso Attending Physician Unavailable TORSTEN DELATORRE Unavailable Unavailable PAU VO Attending Physician UnavailPAU Castro Attending Physician Unavailmathew ghotra PROBLEMS DATE TYPE CONDITION / CODE ATTENDING STATUS [facility] 10/28/2024 Unknown Muscle weakness (generalized) / M62.81(ICD-10) [facility] 10/28/2024 Unknown Paresthesia of s kin / R20.2(ICD-10) [facility] 10/28/2024 Unknown Low back pain, unspecified / M54.50(ICD-10) [facility] 10/28/2024 Unknown Other chronic pa in / G89.29(ICD-10) [facility] 10/28/2024 Unknown Radiculopathy, lumbosacral region / M54.17(ICD-10) [facility] 10/28/2024 Unknown Abnormal reflex / R29.2(ICD-10) [facility] 08/16/2024 Unknown Unspecified inju ry of right wrist, hand and finger(s), initial encounter / S69.91XA(ICD-10) Richie Miles [facility] 04/28/2024 Unknown Calculus of gall bladder with chronic cholecystitis without obstruction / K80.10(ICD-10) Kolton Juárez [facility] RESULTS PATIENT EDUCATION Observed: 01/14/2025 10:53 AM Status : F Source: [facility] Patient Education Obstetrics and Gynecology Overactive Bladder, Adult [...] health care provider. General instructions ??? Take sjxg-gcv-wzxyhun and prescription medicines only as told by [...] your health care provider monitor your condition. ??? Keep all follow-up visits. This is important. Contact a health care provider if: ??? You have a fever or chills. ??? Your symptoms do not get better with treatment. ??? Your pain and discomfort get worse. ??? You have more frequent urges to urinate. Get help right away if: ??? You are not able to control your bladder. Summary ??? Overactive bladder refers to a condition in which a person has a sudden and frequent need to urinate. ??? Several conditions may lead to an overactive bladder. ??? Treatment for overactive bladder depends on the cause and severity of your condition. ??? Making lifestyle changes, doing Kegel exercises, keeping a log, and taking medicines can help with this condition. This information is not intended to replace advice given to you by your health care provider. Make sure you discuss any questions you have with your health care provider. Document Revised: 12/12/2020 Document Reviewed: 12/12/2020 [employer] Private Patient Education ? 2023 [employer]. UROLOGY OFFICE/CLINIC NOTE Observed: 12/2024 10:13 AM Status: C Source: [facility] Urology Office/Clinic Note HPI Staff 34 year old [...] Oxybutynin 10 mg qd. Script sent to [facility] Ludwig. -Increased water intake, limit [...] with voice recognition artificial intelligence software, specifically [employer], [employer] and or [employer]. Substitutions may have occurred due to the [...] 1 tab(s), Oral, Daily, 6 refills prazosin 2 mg oral capsule, 2 mg= [...] Father. Hypertension: Father. Mental illness: Mother. Migraine: Father. Lab Results Ambulatory Point of Care Results Bilirubin Urine Dipstick: Negative (01/14/25 10:27:00) Blood Urine Dipstick: Negative (01/14/25 10:27:00) Glucose Urine Dipstick: Negative (01/14/25 10:27:00) Ketones Urine Dipstick: Negative (01/14/25 10:27:00) Leukocytes Urine Dipstick: 1+ Small (01/14/25 10:27:00) Nitrite Urine Dipstick: Negative (01/14/25 10:27:00) Protein Urine Dipstick: Negative (01/14/25 10:27:00) Specific [place] Urine Dipstick: 1.020 (01/14/25 10:27:00) Urine Appearance Urine Dipstick: Clear (01/14/25 10:27:00) Urine Color Urine Dipstick: Yellow (01/14/25 10:27:00) Urobilinogen Urine Dipstick: Normal 0.2-1 EU/dl (01/14/25 10:27:00) pH Urine Dipstick: 6.5 (01/14/25 10:27:00) Documentation recorded by the scribeBenita, accurately reflects the services(s) I performed and decisions made by me. Authenticated by Jacklyn Rivera PA-C_ on 01/14/2025 11:02:06.Result Comment: Electronically Signed By: Jacklyn Duggan\.br\Date and Time Signed: 01/14/25 11:02 EDT MR HEAD/BRAIN WO/W CON Observed: 025 9:27 AM Status: COMPLETED Source: [facility] [place] [address] MRI Report Signed Patient: Yue Dawn MR#: [id number] : 1990 Acct:[id number] Age/Sex: 34 / F ADM Date: 10/28/24 Loc: MR Room: Type: [facility] Attending Dr: Torsten VASQUEZ Copies to: PEDRO Sanchez Ordering Provider: [...] Howe M.D. 10/29/2024 9:37 AM Dictation Location: [place] [address] Transcribed By: [facility] 10/29/2437 Dictated By: Alexis Howe MD 10/29/24 0927 Signed By: <Electronically signed by Alexis Howe MD in OV> 10/29/24 0937 MR LUMBAR SPINE WO CON Observed: 025 8:46 AM Status: COMPLETED Source: [facility] [place] [address] MRI Report Signed Patient: Yue Dawn MR#: [id number] : 1990 Acct:[id number] Age/Sex: 34 / F ADM Date: 10/28/24 Loc: MR Room: Type: [facility] Attending Dr: Torsten VASQUEZ Copies to: PEDRO Sanchez Ordering Provider: [...] Howe M.D. 10/29/2024 8:55 AM [facility]ictation [facility] Transcribed By: [facility] 10/29/24 0855 Dictated By: Alexis Howe MD 10/29/24 0846 Signed By: <Electronically signed by Alexis Howe MD in OV> 10/29/24 0855 XR HAND RT MIN 3V* Observed: 08/16/2024 5:05 PM Status: COMPLETED Source: [facility] Main [address] [address] XRay Report Signed Patient: Yue Dawn MR#: [id number] : 1990 Acct:[id number] Age/Sex: 33 / F ADM Date: 08/16/24 Loc: ER Room: Type: [facility] ER Attending Dr: Copies to: Richie Miles [...] Bridges M.D. 08/16/2024 5:05 PM Dictation Location: [place] [address] Transcribed By: [facility] 08/16/241704 Dictated By: Gallito Bridges II, MD 08/16/241704 Signed By: <Electronically signed by Gallito Bridges II, MD in OV> 08/16/241704 PATIENT EDUCATION Observed: 06/28/2024 10:07 AM Status : F Source: [facility] Patient Education Obstetrics and Gynecology Overactive Bladder, Adult [...] health care provider. General instructions ??? Take uvkn-ycv-emacncl and prescription medicines only as told by [...] your health care provider monitor your condition. ??? Keep all follow-up visits. This is important. Contact a health care provider if: ??? You have a fever or chills. ??? Your symptoms do not get better with treatment. ??? Your pain and discomfort get worse. ??? You have more frequent urges to urinate. Get help right away if: ??? You are not able to control your bladder. Summary ??? Overactive bladder refers to a condition in which a person has a sudden and frequent need to urinate. ??? Several conditions may lead to an overactive bladder. ??? Treatment for overactive bladder depends on the cause and severity of your condition. ??? Making lifestyle changes, doing Kegel exercises, keeping a log, and taking medicines can help with this condition. This information is not intended to replace advice given to you by your health care provider. Make sure you discuss any questions you have with your health care provider. Document Revised: 12/12/2020 Document Reviewed: 12/12/2020 [employer] Private Patient Education ? 2023 [employer]. AMBULATORY VISIT SUMMARY Observed: 06/25 8:59 AM Status: F Source: [facility] Ambulatory Visit Summary CAESARSHAWN LEEKARELY Ghotra :1990 Visit Date:06/25/2024 Ambulatory Visit Instructions Your Diagnosis Mixed incontinence urge and stress Your Care Team Attending Physician - PAU VO PA-C Primary Care Physician - Livia RAMIREZ DO Referring Physician - TORSTEN DELATORRE This Is Your Medications List Contact [...] 8:20 AM EDT With: GILDA SOLIS, PAU Ghotra Where: [facility] [address] [place] [address]- Medications What How Much When Instructions Unchanged [...] you for choosing us for your care. AMBULATORY VISIT SUMMARY Observed: 06/25 8:59 AM Status: F Source: [facility] Ambulatory Visit Summary YUE DAWN :1990 Visit Date:06/25/2024 Ambulatory Visit Instructions Your Diagnosis Mixed incontinence urge and stress Your Care Team Attending Physician - PAU VO PA-C Primary Care Physician - Livia RAMIREZ DO Referring Physician - TORSTEN DELATORRE This Is Your Medications List Contact [...] PAU VO PA-C Where: [facility] [place] [id number]- Medications What How Much When Instructions Unchanged [...] you for choosing us for your care. UROLOGY OFFICE/CLINIC NOTE Observed: 8:59 AM Status: F Source: [facility] Urology Office/Clinic Note Chief Complaint urinary frequency, urgency and incontnence [facility] Staff 33yr old female pt referred by Torsten Delatorre NP for incontinence. Pt has Cerebral [...] With When Contact Information GILDA SOLIS, PAU Ghotra, URL In 3 months [address] [place] [address] Additional Instructions: Patient Education Overactive [...] Father. Hypertension: Father. Mental illness: Mother. Migraine: Father.Result Comment: Electronically Signed By: PAU VO PA-C.br\Date and Time Signed: 06/28/2509:09 EDT BILIRUBIN,TOTAL Collected: 7:39 AM Status: F Source: [facility] TYPE CODE TESTS RESULT OUT OF RANGE REFERENCE UNITS LAB BILIT Bilirubin,T otal 0.5 Normal 0.3-1.0 mg/dL Performed By: [address] ALKALINE PHOSPHATASE Collected: 04/28/2024 7:39 AM S tatus: F Source: [facility] TYPE CODE TESTS RESULT OUT OF RANGE REFERENCE UNITS LAB ALP Alkaline Phosphatase 81 Normal 34-104 U/L Performed By: [address] AMYLASE Collected: 7:39 AM Status: F Source: [facility] TYPE CODE TESTS RESULT OUT OF RANGE REFERENCE UNITS LAB ANAYELI Amylase 23 Low 29-103 U/L Result Comment: PERFORMED BY : [place] [id number] PATHOLOGIST WASHER MACHINE KENZIE LAN M.D.Performed By: [place] [id number] [facility] HCG,URINE Collected: 04/28/2024 6:40 AM Status: F Source: [facility] TYPE CODE TESTS RESULT OUT OF RANGE REFERENCE UNITS LAB UHCGQ HCG Qualitative,Urine Negative Result Comment: PERFORMED BY: [address] [address] PATHOLOGIST WASHER MACHINE KENZIE LAN M.D.Performed By: [address] [address] [facility] DRUG SCREEN,URINE Collected: 6:40 AM Status: F Source: [facility] TYPE CODE TESTS RESULT OUT OF RANGE REFERENCE UNITS LAB URAMPS Amphetamine Screen,Urine Negative NegativeLABURBARBSBarbiturate Screen,UrineNegativeNegativeLABURBENZS Benzodiazepines Screen,UrineNegativeNegativeLABURCOCSCocaine Screen,Urine NegativeNegativeLABUROPISOpiate Screen,UrineNegativeNegativeLABURPCPS Phencyclidine Screen,UrineNegativeNegativeLABURTHCSCannabinoid Screen,Urine NegativeNegativeResult Comment: These are unconfirmed results and should not be used for legal purposes. Drug Cut-Off Concentration: AMPH 1000 ng/mL YOVANY 200 ng/mL DERRICK 200 ng/mL COCM 300 ng/mL OP 300 ng/mL PCP 25 ng/mL THC 20 ng/mL PERFORMED BY: [place] [id number] PATHOLOGIST WASHER MACHINE KENZIE LAN M.D.Performed By: [address] [address] [facility] L Observed: 04/28/2024 12:00 AM Status: F Source: [facility] ----- ------- Specimen: [id number] Received: 04/28/24 Status: TAYLOR Hester Num: [id number] Spec Type: Surgical Subm Dr: Kolton Juárez DO Tissues: A Gallbladder (GALLBLADDER) Procedures: HE/2, Gross/Micro L3 Age/ Patient Sex Location Account Attending Physician Yue Dawn 33/F [place] [id number] Kolton Juárez DO SPEC NUM: [id number] RECD: 04/28/24 STATUS: TAYLOR CHICA NUM: [id number] TJ: 04/28/24- SUBM DR: Kolton Juárez DO ENTERED: 04/28/24-[address]: NROA TYPE: Surgical DEPT: S ENTERED BY: [id number] RECV BY: [id number] ORDERED: HE/2, Gross/Micro L3 ORDERED: HE/2, Gross/Micro [...] tissue, up to 0.8 cm in thickness. It Architecture Analyst sections of the gallbladder are submitted in A2. (2, ss, S20-031 A) CPT Codes 18387 Specimen: [id number] Received: 04/28/24 Status: TAYLOR Hester Num: [id number] Spec Type: Surgical Subm Dr: Kolton Juárez DO Tissues: A Gallbladder (GALLBLADDER) Procedures: HE/Afua, Gross/Pastor L3 Patient: Yue Dawn [id number] (Continued) Signed (signature on file) Kenzie Lan MD 04/29/24 1436 ALLERGIES DATE TYPE / CODE NAME / CODE REACTION SEVERITY SOURCE 01/13/2025 Drug Allergy/1566970 02(SNOMED CT) morphine/Z326030105(RXNORM) Nausea and vomiting [facility]/478678912(SNOMED CT)[id number] Clinic Mentor HospitalDR/913425580(SNOMED CT)[id number] Clinic Mentor HospitalDR/069689532(SNOMED CT)sulfa [id number] [place] [address] ENCOUNTERS ADMIT/DISCHARGE ACCOUNT NUMBER ADMITTING ENCOUNTER CLASS LOC ATION SOURCE 02/24/2025/02/24/2025 [id number] AmbulatoryBuilding:NOMS [facility]ret [facility] caread[facility]02/18/2025 [id number] bentleyCleveland Clinic Marymount HospitalBuilding:[facility]01/20/2025/01/20/2025 [id number]:NOMS ANTONIA [facility]SEmanate [facility] 01/14/2025/[id number] [place]kyBuilding:EU [place]kyRoom: Exam 1[facility]01/13/2025/[id number] [place]Building:EU [place]vueC[facility] Clinic [facility]01/06/2025/01/06/2025 [id number]:NOMS Deejay [facility] 12/24/2024/[id number]:NOMS ANTONIA Torrezreunion rehabilitation hospital phoenixadarsh [facility]10/28/2024/10/28/[id number], Torsten EAUniversity Hospitals TriPoint Medical CenterBuilding:[facility] 09/10/2024/[id number]:NOMS ANTONIA [facility] EPIC09/03/2024/[id number] [place]Building:EU [place]Room: Exam 1FSelect [facility]09/02/2024/[id number] AmbulatoryBuilding:NOMS ANTONIA [facility] EPIC 08/26/2024/[id number]:NOMS ANTONIA [facility]08/26/2024/[id number]:NOMS FABRIZIO [facility] Medical [facility] EPIC08/16/2024/08/16/[id number] MilesRegency Hospital CompanyBuilding:EDFTRoom: EDMemorial Health System07/30/2024/[id number] Building:BSR [facility]06/25/2024/06/25/2024 [id number] [place]Building:EU [facility] 06/18/2024/[id number] [place]Building:EU [facility]06/11/2024/[id number]:BSR NEURO [facility] [id number] [place]vueBuilding:EU [facility]05/13/2024/05/13/2024 [id number]:NOMS ST [facility] EPIC 05/13/2024/[id number]:BSR [facility] Medical [facility] EPIC04/28/2024/04/28/[id number], FredricAUniversity Hospitals TriPoint Medical CenterBuilding:[facility] 04/03/2024/04/03/[id number] Hospitals St. John Medical CenterBuilding:[facility]03/19/2024/03/19/2024 [id number] Hospitals TriPoint Medical CenterBuilding:[facility]03/11/2024/[id number] AmbulatoryBuilding:NOMS [facility] EPIC PAYERS ENCOUNTER GUARANTOR PAYER SUBSCRIBER SOURCE 02/24/2025 YUE SNOWB: [place] [address]Gjy: (HP)[id number] jerDOB: [place] [address]Kxn: ~(41 9 (HP) Primary Insurance:[employer] MEDICAIDPolicy Number: [id number] Date:2018-09-06 YUE DAWNDOB: [id number] [place] [address] [facility] 02/18/2025 Yue [address] [place] [address]Ksz: (HP) Primary Insurance:Self PayPolicy Number: Effective Date:2022-07-31 [facility] 01/20/2025 YUE DAWNDOB: [place] [address]Cyq: (HP)[id number] jerDOB: [place] [address]Bca: ~(41 9 (HP) Primary Insurance:[employer] MEDICAIDPolicy Number: [id number] Date:2018-09-06 YUE DAWNDOB: [id number] [place] [address] [facility] 01/14/2025 YUE Ghotra FIDLERDOB: BELLE AVETel: ~(41 9 (HP) Primary Insurance:[facility] Number: [id number] Date:[id number] [address]RJ: YUE BOWLES [facility] 01/13/2025 YUE Ghotra FIDLERDOB: BEL[place] AVETel: ~(41 9 (HP) Primary Insurance:[facility] Number: [id number] Date:[id number] [address]EL: YUE BOWLES [facility] 01/06/2025 YUE Ghotra FIDLERDOB: [place], [place] [address]Eml: (HP)[id number] jerDOB: [place] [address]Azg: ~(41 9 (HP) Primary Insurance:[employer] MEDICAIDPolicy Number: [id number] Date:2018-09-06 YUE Ghotra FIDLERDOB: [id number] [place] [address] [facility] 12/24/2024 YUE Ghotra FIDLERDOB: [place] [address]Vmm: (HP)[id number] jerDOB: [place] [address]Sbw: ~(41 9 (HP) Primary Insurance:[employer] MEDICAIDPolicy Number: [id number] Date:2018-09-06 YUE DAWNDOB: [id number] [place] [address] [facility] 10/28/2024 Yue Tej Acffgj163[place]ayda [place] [address]Zld: (HP) Primary Insurance:[place] MedicaidPolicy Number: [id number] Date:1849-67-76[address] [address]WW: Yue DawnDOB: [id number] [place] [place] [facility]Crw: (HP) [facility] 10/28/2024 Yue Dawn329 [place] [facility]Jkd: (HP) Secondary Insurance:Self PayPolicy Number: Effective Date:2024-10-20 NOT [facility]ENMer[facility] 09/10/2024 [id number] OB: [place] [address]Vbp: (HP)YUE DAWNDOB: [place] [address]Wmu: ~(41 9 (HP) Primary Insurance:[employer] MEDICAIDPolicy Number: [id number] Date:2018-09-06 YUE NAVASLERDOB: [id number] [place] [address] [facility] 09/03/2024 YUE DAWNDOB: PH[place]LLIS Longl: ~(41 9 (HP) Primary Insurance:[facility]ctors HospitalPolicy Number: [id number] Date:8598-91-19[address] [place] [address]CD: SHAWNKARELY Ghotra JELENA [facility] 09/02/2024 [id number] OB: [place], [place] [address]Fix: (HP)SADIQA Tej FIDLERDOB: [place], [place] [address]Nor: ~(41 9 (HP) Primary Insurance:[employer] MEDICAIDPolicy Number: [id number] Date:2018-09-06 SADIQA Tej FIDLERDOB: [id number] [place] [address] [facility] 08/26/2024 [id number] OB: [place], [place] [address]Dce: (HP)SADIQA Tej FIDLERDOB: [place] [address]Kyw: ~(41 9 (HP) Primary Insurance:[employer] MEDICAIDPolicy Number: [id number] Date:2018-09-06 YUE Ghotra FIDLERDOB: [id number] [place] [address] [facility] 08/26/2024 SADIQA Tej FIDLERDOB: [place] [address]Buo: (HP) Primary Insurance:[employer] MEDICAIDPolicy Number: [id number] Date:2018-09-06 SADIQA Tej FIDLERDOB: [id number] [place] [address] [facility] 08/16/2024 Sadiqa Tej Bwyfsw[address] [place] [address]Kiq: (HP) Primary Insurance:[facility] Huron HospitaljerPolicy Number: [id number] Date:7481-42-18[address]Smuae JAVIER Rosario [address]KH: Yue Ghotra FidlerDOB: [id number] [place] [address]Wzw: (HP) [facility] 08/16/2024 Yue Ghotra Ohmjhi[address] [place] [address]Uby: (HP) Secondary Insurance:[place] MedicaidPolicy Number: [id number] Date:4840-35-28[address] [address]QT: Yue NavaslerDOB: [id number] [place] [address]Nug: (HP) [facility] 08/16/2024 Yue Navasler[address] [place] [address]Bjx: (HP) Tertiary Insurance:Self PayPolicy Number: Effective Date:2024-08-16 NOT GIVENUNK [facility] 07/30/2024 SHAWNKARELY Ghotra FIDLERDOB: [place], [place] [address]Uit: (HP) Primary Insurance:[employer] MEDICAIDPolicy Number: [id number] Date:2018-09-06 YUE Ghotra FIDLERDOB: [id number] [place] [address] [facility] 06/25/2024 SADIQA Tej FIDLERDOB: [place] AVETel: ~( 9 (HP) Primary Insurance:[facility]ult[facility] Hospitaly Number: [id number] Date:7861-35-51MT [address] [place] [address]SQ: YUE BOWLES [facility] 06/11/2024 KELESEA E FIDLERDOB: [place], [place] [address]Gbh: (HP) Primary Insurance:[employer] MEDICAIDPolicy Number: [id number] Date:2018-09-06 KELESEA E FIDLERDOB: [id number] [place] [address] [facility] [place] [facility]24 KELESEA E FIDLERDOB: [place], [place] [address]Uvv: (HP) Primary Insurance:[place] [employer] MEDICAIDPolicy Number: [id number] Date:2018-09-06 SADIQA E FIDLERDOB: [id number] [place] [address] [facility] 05/13/2024 KELESEA E FIDLERDOB: [place], [place] [address]Oxh: (HP) Primary Insurance:[place] [employer] MEDICAIDPolicy Number: [id number] Date:2018-09-06 SHAWNRAOULA E FIDLERDOB: [id number] [place] [address] [facility] 04/28/2024 Kelraoula eTj [address] [place] [address]Jmt: (HP) Primary Insurance:[place] MedicaidPolmercyone [facility] Number: [id number] Date:2090-38-79[address], [place] [address]MR: Sadiqa Tej FidlerDOB: [id number] [place] [address]Ihu: () [facility] 04/28/2024 [address] [place] [address]Ufq: (HP) Secondary Insurance:Self PayPolicy Number: Effective Date:2024-04-06 [facility] [address] [address]Aip: (HP) Primary Insurance:Self PayPolicy Number: Effective Date:2024-03-11 [facility] 03/19/2024 [address] [place] [address]Qmb: (HP) Primary Insurance:Self PayPolicy Number: Effective Date:2024-03-11 [facility] 03/11/2024 YUE SNOWB: [place] [address]Qxd: () Primary Insurance:[place] [employer] MEDICAIDPolicy Number: [id number] Date:2018-09-06 YUE SNOWB: [id number] [place] [address] [facility] EPIC
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
--- OUTSIDE RECORDS SUMMARY | 2025-03-01 07:27 | XMS_ITS | Encounter Summary ---
Author Organization [facility] Address [address] [address] [place] [address] Support Name Relationship Address Phone Scott Dawn Spouse Saida Dawn 6 11 04/09 [facility] [address] [place] [address] Care Team Providers Care Conference Manager Name Role Phone Vijay Ramirez DO Primary Care Provider Vijay Ramirez DO Unavailable [phone] DO Unavailable [phone] Elise Harley NP Unavailable [phone] Encounter Details DateTypeDepartmentCare Team (Latest Contact Info)Xjkxrmcgrkz86/19/2025amboo flowsheet [facility] [address] [place] [address] Vijay Ramirez, DO [address] [place] [address] Social History Tobacco UseTypesPacks/DayYears UsedDateSmoking Tobacco: NeverPassive [...] or more drinks on one occasion?Less than iitvlpt26/05/2024PHQ-2AnswerDate RecordedPatient Health Questionnaire-2 Lnhlq80804/26/2024CommentsNoSex and Gender Information ValueDate RecordedSex Assigned at OmfoiRbuekl54/30/2023 3:35 PM EDTLegal Sex Guqvgmmhs04/30/2023 3:35 PM EDTGender IdentityNot Rzudzs3209/04/2022 3:35 PM EDT Sexual WlhsgmqqdjqPemuclsy55/30/2023 3:35 PM EDTdocumented as of this encounter Plan of Treatment Not on file documented as of this encounter Visit Diagnoses Not on filedocumented in this encounter Care Teams Team MemberRelationshipSpecialtyStart DateEnd Date Vijay Ramirez DO [address] [place] [address] PCP - [facility]09/05/22 Vijay Ramirez DO [address] [place] [address] [facility]10/07/23 Praful Dale DO [address] [place] [address] Referring PhysicianNeurology2/08/30 Elise Harley NP [address] [place] [address] Nurse PractitionerNeurology07/30/24documented as of this encounter
--- OUTSIDE RECORDS SUMMARY | 2025-03-01 07:27 | XMS_ITS | Encounter Summary ---
Author Organization [facility] Address [address] [place] [address] Support Name Relationship Address Phone Scott Dawn Spouse Saida Dawn 6 11 04/09 [facility] [address] [place] [address] Care Team Providers Care Radar Engineer Name Role Phone Vijay Ramirez DO Primary Care Provider [phone] Vijay Ramirez DO Unavailable [phone] DO Unavailable [phone] Elise Harley NP Unavailable [phone] Encounter Details DateTypeDepartmentCare Team (Latest Contact Info)Fvqoeatxjqy28/19/2025Travel Social History Tobacco UseTypesPacks/DayYears UsedDateSmoking Tobacco: NeverPassive [...] or more drinks on one occasion?Less than myijkwb5212/12/2023HQ-2AnswerDate RecordedPatient Health Questionnaire-2 Qrbux57004/26/2024CommentsNoSex and Gender Information ValueDate RecordedSex Assigned at EtymfFxnmps18/30/2023 3:35 PM EDTLegal Sex Qkmbxgtmr10/30/2023 3:35 PM EDTGender IdentityNot Glkeem3209/04/2022 3:35 PM EDT Sexual BawxzvblvtoJumndbop32/30/2023 3:35 PM EDTdocumented as of this encounter Functional Status * Over the past 2 weeks, how often have you been bothered by any of the following problems?QuestionAnswerDate of AssessmentAuthorLittle interest or pleasure in doing thingsNot at all02/24/2025 2:56 PM Nabil Vergara LPNFeeling down, depressed, or hopelessNot at all02/24/2025 2:56 PM EST Nabil Guzman LPNPatient Health Questionnaire-2 Uzjkw57704/26/2024 2:56 PM Nabil Vergara LPN documented as of this encounter Plan of Treatment Not on file documented as of this encounter Visit Diagnoses Not on filedocumented in this encounter Care Teams Team MemberRelationshipSpecialtyStart DateEnd Date Vijay Ramirez DO [address] [place] [address] [facility] Vijay Ramirez DO [address] [place] [address] [facility]10/07/23 Praful Dale DO [address] [place] [address] Referring PhysicianNeurology2 Elise Harley NP [address] [place] [address] Nurse PractitionerNeurology07/30/24documented as of this encounter
--- OUTSIDE RECORDS SUMMARY | 2025-03-01 07:27 | XMS_ITS | Clinical Summary ---
Author Organization [facility] Address [address] [place] [address] Support Name Relationship Address Phone Scott Dawn Spouse Saida Dawn 6 [birth year] [facility] [address] [place] [address] Care Team Providers Care File Conversion Operator Name Role Phone Vijay Ramirez DO Primary Care Provider Vijay Ramirez DO Unavailable [phone] [place] DO Unavailable Elise Harley NP Unavailable [phone] Allergies Active AllergyReactionsCriticalityNoted LwyvFqezffgiWbouvDeszigd53/31/2023 ItrmpdfsRljpizm72/31/0500YcwwjiifpviertosDxegh65/11/2025 Sulfamethoxazole-QgrcfjffynysYwczefg38/31/2024HxzpsvhjtugxGijdl22/11/2025 Medications MedicationSigDispense QuantityRefillsLast FilledStart DateEnd DateStatus cetirizine (ZyrTEC) 10 MG tablet Take 10 mg by mouth Daily as needed for allergiesActive prazosin (Minipress) 2 MG capsule Indications:AnxietyTAKE 1 CAPSULE BY MOUTH EVERYDAY AT BEDTIME 30 capsule 10/23/2022ctive Additional Information Patient taking differently: 4 mg Oral Nightly, Reported on 02/24/2025 ziprasidone (Geodon) 60 MG capsule Take 60 mg by mouth in the evening. Take with meals04/03/2023ctive buPROPion SR (Wellbutrin SR) 150 MG 12 hr tablet Take 150 mg by mouth in the morning and 150 mg before bedtime.12/30/2023ctive MELATONIN PO Take by mouthActive cholecalciferol (Vitamin D-3) 50 MCG (1999 UT) capsule Indications:Vitamin D deficiency, unspecifiedTake 1 capsule (50 mcg) by mouth Daily 90 capsule 4Active baclofen (Lioresal) 5 MG tablet Indications:Cerebral palsy, unspecified type (HCC)TAKE 1 TABLET (5 MG) BY MOUTH 3 (THREE) TIMES A DAY NEEDED FOR MUSCLE SPASMS 270 tablet 5Active hydrOXYzine pamoate (Vistaril) 25 MG capsule Take 25 mg by mouth every 12 (twelve) hours if needed for lbuxoja2808/12/2024 Active lamoTRIgine (LaMICtal) 150 MG tablet Take 1 tablet by mouth at epjjfqn43/16/2025Active oxybutynin XL (Ditropan-XL) 15 MG 24 hr tablet Take 15 mg by mouth Daily5Active traZODone (Desyrel) 150 MG tablet Take 150 mg by mouth at rgaxdkm58/17/2025Active albuterol HFA 90 mcg/act inhaler Indications:Mild intermittent asthma, unspecified whether complicated (HCC)TAKE 2 PUFFS BY MOUTH EVERY 4 HOURS NEEDED FOR WHEEZE 8.5 g 5Active norethindrone-ethinyl estradiol-iron (Lo Loestrin Fe) 1 MG-10 MCG / 10 MCG tablet Indications:PCOS (polycystic ovarian syndrome),Menorrhagia with irregular cycle, DysmenorrheaTake 1 tablet by mouth Daily CONTINUOUSLY, dispense 4 packs 112 tablet 5Active ziprasidone (Geodon) 40 MG capsule Take 40 mg by mouth Daily5Active ibuprofen 600 MG tablet Indications:Osteoarthritis, unspecified osteoarthritis type, unspecified site Take 1 tablet (600 mg) by mouth 4 (four) times a day as needed for mild pain (pain) 90 tablet 5116Active metFORMIN XR (Glucophage-XR) 500 MG 24 hr tablet Indications:Polycystic ovaries,Insulin resistanceTake 1 tablet (500 mg) by mouth in the evening. Take with meals Do not crush, chew, or split. 30 tablet 3116Active gabapentin (Neurontin) 100 MG capsule Indications:Lumbosacral radiculopathyTake 2 capsules (200 mg) by mouth in the morning and 2 capsules (200 mg) before bedtime.5Active famotidine (Pepcid) 40 MG tablet Indications:Gastroesophageal reflux disease, unspecified whether esophagitis presentTake 1 tablet (40 mg) by mouth in the morning.5Active esomeprazole (NexIUM) [address] capsule Indications:Gastroesophageal reflux disease without esophagitisTake 1 capsule (40 mg) by mouth Daily Do not open capsule.02/24/2025tive famotidine (Pepcid) 40 MG tablet Indications:Gastroesophageal reflux disease, unspecified whether esophagitis presentTAKE 1 TABLET BY MOUTH EVERY DAY IN THE MORNING 30 tablet Discontinued(Reorder) ibuprofen 600 MG tablet Indications:Osteoarthritis, unspecified osteoarthritis type, unspecified site Take 1 tablet (600 mg) by mouth 4 (four) times a day as needed for mild pain (pain) 90 tablet Discontinued(Reorder) esomeprazole (NexIUM) [address] capsule Indications:Gastroesophageal reflux disease without esophagitisTake 1 capsule (40 mg) by mouth Daily Do not open capsule. 30 capsule Discontinued(Reorder) gabapentin (Neurontin) 100 MG capsule Take 200 mg by mouth in the morning and 200 mg before bedtime.01/14/2025 02/24/2025Discontinued(Reorder) oxybutynin XL (Ditropan-XL) 10 MG 24 hr tablet Take 10 mg by mouth DailyDiscontinued Active Problems ProblemNoted DateDiagnosed DateLumbosacral axaglvhjazhiz35/18/2025 Assessment & Plan (02/24/2025 3:26 PM EST): Patient advised to return if symptoms worsen and/or persist despite treatment. Orders: gabapentin (Neurontin) 100 MG capsule; Take 2 capsules (200 mg) by mouth in the morning and 2 capsules (200 mg) before bedtime. Spondylosis of lumbar region without myelopathy or myohiavmilvqm51/18/2025 Posttraumatic stress dpneaoui45/30/2025Mixed incontinence urge and stress 01/05/2025Finger kqgeln9608/25/2024Nausea after uzhjjlidjo60/22/2025alculus of gallbladder without cholecystitis without eeotkonayby89/04/2024ifficulty sdfsnrp6409/18/2022Stiffness in joint09/18/20222622Wrtshcydkju83/30/2023llergic rcjdjein34/30/6465Tayqzki83/30/9632Eohudr97/30/2023ipolar 1 xelwxhra53/30/2023 Cerebral palsy09/04/2022astroesophageal reflux ltzwfby8109/04/2022 Assessment & Plan (02/24/2025 3:26 PM EST): Orders: famotidine (Pepcid) 40 MG tablet; Take 1 tablet (40 mg) by mouth in the morning. Assessment & Plan (02/24/2025 3:26 PM EST): Problem is stable, will continue with current treatment plan. Call or return to clinic if any changes occur Orders: esomeprazole (NexIUM) [address] capsule; Take 1 capsule (40 mg) by mouth Daily Do not open capsule. Assessment & Plan (01/06/2025 2:00 PM EDT): Should improve with the above prescribed medications. Call if not improved despite treatment. Orders: esomeprazole (NexIUM) [address] capsule; Take 1 capsule (40 mg) by mouth Daily Do not open capsule. CBC and differential; Future Comprehensive metabolic panel; Future Menorrhagia with regular cycle09/04/2022Mixed anxiety and depressive disorder 09/04/2022olycystic nzbwepd6609/04/2022 Assessment & Plan (02/24/2025 3:26 PM EST): Reviewed labs and/or imaging at today. Will continue current treatment regimen and follow up at next scheduled visit unless problems arise. Orders: Comprehensive metabolic panel; Future CBC and differential; Future metFORMIN XR (Glucophage-XR) 500 MG 24 hr tablet; Take 1 tablet (500 mg) by mouth in the evening. Take with meals Do not crush, chew, or split. Assessment & Plan (01/06/2025 2:00 PM EDT): Labs ordered today, will follow up when results available Orders: Testosterone; Future CBC and differential; Future Comprehensive metabolic panel; Future Hemoglobin A1c; Future C-peptide; Future Recurrent major depressive sfdcpemm08/30/2023 Assessment & Plan (01/06/2025 2:00 PM EDT): Problem is stable, will continue with current treatment plan. Call or return to clinic if any changes occur Orders: CBC and differential; Future Comprehensive metabolic panel; Future Reduced visual ycanvn9609/04/20220205Kgidfiymufc47/30/2023Vitamin D deficiency 09/04/2022 Encounters DateTypeDepartmentCare MpgdLsosagfcuwt17/19/2025 3:00 PM ESTOffice Visit [facility] [address] [place] [phone] Vijay Ramirez DO Polycystic ovaries (Primary Dx); Osteoarthritis, unspecified osteoarthritis type, unspecified site; Insulin resistance; Lumbosacral radiculopathy; Gastroesophageal reflux disease without esophagitis; Gastroesophageal reflux disease, unspecified whether esophagitis present 02/24/2025amboo flowsheet [facility] [address] [place] [phone] Vijay Ramirez DO 02/24/20250326Hkgjvm32/15/2025 1:30 PM EDTOffice Visit [facility] [address] [place] [phone] Latesha Esparza DPFabiana Plantar fasciitis (Primary Dx); Metatarsalgia of both feet; Tarsal coalition of left foot; Bilateral foot pain01/20/2025amboo flowsheet [facility] [address] [place] [phone] Latesha Esparza DPM 01/20/20256415Ckqwac88/13/2025Telephone [facility] [address] [place] [phone] Nabil Guzman LPN Bntxjqa7401/06/2025 1:40 PM EDTOffice Visit [facility] [address] [place] [phone] Vijay Ramirez DO Daytime somnolence (Primary Dx); Snoring; Recurrent major depressive disorder, remission status unspecified; Osteoarthritis, unspecified osteoarthritis type, unspecified site; Polycystic ovaries; Other fatigue; Gastroesophageal reflux disease without sjesqqlmqpv70/01/2025amboo [facility]sheet [facility] [address] [place] [phone] Vijay Ramirez DO 01/06/20254793Zzobyg97/23/2025Results Follow-Up [facility] [address] [place] [address] Emanuel Randolph MD NuSwab Vaginitis Plus (VG+), GENITAL MYCOPLASMAS MARY ANN, SWAB, IGP, APT HPV,RFX ,45012/24/2024 1:45 PM EDTOffice Visit [facility] [address] [place] [address] Emanuel Randolph MD Encounter for gynecological examination without abnormal finding (Primary Dx); Encounter for screening for cervical cancer; PCOS (polycystic ovarian syndrome); Menorrhagia with irregular cycle; Dysmenorrhea; Acute vaginitis; Vaginismus; High-tone pelvic floor dysfunction in female; Family history of breast cancer; Vaginitis and vulvovaginitis; Cervicitis and endocervicitis; Screening mammogram, encounter for; Fibrocystic disease of both avouvaq3312/24/20247008Jouojs07/10/2025[facility] [address] [place] [address] Emanuel Randolph MD PCOS (polycystic ovarian syndrome); Menorrhagia with irregular cycle; Rptqqlziihcl68/10/2025Refill [facility] [address] [place] [address] Emanuel Randolph MD PCOS (polycystic ovarian syndrome); Menorrhagia with irregular cycle; Dysmenorrheafrom Last 3 Months Family History Medical HistoryRelationNameCommentsDiabetesFatherDiabetesMaternal GrandmotherHTN Maternal GrandmotherBreast cancerMother's SisterCancerPaternal GrandmotherColon cancerNeg HxOvarian cancerNeg HxPancreatic cancerNeg HxRelationNameStatus XukqgdmwFbedcnf6TcyijdCzmawQrezv stentsMaternal GrandmotherMotherAliveMother's SisterPaternal GrandmotherSister4 Social History Tobacco UseTypesPacks/DayYears UsedDateSmoking Tobacco: NeverPassive Smoke Exposure: NeverSmokeless Tobacco: Never Tobacco Cessation:Counseling Given: Not Answered Alcohol UseStandard Drinks/WeekCommentsYes0 (1 standard drink = 0.6 oz pure alcohol)1-2 drinks less than monthly in the past year, Caffeine intake: 2-3 cups per day soda/popAUDIT-CAnswerDate RecordedQ1: How often do you have a drink containing alcohol?Monthly or less12/12/2023Q2: How many drinks containing alcohol do you have on a typical day when you are drinking?1 or Q3: How often do you have six or more drinks on one occasion?Less than monthly 12/12/2023HQ-2AnswerDate RecordedPatient Health Questionnaire-2 Score0 02/24/2025CommentsNoSex and Gender InformationValueDate RecordedSex Assigned at HuilrAnqiss47/30/2023 3:35 PM EDTLegal AdhSkfgmwuyr32/30/2023 3:35 PM EDTGender IdentityNot Jrabpm0209/04/2022 3:35 PM EDTSexual OrientationBisexual 09/04/2022 3:35 PM EDT Last Filed Vital Signs Vital SignReadingTime TakenCommentsBlood Wnqpnhan251/80104/26/2024 2:56 PM EST Lshkp4098 2:56 PM JMPHftllanglzz07 ??C (96.8 ??F)02/24/2025 2:56 PM EST Respiratory Qurg7901 12:28 PM EDTOxygen Klyrdxzamu81%02/24/2025 2:56 PM ESTInhaled Oxygen Concentration--Jzrivq970 kg (227 lb 9.6 oz)02/24/2025 2:56 PM GLOIkswao460.1 cm (5' 5 )02/24/2025 2:56 PM ESTBody Mass Index37.8702/24/2025 2:56 PM EST Plan of Treatment Health MaintenanceDue DateLast DoneCommentsPneumococcal Vaccine: Pediatrics (0 to 5 Years) and At-Risk Patients (6 to 64 Years) (1 of 2 - PCV)2009COVID- 19 Vaccine (3 - 2024- season)/, 09/08/2020Influenza Vaccine (#1)2024Pap Smear/ervical Cancer Raiayooul19/18/2030 HPV/Jtrlzc25/18/, 06/13/2022, 10/04/2020 Procedures Procedure NamePriorityDate/TimeAssociated DiagnosisCommentsC-PEPTIDERoutine 01/06/2025 2:08 PM EDT Polycystic ovaries HEMOGLOBIN V9JJcjgrea44/01/2025 2:08 PM EDT Polycystic ovaries COMPREHENSIVE METABOLIC DWFKLMdkubkp76/01/2025 2:08 PM EDT Daytime somnolence Snoring Recurrent major depressive disorder, remission status unspecified Osteoarthritis, unspecified osteoarthritis type, unspecified site Polycystic ovaries Other fatigue Gastroesophageal reflux disease without esophagitis CBC (INCLUDES DIFF/PLT)Zyvkalc4801/06/2025 2:08 PM EDT Daytime somnolence Snoring Recurrent major depressive disorder, remission status unspecified Osteoarthritis, unspecified osteoarthritis type, unspecified site Polycystic ovaries Other fatigue Gastroesophageal reflux disease without esophagitis TESTOSTERONE, TOTAL, MALES (ADULT), QQJllxgie86/01/2025 2:08 PM EDT Polycystic ovaries SED RATE BY MODIFIED HKJTXRJDIOCxyxuhp28/01/2025 2:08 PM EDT Osteoarthritis, unspecified osteoarthritis type, unspecified site KQQVzkqqjm40/01/2025 2:08 PM EDT Other fatigue GENITAL MYCOPLASMAS MARY ANN, HZZLYyftwjj18/18/2025 3:00 AM EDT Vaginitis and vulvovaginitis Cervicitis and endocervicitis NUSWAB VAGINITIS PLUS (VG+)Oxlxyie2112/24/2024 3:00 AM EDT Vaginitis and vulvovaginitis Cervicitis and endocervicitis IGP, APT HPV,RFX 16/18,03Yxxzvja79/18/2025 12:00 AM EDT Encounter for gynecological examination without abnormal finding Encounter for screening for cervical cancer PAP EDCZZLexpywx73/08/2023 12:00 AM ESTfrom Last 3 Months or Most Recently Relevant to Health Maintenance Results * (ABNORMAL) C-peptide (01/06/2025 2:08 PM EDT)ComponentValueRef RangeTest MethodAnalysis TimePerformed AtPathologist SignatureC-PEPTIDE, SERUM11.7(H)1.1 - 4.4 ng/mLLABCORPComment:C-Peptide reference interval is for fasting patients.Specimen (Source)Anatomical Location / LateralityCollection Method / VolumeCollection TimeReceived TimeBloodVenous blood specimen / Unknown 01/06/2025 2:08 PM EDT1 Narrative [facility] - 01/07/2025 8:08 AM EDT Performed at: 01 - [facility] [address] ??[id number] Advertising Columnist: Filipe Jo PhD, Phone: ??[phone] Authorizing ProviderResult TypeResult StatusGeorfreddy KUO BLOOD ORDERABLESFinal ResultPerforming OrganizationAddressCity/State/ZIP CodePhone Number [facility] * Sedimentation rate, automated (01/06/2025 2:08 PM EDT)ComponentValueRef Range Test MethodAnalysis TimePerformed AtPathologist SignatureSed Rate-Westergren5 mm/hrLABCORPComment: ?No patient age and/or gender provided ? or N placed in gender box ? Age ?Male ?Female ?0 - 49 years ? 0 - ??15 ?0 - ??32 >49 years 0 - 30 0 - 40 Specimen (Source)Anatomical Location / LateralityCollection Method / Volume Collection TimeReceived TimeBloodVenous blood specimen / Tnztmon2501/06/2025 2:08 PM EDT1 Narrative [facility] - 01/07/2025 11:07 AM EDT Performed at: - [facility] [address], [address], [place], [place] ??[id number] Advertising Columnist: Ge Correa MD, Phone: ??[phone] Authorizing ProviderResult TypeResult StatusGeorfreddy Ramirez DOLAB BLOOD ORDERABLESFinal ResultPerforming OrganizationAddressCity/State/ZIP CodePhone Number [facility] * CBC and differential (01/06/2025 2:08 PM EDT)ComponentValueRef RangeTest MethodAnalysis TimePerformed AtPathologist SignatureWBC6.03.4 - 10.8 x10E3/uL LABCORPRBC4.17i65A0/uLLABCORPComment: ?No patient age and/or gender provided ? or N placed in gender box ? Age ?Male ?Female ?0 - ??7 days ? 3.68 - 5.77 ?3.68 - 5.77 ?8 - 30 days ? 3.29 - 5.50 ?3.29 - 5.50 ? 31 - 90 days ? 2.72 - 4.84 ?2.72 - 4.84 ?91 days - 11 months ? 3.86 - 5.16 ?3.86 - 5.16 ?1 - ??7 years ?3.96 - 5.30 ?3.96 - 5.30 ?8 - 12 years ?3.91 - 5.45 ?3.91 - 5.45 >12 years 4.14 - 5.80 3.77 - 5.28 Hgb13.0g/dLLABCORPComment: ?No patient age and/or gender provided ? or N placed in gender box ? Age ?Male ?Female ?0 - ??7 days ? 10.7 - 20.5 ?10.7 - 20.5 ?8 - 30 days ? 10.5 - 18.7 ?10.5 - 18.7 ? 31 - 90 days ?8.8 - 14.3 ? 8.8 - 14.3 ?91 days - 11 months ? 10.4 - 14.1 ?10.4 - 14.1 ?1 - ??7 years ?10.9 - 14.8 ?10.9 - 14.8 ?8 - 12 years ?11.7 - 15.7 ?11.7 - 15.7 ? 13 - 15 years ?12.6 - 17.7 ?11.1 - 15.9 >15 years 13.0 - 17.7 11.1 - 15.9 Hct37.4%LABCORPComment: ?No patient age and/or gender provided ? or N placed in gender box ? Age ?Male ?Female ?0 - ??7 days ? 31.9 - 57.2 ?31.9 - 57.2 ?8 - 30 days ? 30.7 - 53.7 ?30.7 - 53.7 ? 31 - 90 days ? 26.6 - 41.0 ?26.6 - 41.0 ?91 days - 11 months ? 31.0 - 41.0 ?31.0 - 41.0 ?1 - ??7 years ?32.4 - 43.3 ?32.4 - 43.3 ?8 - 12 years ?34.8 - 45.8 ?34.8 - 45.8 >12 years 37.5 - 51.0 34.0 - 46.6 VNL49oHYCYSNBXPwqlfhg: ?No patient age and/or gender provided ? or N placed in gender box ? Age ?Male ?Female ?0 - ??7 days ? 79 - 110 ? 79 - 110 ?8 - 30 days ? 81 - 109 ? 81 - 109 ? 31 - 90 days ? 81 - ??97 ? 81 - ??97 ?91 days - 11 months ? 73 - ??87 ? 73 - ??87 ?1 - ??7 years ?75 - ??89 ? 75 - ??89 ?8 - 12 years ?77 - ??91 ? 77 - ??91 >12 years 79 - 97 79 - 97 MCH29.3pgLABCORPComment: ?No patient age and/or gender provided ? or N placed in gender box ? Age ?Male ?Female ?0 - ??7 days ? 26.1 - 38.7 ?26.1 - 38.7 ?8 - 30 days ? 27.5 - 37.6 ?27.5 - 37.6 ? 31 - 90 days ? 27.1 - 34.0 ?27.1 - 34.0 ?91 days - 11 months ? 24.2 - 30.1 ?24.2 - 30.1 ?1 - ??7 years ?24.6 - 30.7 ?24.6 - 30.7 ?8 - 12 years ?25.7 - 31.5 ?25.7 - 31.5 >12 years 26.6 - 33.0 26.6 - 33.0 MCHC34.8g/dLLABCORPComment: ?No patient age and/or gender provided ? or N placed in gender box ? Age ?Male ?Female ?0 - ??7 days ? 31.9 - 36.8 ?31.9 - 36.8 ?8 - 30 days ? 32.0 - 36.4 ?32.0 - 36.4 ? 31 - 90 days ? 31.9 - 36.0 ?31.9 - 36.0 ?91 days - 11 months ? 31.5 - 36.0 ?31.5 - 36.0 ?1 - 12 years ?31.7 - 36.0 ?31.7 - 36.0 >12 years 31.5 - 35.7 31.5 - 35.7 RDW12.9%[facility]PComment: ?No patient age and/or gender provided ? or N placed in gender box ? Age ?Male ?Female ? All ages ? 11.6 - 15.4 ?11.7 - 15.4 Zalbsnfyt839083 - 450 x10E3/qZBNRLUKVWcjfmfcqnmo68Sjx Estab. %JIAVAQSXquaml29Qlu Estab. %AYSFTQHUrpjbajyz9Aur Estab. %WZJSMPZBly0Zom Estab. %WTJDZGOHwpdz2Dac Estab. %LABCORPNeutrophils Abs2.4x10E3/uLLABCORPComment: ?No patient age and/or gender provided ? or N placed in gender box ? Age ?Male ?Female ?0 - ??7 days ?1.2 - ??6.1 ? 1.2 - ??6.1 ?8 - 30 days ?1.2 - ??4.8 ? 1.2 - ??4.8 ? 31 - 90 days ?0.8 - ??3.8 ? 0.8 - ??3.8 ?91 days - 11 months ?1.0 - ??4.0 ? 1.0 - ??4.0 ?1 - ??7 years ? 0.9 - ??5.4 ? 0.9 - ??5.4 ?8 - 12 years ? 1.2 - ??6.0 ? 1.2 - ??6.0 >12 years 1.4 - 7.0 1.4 - 7.0 Lymphs Abs2.7x10E3/uLLABCORPComment: ?No patient age and/or gender provided ? or N placed in gender box ? Age ?Male ?Female ?0 - ??7 days ?0.9 - ??5.0 ? 0.9 - ??5.0 ?8 - 30 days ?0.9 - ??9.1 ? 0.9 - ??9.1 ? 31 - 90 days ?1.2 - ??9.2 ? 1.2 - ??9.2 ?91 days - 11 months ?2.9 - ??9.5 ? 2.9 - ??9.5 ?1 - ??7 years ? 1.6 - ??5.9 ? 1.6 - ??5.9 ?8 - 12 years ? 1.3 - ??3.7 ? 1.3 - ??3.7 >12 years 0.7 - 3.1 0.7 - 3.1 MonocytesAbs0.5x10E3/uLLABCORPComment: ?No patient age and/or gender provided ? or N placed in gender box ? Age ?Male ?Female ?0 - ??7 days ?0.2 - ??1.3 ? 0.2 - ??1.3 ?8 - 30 days ?0.1 - ??1.6 ? 0.1 - ??1.6 ? 31 - 90 days ?0.2 - ??1.2 ? 0.2 - ??1.2 ?91 days - 11 months ?0.2 - ??1.1 ? 0.2 - ??1.1 ?1 - ??7 years ? 0.2 - ??1.0 ? 0.2 - ??1.0 ?8 - 12 years ? 0.1 - ??0.8 ? 0.1 - ??0.8 >12 years 0.1 - 0.9 0.1 - 0.9 Eos Abs0.4x10E3/uLLABCORPComment: ?No patient age and/or gender provided ? or N placed in gender box ? Age ?Male ?Female ?0 - ??7 days ?0.0 - ??0.6 ? 0.0 - ??0.6 ?8 - 30 days ?0.0 - ??0.7 ? 0.0 - ??0.7 ?31 days - 11 months ?0.0 - ??0.4 ? 0.0 - ??0.4 ?1 - ??7 years ? 0.0 - ??0.3 ? 0.0 - ??0.3 >7 years 0.0 - 0.4 0.0 - 0.4 Baso Abs0.1x10E3/uLLABCORPComment: ?No patient age and/or gender provided ? or N placed in gender box ? Age ?Male ?Female ?0 - ??7 days ?0.0 - ??0.6 ? 0.0 - ??0.6 ? 8 days - 11 months ?0.0 - ??0.4 ? 0.0 - ??0.4 ?1 - 17 years ? 0.0 - ??0.3 ? 0.0 - ??0.3 >17 years 0.0 - 0.2 0.0 - 0.2 Immature Kdcklakodfkf8Ldh Estab. %LABCORPImmature Grans Abs0.0x10E3/u[facility] Comment: ?No patient age and/or gender provided ? or N placed in gender box ? Age ?Male ?Female ?0 - 30 days ?Not Estab. ? Not Estab. >30 days 0.0 - 0.1 0.0 - 0.1 Specimen (Source)Anatomical Location / LateralityCollection Method / Volume Collection TimeReceived TimeBloodVenous blood specimen / Bfkrokd4401/06/2025 2:08 PM EDT1 Narrative [facility] - 01/07/2025 11:07 AM EDT Performed at: [facility] [address], [address], [place], [place] ??[id number] Advertising Columnist: Ge Correa MD, Phone: ??[phone] Authorizing ProviderResult TypeResult StatusGeorfreddy Ramirez DOLAB BLOOD ORDERABLESFinal ResultPerforming OrganizationAddressty/State/ZIP CodePhone Number [facility] * TSH (01/06/2025 2:08 PM EDT)ComponentValueRef RangeTest MethodAnalysis Time Performed AtPathologist SignatureTSH2.0900.450 - 4.500 uIU/mLLABCORPSpecimen (Source)Anatomical Location / LateralityCollection Method / VolumeCollection TimeReceived TimeBloodVenous blood specimen / Dkijsvz3101/06/2025 2:08 PM EDT 01/06/2025 Narrative [facility] - 01/07/2025 11:07 AM EDT Performed at: - [facility] [address] [facility], [address], [place], [place] ??[id number] Advertising Columnist: Ge Correa MD, Phone: ??[phone] Authorizing ProviderResult TypeResult StatusGeorfreddy MUELLERAB BLOOD ORDERABLESFinal ResultPerforming OrganizationAddKindred Hospital Philadelphiaty/State/ZIP CodePhone Number [facility] * Testosterone (01/06/2025 2:08 PM EDT)ComponentValueRef RangeTest Method Analysis TimePerformed AtPathologist ZhhmlflmbXDTFCOAOYFEP00yw/dLLABC[facility]P Comment: ?No patient age and/or gender provided ? or N placed in gender box ? Age ?Male ?Female ?0 - 30 days ?0 - 650 ?4 - 190 ?1 - ??5 months ?0 - 650 ?0 - ??42 ? 6 months ?0 - ??36 ?0 - ??42 ?7m- ??1 year ?0 - ??36 ?1 - ??26 ?2 - ??5 years ? 0 - ??36 ?3 - ??33 ?6 - ??8 years ? 0 - ??36 ?3 - ??25 ?9 - 10 years ? 0 - ??21 ?1 - ??33 ?11 years ? 1 - 161 ?5 - ??58 ?12 years ? 2 - 521 ?5 - ??58 ? 13 - 15 years ?28 - 656 ? 12 - ??71 ? 16 - 17 years ? 150 - 785 ? 12 - ??71 ? 18 - 19 years ? 150 - 785 ? 13 - ??71 ? 20 - 30 years ? 264 - 916 ? 13 - ??71 ? 31 - 40 years ? 264 - 916 ?8 - ??60 ? 41 - 60 years ? 264 - 916 ?4 - ??50 ? 61 - 80 years ? 264 - 916 ?3 - ??67 >80 years 264 - 916 2 - 45 ?Adult male reference interval is based on a population of healthy nonobese males (BMI <30) ?between 19 and 39 years old. Kaiser et al. ?JCEM 2017,102;4225-2592. PMID: [id number]. Specimen (Source)Anatomical Location / LateralityCollection Method / Volume Collection TimeReceived TimeBloodVenous blood specimen / Jvotfoe4501/06/2025 2:08 PM EDT1 Narrative [facility] - 01/07/2025 11:07 AM EDT Performed at: [facility] ??[id number] Advertising Columnist: Filipe Jo PhD, Phone: ??[phone] Authorizing ProviderResult TypeResult StatusGeorfreddy Ramirez Interventional Imaging BLOOD ORDERABLESFinal ResultPerforming OrganizationAddressty/[facility]/ZIP CodePhone Number [facility] * Hemoglobin A1c (01/06/2025 2:08 PM EDT)ComponentValueRef RangeTest Method Analysis TimePerformed AtPathologist DqcyvqfrnLreH8F8.14.8 - 5.6 %[facility] Comment: ? Prediabetes: 5.7 - 6.4 Diabetes: >6.4 Glycemic control for adults with diabetes: <7.0 Specimen (Source)Anatomical Location / LateralityCollection Method / Volume Collection TimeReceived TimeBloodVenous blood specimen / Pbbvwwb1201/06/2025 2:08 PM EDT1 Narrative [facility] - 01/07/2025 11:07 AM EDT Performed at: - [facility] ??[id number] Advertising Columnist: Filipe Jo PhD, Phone: ??[phone] Authorizing ProviderResult TypeResult StatusGeorfreddy Hunter Tonjahalie DOL BLOOD ORDERABLESFinal ResultPerforming OrganizationAddressty/[facility]/ZIP CodePhone Number [facility] * Comprehensive metabolic panel (01/06/2025 2:08 PM EDT)ComponentValueRef Range Test MethodAnalysis TimePerformed AtPathologist WbqpxcexmBleesgq4002 - 99 mg/eIMXGBZLJKJR1tj/dLLABCORPComment: ?No patient age and/or gender provided ? or N placed in gender box ? Age ?Male ?Female ?0 - 11 months ?3 - 18 ? 3 - 18 ?1 - 17 years ? 5 - 18 ? 5 - 18 ? 18 - 39 years ? 6 - 20 ? 6 - 20 ? 40 - 59 years ? 6 - 24 ? 6 - 24 ? 60 - 89 years ? 8 - 27 ? 8 - 27 >89 years 10 - 36 10 - 36 Creat1.03mg/dLLABCORPComment: ?No patient age and/or gender provided ? or N placed in gender box ? Age ?Male ?Female ?0 - 60 days ?.44 - 1.19 ? .44 - 1.19 ?61 days - 11 months ?.17 - 1.18 ? .17 - 1.18 ?1 - ??2 years ? .19 - ??.42 ? .19 - ??.42 ?3 - ??4 years ? .26 - ??.51 ? .26 - ??.51 ?5 - ??6 years ? .30 - ??.59 ? .30 - ??.59 ?7 - ??8 years ? .37 - ??.62 ? .37 - ??.62 ?9 - 10 years ? .39 - ??.70 ? .39 - ??.70 ? 11 - 12 years ? .42 - ??.75 ? .42 - ??.75 ? 13 - 14 years ? .49 - ??.90 ? .49 - ??.90 >14 years .76 - 1.27 .57 - 1.00 EGFRCANCELEDmL/min/1.73LABCORPComment: Unable to calculate GFR. ??Age and/or gender not provided or age <18 years old. Result canceled by the ancillary. BUN/Creat Wgxpz5OZZTHICMhcyrhi: ?No patient age and/or gender provided ? or N placed in gender box ? Age ?Male ?Female ?? 0 days ?? - ??7 days ?9 - 25 ? 9 - 26 ?? 8 days ?? - 30 days ?8 - 32 ?10 - 33 ?? 1 month ??- ??6 months ? 11 - 57 ?11 - 54 ?? 7 months - ??1 year ? 20 - 71 ?20 - 71 ?? 2 years ??- ??5 years ?19 - 51 ?19 - 49 ?? 6 years ??- 12 years ?14 - 34 ?13 - 32 ??13 years ??- 17 years ?10 - 22 ?10 - 22 ??18 years ??- 59 years ? 9 - 20 ? 9 - 23 >59 years 10 - 12 - 28 Jdcdci328694 - 144 mmol/LLABCORPPotassium4.43.5 - 5.2 mmol/LLABCORPComment: Specimen was hemolyzed. Result may be adversely affected.Culayfsh82678 - 106 mmol/LLABCORPCarbon Kolkvlg9677 - 29 mmol/LLABCORPCalcium9.9mg/dLLABCORPComment: ?No patient age and/or gender provided ? or N placed in gender box ? Age ?Male ?Female ?0 - 10 days ?8.6 - 10.4 ? 8.6 - 10.4 ?11 days - ??1 year ?9.2 - 11.0 ? 9.2 - 11.0 ?2 - 11 years ? 9.1 - 10.5 ? 9.1 - 10.5 ? 12 - 17 years ? 8.9 - 10.4 ? 8.9 - 10.4 ? 18 - 59 years ? 8.7 - 10.2 ? 8.7 - 10.2 >59 years 8.6 - 10.2 8.7 - 10.3 Protein Total7.16.0 - 8.5 g/dLLABCORPAlbumin4.6g/dLLABCORPComment: ?No patient age and/or gender provided ? or N placed in gender box ? Age ?Male ?Female ?0 - ?? 7 days ? 3.6 - 4.9 ?3.6 - 4.9 ?8 - ??30 days ? 3.5 - 4.6 ?3.5 - 4.6 ?1 - ?? 6 months ? 3.7 - 4.8 ?3.7 - 4.8 ?? 7 months - ?? 2 years ?4.0 - 5.0 ?4.0 - 5.0 ?3 - ?? 5 years ?4.1 - 5.0 ?4.1 - 5.0 ?6 - ??12 years ?4.2 - 5.0 ?4.2 - 5.0 ? 13 - ??30 years ?4.3 - 5.2 ?4.0 - 5.0 ? 31 - ??50 years ?4.1 - 5.1 ?3.9 - 4.9 ? 51 - ??60 years ?3.8 - 4.9 ?3.8 - 4.9 ? 61 - ??70 years ?3.9 - 4.9 ?3.9 - 4.9 ? 71 - ??80 years ?3.8 - 4.8 ?3.8 - 4.8 ? 81 - ??89 years ?3.7 - 4.7 ?3.7 - 4.7 ? 90 - 199 years ?3.6 - 4.6 ?3.6 - 4.6 Globulin Total2.51.5 - 4.5 g/dLLABCORPBili Total0.30.0 - 1.2 mg/dLLABCORPAlk Dhveaakprtz50717 - 129 IU/FJVZRPAUXAC1788 - 59 IU/LLABCORPComment:Specimen was hemolyzed. Result may be adversely affected.MHI79QH/LLABCORPComment: ?No patient age and/or gender provided ? or N placed in gender box ?Age ? Male ? Female 0 years - ??11 years ? 0 - 29 ?0 - 28 12 years - ??17 years ? 0 - 30 ?0 - 24 18 years - 100 years ? 0 - 50 ?0 - 35 Specimen (Source)Anatomical Location / LateralityCollection Method / Volume Collection TimeReceived TimeBloodVenous blood specimen / Hznbrcs2401/06/2025 2:08 PM EDT1 Narrative [facility] - 01/07/2025 11:07 AM EDT Performed at: [facility] - [facility] [address], [address], [place], [place] ??[id number] Advertising Columnist: Ge Correa MD, Phone: ??[phone] Authorizing ProviderResult TypeResult StatusGeelvin Ramirez DOLAB BLOOD ORDERABLESEdited Result - FinalPerforming OrganizationAddKindred Hospital Philadelphiaty/State/ZIP Code Phone Number [facility] * GENITAL MYCOPLASMAS MARY ANN, SWAB (12/24/2024 3:00 AM EDT)ComponentValueRef Range Test MethodAnalysis TimePerformed AtPathologist SignatureMYCOPLASMA GENITALIUM NegativeNegativeLABCORPMYCOPLASMA HOMINISNegativeNegativeLABCORPUREAPLASMA SPP NegativeNegativeLABCORPSpecimen (Source)Anatomical Location / Laterality Collection Method / VolumeCollection TimeReceived TimeVaginal Fluid12/24/2024 3:00 AM EDT12/25/2024 Narrative [facility] - 12/29/2024 3:07 PM EDT Test(s) 977198-Xbxfwvzrxg hominis MARY ANN; 319099-Fxcbxjgdux spp MARY ANN was developed and its performance characteristics determined by [facility]. It has not been cleared or approved by the Food and Drug Administration. Performed at: ??01 - Lab[address] ??[id number] Advertising Columnist: Mark Bhardwaj MD, Phone: ??[phone] Authorizing ProviderResult TypeResult StatusEmanuel Randolph MDLAB CYTOLOGY ORDERABLESFinal ResultPerforming OrganizationAddKindred Hospital Philadelphiaty/[facility] CodePhone Number [facility] * NuSwab Vaginitis Plus (VG+) (12/24/2024 3:00 AM EDT)ComponentValueRef Range Test MethodAnalysis TimePerformed AtPathologist SignatureAtopobium VaginaeLow - 0ScoreLABCORPBVAB 2Low - 0ScoreLABCORPMegasphaera 1Low - 0ScoreLABCORP Comment: Calculate total score by adding the 3 individual bacterial vaginosis (BV) marker scores together. ??Total score is interpreted as follows: Total score 0-1: Indicates the absence of BV. Total score ?? 2: Indeterminate for BV. Additional clinical ? data should be evaluated to establish a ? diagnosis. Total score 3-6: Indicates the presence of BV. Macarena Albicans, NAANegativeNegativeLABCORPCandida Glabrata, NAANegative NegativeLABCORPTrich Vag By NAANegativeNegativeLABCORPChlamydia Trachomatis, MARY ANN NegativeNegativeLABCORPNeisseria Gonorrhoeae, NAANegativeNegativeLABCORPSpecimen (Source)Anatomical Location / LateralityCollection Method / VolumeCollection TimeReceived TimeVaginal Fluid12/24/2024 3:00 AM EDT12/25/2024 Narrative [facility] - 12/29/2024 3:07 PM EDT Test(s) 110520- Atopobium vaginae; 226554- BVAB 2; 644411- ?Megasphaera 1 was developed and its performance characteristics determined by [facility]. It has not been cleared or approved by the Food and Drug Administration. Test(s) 596424-Aicaobq albicans, MARY ANN; 817163-Ckvcgtn glabrata, MARY ANN was developed and its performance characteristics determined by [facility]. It has not been cleared or approved by the Food and Drug Administration. Performed at: ??01 - [facility] ??[id number] Advertising Columnist: Mark Bhardwaj MD, Phone: ??[phone] Authorizing ProviderResult TypeResult StatusEmanuel SOLANO MICROBIOLOGY - GENERAL ORDERABLESFinal ResultPerforming OrganizationAddressCity/State/ZIP Code Phone Number [facility] * IGP, APT HPV,RFX 16/18,45 (12/24/2024 12:00 AM EDT)ComponentValueRef RangeTest MethodAnalysis TimePerformed AtPathologist SignatureDiagnosis:CommentLABCORP Comment:NEGATIVE FOR INTRAEPITHELIAL LESION OR MALIGNANCY.Specimen Adequacy: CommentLABCORPComment: Satisfactory for evaluation. ??Endocervical and/or squamous metaplastic cells (endocervical component) are present. Clinician Provided ICD10:CommentLABCORPComment: Z01.419 Z12.4 Performed By:CommentLABCORPComment:Eileen Robles, Greeting Card Editor (ASCP)Cyto Comments. LABCORPNote:CommentLABCORPComment: The Pap smear is a screening test designed to aid in the detection of premalignant and malignant conditions of the uterine cervix. ??It is not a diagnostic procedure and should not be used as the sole means of detecting cervical cancer. ??Both false-positive and false-negative reports do occur. Test Methodology:CommentLABCORPComment: This liquid based ThinPrep(R) pap test was screened with the use of an image guided system. HPV AptimaNegativeNegativeLABCORPComment: This nucleic acid amplification test detects fourteen high-risk HPV types (16,18,31,33,35,39,45,51,52,56,58,59,66,68) without differentiation. Specimen (Source)Anatomical Location / LateralityCollection Method / Volume Collection TimeReceived TimeVaginal Fluid/ Narrative [facility] - 12/30/2024 11:07 AM EDT Performed at: 01 - [facility] ??[id number] Advertising Columnist: Nicole Nunez MD, Phone: ??[phone] Performed at: ??02 - [facility] ??[id number] Advertising Columnist: Nicole Nunez MD, Phone: ??[phone] Specimen Comment: No. of containers..01 ThinPrep Vial Authorizing ProviderResult TypeResult StatusEmanuel SOLANO BLOOD ORDERABLESFinal ResultPerforming OrganizationAddressCity/State/ZIP CodePhone Number [facility] * Pap Smear (06/13/2022 12:00 AM EST)Specimen (Source)Anatomical Location / LateralityCollection Method / VolumeCollection TimeReceived TimeSwab Narrative Authorizing ProviderResult TypeResult StatusHistorical Provider RUSS CYTOLOGY ORDERABLESFinal ResultPerforming OrganizationAddressCity/State/ZIP CodePhone Number [facility] from Last 3 Months or Most Recently Relevant to Health Maintenance Insurance * Guarantor: Saida Dawn EAccount TypeRelation to PatientDate of BirthPhone Billing AddressPersonal/MnfhaxUlwa63/08/1991 [facility] [address] [address] [id number] * Guarantor: Saida Dawn EAccount TypeRelation to PatientDate of BirthPhone Billing AddressWorkers ObnrZojj55/08/1991 [address] [id number] Care Teams Team MemberRelationshipSpecialtyStart DateEnd Date Vijay Ramirez DO [address] [facility] [address] [place] [address] [facility] - [facility] Vijay Ramirez DO [address] [place] [address] PCP - [facility]10/07/23 Praful Dale DO [address] [place] [address] Referring PhysicianNeurology2 Elise Harley NP [address] [place], [place] [id number] Nurse PractitionerNeurology07/30/24
[2025-03-01 07:37] VITALS: BP 124/77; PULSE 74; TEMP 36.2; O2SAT 96
[2025-03-01 08:40] VITALS: BP 145/87; PULSE 65; O2SAT 97
[2025-03-01] MEDS: LIDOCAINE HCL 2% 400 MG/20 ML MDV 3 ML INJ (08:41)
[2025-03-01] MEDS: BUPIVACAINE HCL 0.25% PF 25 MG/10 ML VIAL INJ (08:42)
[2025-03-01] MEDS: METHYLPREDNISOLONE ACETATE 80 MG/ML VIAL INJ (08:42)
[2025-03-01] MEDS: 0.9 % SODIUM CHLORIDE 10 ML SYRINGE - SALINE FLUSH INJ (08:42)
[2025-03-01 08:43] VITALS: BP 138/70; PULSE 71; O2SAT 96
[2025-03-01] MEDS: IOHEXOL 240 MG/ML - 10 ML VIAL INJ (08:43)
--- NOTE | 2025-03-01 08:45 | W.PM.PROCNOT ---
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 Informed consent was obtained and placed on the chart.? Patient was brought to the medical procedure unit and placed in the prone position where a timeout was completed verifying the correct patient, procedure site, position, and planned special equipment using sterile aseptic technique.? Under direct fluoroscopic visualization a 25-gauge Quincke tipped spinal needle was advanced at level left L5-S1 to the designated neural foramen where contrast dye was injected to show adequate spread.? There was no evidence of vascular or adverse uptake.? Epidural spread was appreciated.? The above-mentioned injectate was then placed in a 1.5 mL aliquot preceded by negative aspiration.? The needle was removed. The same procedure, at the same level, was completed on the opposite side. ? Patient was taken to the postprocedural recovery area and monitored for an appropriate length of time before found suitable for discharge in the accompaniment of a responsible adult. Anesthesia: Local Surgeon: Alejandro Apple Pathology: none sent Condition: stable Disposition: no change
== END 2025-03-01 08:48 | disposition home or self-care (01) ==
PROVIDERS: PCP Family Medicine; Visit Provider Anesthesiology
DX: M48.062 Spinal stenosis, lumbar region with neurogenic claudication (principal); M54.50 Low back pain, unspecified; G89.29 Other chronic pain
CPT/HCPCS: 64483; J0665; J1010; Q9966

== ENCOUNTER 2025-03-11 13:02 | Outpatient (OUT) | payer OTHER, SELFPAY ==
--- OUTSIDE RECORDS SUMMARY | 2025-03-11 13:08 | XMS_ITS | CCD ---
Author Organization [facility] Care Team Providers Care Partner Marketing Manager Name Role Phone DO Janneth Ramirez Primary Care Provider MD Sonido Eaton Attending Provider DO Janneth Ramirez Primary Care Provider MD Sonido Eaton Attending Provider WILL Gregory Emergency Provider DO Janneth Ramirez Primary Care Provider DO Carolyn Dale Attending Provider DO Janneth Ramirez Primary Care Provider MD Billy Eaton Attending Provider ROMAN Miles Emergency Provider DO Janneth Ramirez Primary Care Provider [phone] MD Billy Eaton Attending Provider MD Louie Nevarez Emergency Provider Janneth Ramirez DO Primary Care Provider Zhao Juárez DO Attending Provider Billy Eaton MD Attending Provider Billy Eaton MD Attending Provider Janneth Ramirez DO Primary Care Provider Billy Eaton MD Attending Provider Talha Miles APRNothy Emergency Provider Livia RAMIREZ Primary Care Physician [phone] Janneth Ramirez DO Primary Care Provider Billy Eaton MD Attending Provider [phone] [employer]ICE CARE SALES CONSULTANT-MACHINE SAND MIXER-C, Elise Burnham Attending Provider Ginger OWENS, Richie Emergency Provider Earlene Verduzco Attending Provider Unavailable Janneth Ramirez DO Primary Care Provider [phone] [employer] HOSPICE CARE SALES CONSULTANT-MACHINE SAND MIXER-C, Elise Burnham Attending Provider Billy Eaton MD Attending Provider Theo Cerna MD Attending Provider ALBERTO RAMIREZ Primary Care Physician [phone] Jacklyn Rivera Attending Unavailable Jacklyn Rivera Attending Unavailable PAU VO Attending Unavailable DELATORREELISE D Referring Unavailable PAU VO Attending Unavailable Jacklyn Rivera Attending Unavailable DELATORRE, ELISE Referring Unavailable PAU VO Attending Unavailable ELISE DELATORRE Attending Unavailable ZHAO JUÁREZ Attending Unavailable CAROLYN DALE Attending Unavailable ELISE DELATORRE Attending Unavailable ALBERTO RAMIREZ Attending Unavailable JAREN SHAFFER Attending Unavailable ALBERTO RAMIREZ Attending Unavailable ZHAO JUÁREZ Attending Unavailable ALBERTO RAMIREZ Referring Unavailable OTF CARTWRIGHT Attending Unavailable SIENNA DERAS Attending Unavailable JESSENIA PAULA Attending Unavailable ALBERTO RAMIREZ Attending Unavailable MARGARET LEACH Attending Unavailable Janneth Ramirez Primary Care Unavailable Zhao Juárez Admitting Unavailable Zhao Juárez Attending Unavailable Richie Miles Attending Unavailable Janneth Ramirez Primary Care Unavailable Richie Miles Admitting Unavailable Janneth Ramirez Primary Care Unavailable Elise Delatorre Admitting Unavailable Elise Delatorre E Attending Unavailable Janneth Ramirez Primary Care Unavailable Itzkowitz, Zhao Admitting Unavailable Zhao Juárez Attending Unavailable Janneth Ramirez Primary Care Unavailable Billy Eaton Admitting Unavailab Billy Luis Attending Unavailab Janneth Daniel Primary Care Unavailable Itromán, Zhao Admitting Unavailable Zhao Juárez Attending Unavailable Allergies Allergy ClassificationReported Allergen(s)Allergy TypeDate of OnsetReaction(s) Facility (15 sources)Sulfamethoxazole; Translations: [sulfamethoxazole]Drug Allergy 23-63-5152QaembOipzyvkgjSelect [facility] (15 sources)Trimethoprim; Translations: [trimethoprim]Drug Ohfsuce47-21-4040 [facility] (12 sources)Latex; Translations: [Latex]Allergy to ppcwrscyh78-35-7038Iihelsm (qualifier value)[facility] (12 sources)Morphine; Translations: [Morphine]Drug Szwfpuj09-81-1244Vtkolyl (qualifier value)[facility] (4 sources)Sulfonamide; Translations: [sulfa drugs]Drug allergyUnknown (qualifier value)[facility] Medications Current Medications MedicationDrug Class(es)DatesSig (Normalized)Sig (Original)[id number] 200 actuat albuterol 0.09 mg/actuat metered dose inhaler (7 sources)beta2-Adrenergic AgonistStart: 12-55-3904rsmi 1 puff(s) by inhalation every four to six hours as needed for wheezingAlbuterol Sulfate 90 mcg/actuation HFA aerosol inhaler Active 2 PUFF INHALATION EVERY 4-6 HOURS as needed for shortness of breath or wheezing March 19, 2024 1:00am Complies with drug therapyAlbuterol (Eqv-Ventolin HFA) 90 mcg/inh inhalation aerosol (3 sources)Start: 54-20-1750Phdaxmgab (Eqv-Ventolin HFA) 90 mcg/inh inhalation aerosol 2 inh, Refill(s) 0 Start Date: 06/25/24 Status: Ordered Repeat number: 1 baclofen 5 mg oral tablet (10 sources)gamma-Aminobutyric Acid-ergic AgonistStart: 80-66-9998lpmwogoo 5 mg oral tablet 5 mg = 1 tab(s), Refills(s) 0 Start Date: 06/25/24 Status: Ordered Repeat number: 124 hr buPROPion hydrochloride 300 mg extended release oral tablet (9 sources)AminoketoneStart: 34-56-0423mqsm 1 tablet by mouth once daily in the morningBupropion Hcl 300 mg tablet extended release 24 hr Active 300 MG PO Every morning August 31, 2023 12:00am Complies with drug therapyStart: 08-31-2023 Bupropion Hcl Active MG PO August 31, 2023 12:00amBuPROPion (Eqv-Wellbutrin SR) 150 mg/12 hours oral tablet, extended release (3 sources)Start: 55-62-8899FiMSMBjmh (Eqv-Wellbutrin SR) 150 mg/12 hours oral tablet, extended release 150 mg = 1 tab(s), Refills(s) 0 Start Date: 06/25/24 Status: Ordered Repeat number: 1cholecalciferol 0.05 mg oral capsule (9 sources)Vitamin DStart: 40-11-2568xfwc 1 capsule by mouth once daily Cholecalciferol [...] [Lo Loestrin Fe 28 Day] (15 sources)EstrogenStart: 21-39-0488gyzw 1 tablet by mouth once daily, then take 1 tablet by mouth once dailyLo Loestrin Fe oral tablet 1 tab(s), Oral, Daily, TAKE 1 TABLET BY MOUTH DAILY CONTINUOUSLY Start Date: 01/14/25 Status: Ordered Repeat number: 1Start: 54-37-5766wugb 1 tablet by mouth once daily Norethindrone-E.Estradiol-Iron (Lo Loestrin Fe) 1 mg-10 mcg (24)/10 mcg (2) tablet Active 1 TAB PO Daily April 24, 2021 5:34pmStart: 30-27-1541tcua 1 tablet by mouth once daily at bedtimeStart: 01-33-5196qdwe 1 tablet by mouth once daily at bedtimeNorethindrone-E.Estradiol-Iron (Lo Loestrin Fe) 1 mg-10 mcg (24)/10 mcg (2) tablet Active 1 TAB PO Daily at bedtime April 24, 2021 1:00am Complies with drug therapyStart: 78-15-5427ensl 1 tablet by mouth once daily at bedtimeNorethindrone-E.Estradiol-Iron (Lo Loestrin Fe) 1 mg-10 mcg (24)/10 mcg (2) tablet Active 1 TAB PO Daily at bedtime April 24, 2021 1:00amStart: 85-59-0460mryq 1 tablet by mouth once daily at bedtime Norethindrone-E.Estradiol-Iron (Lo Loestrin Fe) 1 mg-10 mcg (24)/10 mcg (2) tablet Active 1 TAB PO Daily at bedtime April 24, 2021 12:00amStart: 70-61-3785xlwm 1 tablet by mouth once dailyNorethindrone-E.Estradiol-Iron (Lo Loestrin Fe) 1 mg-10 mcg (24)/10 mcg (2) tablet Active 1 TAB PO Daily April 24, 2021 1:00amfamotidine 40 mg oral tablet (12 sources)Histamine-2 Receptor AntagonistStart: 21-69-9423mqsaiyfsjh 40 mg Tab 40 mg = 1 tab(s), Refills(s) 0 Start Date: 06/25/24 Status: Ordered Repeat numbe r: 1Start: 81-72-0172Gzeojofmve Active MG TABLET August 31, 2023 12:00am hydrOXYzine pamoate 25 mg oral capsule (17 sources)AntihistamineStart: 44-49-8713ozepXCHcdic pamoate 25 mg Cap 25 mg = 1 cap(s), Refills(s) 0 Start Date: 06/25/24 Status: Ordered Repeat number: 1 Start: 62-07-0816evfq 1 capsule by mouth every six hours as needed for anxiety Hydroxyzine Pamoate 50 mg Capsule Active 50 MG PO Q6H as needed for Anxiety 30 15 April 28, 2021 1:00am Complies with drug therapyibuprofen 600 mg oral tablet (10 sources)Nonsteroidal Anti-inflammatory DrugStart: 47-08-8143nklh 1 tablet by mouth four times daily as neededIbuprofen 600 mg tablet Active 600 MG PO Four times daily as needed January 13, 2025 12:00am Complies with drug therapyStart: 08-31-2023 End: 47-46-0134olgh 1 tablet by mouth three times daily as needed for pain Ibuprofen 800 mg tablet Discontinued 800 MG PO Three times daily as needed for fever or pain 2023 12:00am August 16, 2024 4:26pmlamoTRIgine 150 mg oral tablet (20 sources)Mood Stabilizer, Anti-epileptic AgentStart: 91-92-8014rfmugdywnuz 150 mg Tab 150 mg = 1 tab(s), Refills(s) 0 Start Date: 06/25/24 Status: Ordered Repeat number: 1Start: 05-10-9401jrqw 1 tablet by mouth once daily at bedtime Lamotrigine 200 mg tablet Active 200 MG PO Daily at bedtime March 19, 2024 1:00am Complies with drug therapyStart: 08-31-2023 End: 32-42-6087ualg 1 tablet by mouth once dailyLamotrigine 100 mg tablet Discontinued 100 MG PO Daily August 31, 2023 12:00am March 19, 2024 12:54pm Start: 48-50-9131Ouagcvhjhhv Active MG TABLET August 31, 2023 12:00amStart: 04-28-2021 End: 10-83-3706oxwc 1 tablet by mouth once dailyLamotrigine 25 mg Tablet Discontinued 25 MG PO Daily April 28, 2021 1:00am August 31, 2023 12:25pmmelatonin 10 mg oral capsule (3 sources)Start: 97-51-8898lzjr 1 capsule by mouth once daily at bedtime melatonin 10 mg oral capsule 10 mg = 1 cap(s), Oral, Once a day (at bedtime), Refills(s) 0 Start Date: 06/25/24 Status: Ordered Repeat number: 124 hr oxybutynin chloride 10 mg extended release oral tablet (7 sources)Cholinergic Muscarinic AntagonistStart: 01-14-2025 End: 62-46-0971oeov 1 tablet by mouth once dailyoxybutynin 10 mg ER Tab 10 mg = 1 tab(s), Oral, Daily, X 30 day(s), # 30 tab(s), Refills(s) 6, Pharmacy: [facility]/pharmacy #[id number], 165, cm, 01/14/25 10:35:00 EDT, Height/Length Dosing, 99.4, kg, 01/14/25 10:35:00 EDT, Weight Dosing Start Date: 01/14/25 Stop Date: 08/12/25 Status: Ordered Quantity: 30.0 Unit: tab(s) Repeat number: 7 Indications: Mixed incontinence;Start: 08-16-2024 End: 55-72-5357ntne 1 tablet by mouth once dailyOxybutynin Chloride 15 mg tablet extended release 24hr Active 15 MG PO Daily August 16, 2024 12:00amComplies with drug therapyprazosin 2 mg oral capsule (20 sources)alpha-Adrenergic BlockerStart: 59-28-3917vxbyjgcf 2 mg oral capsule 2 mg = 1 cap(s), Refills(s) 0 Start Date: 06/25/24 Status: Ordered Repeatnumber: 1Start: 04-24-2021 End: 93-80-0443qehs 1 capsule by mouth once dailyPrazosin (Minipress) 1 mg capsule Discontinued 1 MG PO Daily April 28, 2021 9:43am March 19, 2024 12:59pmtraZODone hydrochloride 150 mg oral tablet (20 sources)Serotonin Reuptake InhibitorStart: 91-67-8232vbxYMNUVI 150 mg Tab 150 mg = 1 tab(s), Refills(s) 0 Start Date: 06/25/24 Status: Ordered Repeat numb er: 1Start: 15-72-9929fsxb 3 tablets by mouth once daily at bedtime as needed Trazodone 50 mg tablet Active 150 MG PO Daily at bedtime as needed for Insomnia February 05, 2022 7:37pm Complies with drug therapyStart: 10-34-7806iqud 150 mg by mouth once daily at bedtimeTrazodone Active 150 MG PO Daily at bedtime February 05, 2022 7:37pmStart: 01-49-7821sffj 100 mg by mouth once daily at bedtimeTrazodone Active 100 MG PO Daily at bedtime February 05, 2022 7:37pm Start: 04-28-2021 End: 85-70-8572fbyn 1 tablet by mouth once daily at bedtime as neededTrazodone 50 mg Tablet Discontinued 50 MG PO Daily at bedtime as needed for Insomnia April 28, 2021 1:00am February 05, 2022 7:37pmVital-D (3 sources)Start: 81-14-1279Eemyz-D Oral, Daily, Refill(s) 0 Start Date: 06/25/24 Status: Ordered Repeat number: 1ziprasidone 60 mg oral capsule (20 sources)Atypical AntipsychoticStart: 89-85-4426awcezrsfreo 60 mg oral capsule 60 mg = 1 cap(s), Refills(s) 0 Start Date: 06/25/24 Status: Ordered Re peat number: 1Start: 64-53-1398upapaplrpfa 20 mg Cap 20 mg = 1 cap(s), Refills(s) 0 Start Date: 06/25/24 Status: Ordered Repeat number: 1Start: 67-24-8025mazw 20 mg by mouth twice dailyZiprasidone Hcl Active 20 MG PO Twice daily August 31, 2023 12:00amStart: 27-29-3695Tegvqrppijm Hcl Active MG PO August 31, 2023 12:00amStart: 11-46-2558Fkgwwwpsllp Hcl Active MG PO August 31, 2023 12:00am Completed/Discontinued Medications MedicationDrug Class(es)DatesSig (Normalized)Sig (Original)acetaminophen 325 mg / oxyCODONE hydrochloride 5 mg oral tablet (7 sources)Opioid AgonistStart: 04-28-2024 End: 12-57-4531dmqn 1 tablet by mouth every six hours as needed for pain Oxycodone-Acetaminophen (Percocet) 5-325 mg tablet Discontinued 1 TAB PO Q6H as needed for pain 03 10April 28, 2024 August 16, 2024 4:26pmamitriptyline hydrochloride 50 mg oral tablet (14 sources)Tricyclic AntidepressantStart: 07-31-2020 End: 77-10-5738Uqnceyiyrndqq 50 mg tablet Discontinued July 31, 2020 12:00am April 24, 2021 5:35pmStart: 07-31-2020 End: 93-55-6206Lmwoozkbapeor 50 mg tablet Discontinued TABLET July 31, 2020 12:00am April 24, 2021 5:35pmStart: 07-31-2020 End: 07-50-1074Qecoghgnjeodv Discontinued TABLET July 31, 2020 12:00am April 24, 2021 5:35pmcephalexin 500 mg oral capsule (10 sources)Cephalosporin AntibacterialStart: 08-26-2022 End: 72-92-2780xazz 1 capsule by mouth every eight hoursCephalexin 500 mg capsule Discontinued 500 MG PO Q8H 30 August 26, 2022 12:00am August 31, 2023 12:24pmdocusate sodium 100 mg oral capsule (14 sources)Start: 04-28-2021 End: 62-05-5636mdig 1 capsule by mouth twice daily as needed for constipation Docusate Sodium (Dok) 100 mg Capsule Discontinued 100 MG PO Twice daily as needed for Constipation 14 April 28, 2021 1:00am February 05, 2022 7:36pm ergocalciferol 1.25 mg oral capsule (14 sources)Provitamin D2 CompoundStart: 04-28-2021 End: 89-18-8628wyps 1 capsule by mouth every weekErgocalciferol (Vitamin D2) 1,250 mcg (50,000 unit) Capsule Discontinued 1250 MCG PO Q7D 3 April 28, 2021 1:00am August 31, 2023 12:24pmmeloxicam 15 mg oral tablet (9 sources)Nonsteroidal Anti-inflammatory DrugStart: 10-27-2024 End: 15-63-5374etcj 1 tablet by mouth once dailyMeloxicam 15 mg tablet Discontinued 15 MG PO Daily October 27, 2024 1:23pm January 13, 2025 1:30pm Start: 02-24-1812megegetsu 7.5 mg Tab 7.5 mg = 1 tab(s), Refills(s) 0 Start Date: 06/25/24 Status: Ordered Repeat number: 1OLANZapine 5 mg oral tablet (20 sources)Atypical AntipsychoticStart: 04-24-2021 End: 99-03-9107aokt 1 tablet by mouth once dailyOlanzapine 5 mg tablet Discontinued 5 MG PO Daily April 28, 2021 9:43am August 31, 2023 12: 25pmpenicillin v potassium 500 mg oral tablet (9 sources)Start: 08-31-2023 End: 00-75-4377Byqamlihdc V Potassium 500 mg tablet Discontinued 1000 MG PO Twice daily August 31, 2023 12:00am January 19, 2024 4:32pmStart: 08-31-2023 End: 01-57-9599eryz 1000 mg by mouth twice dailyPenicillin V Potassium Discontinued 1000 MG PO Twice daily August 31, 2023 12:00am January 19, 2024 4:32pmsertraline 50 mg oral tablet (20 sources)Serotonin Reuptake InhibitorStart: 07-31-2020 End: 26-49-0515erxx 1 tablet by mouth once dailySertraline 50 mg tablet Discontinued 50 MG PO Daily April 28, 2021 9:43am February 05, 2022 7:37pm24 hr divalproex sodium 250 mg extended release oral tablet (14 sources)Mood Stabilizer, Anti-epileptic AgentStart: 04-24-2021 End: 77-93-8795ukzz 1 tablet by mouth once dailyDivalproex 250 mg tablet extended release 24 hr Discontinued 250 MG PO Daily April 24, 2021 1:00am August 31, 2023 12:24pm Problems Active Problems Problem ClassificationProblemDateDocumented DateEpisodic/ChronicAbdominal pain (8 sources)Abdominal pain; Translations: [Unspecified abdominal pain]01-19-2024 EpisodicAnxiety disorders (20 sources)Mixed anxiety and depressive disorder; Translations: [Anxiety disorder, unspecified]18-86-8095IkilslfUgotgg (3 sources)Qcadxm84-72-3622QjhueauCjehjnprs of teeth and jaw (9 sources)Toothache; Translations: [Other specified disorders of teeth and supporting structures]42-72-1941LyvvlzaxOdelfyhbzsvrw symptoms and ill-defined conditions (10 sources)Mixed incontinence; Translations: [Incontinence]Onset: 09-03-2024 ChronicImmunizations and screening for infectious disease (14 sources)Contact with or exposure to other viral diseases; Translations: [Lab test negative for COVID-19 virus]77-80-2950XdrkdpoaGhya disorders (6 sources)Bipolar disorder; Translations: [Depressive disorder]06-25-2024 ChronicOther connective tissue disease (5 sources)Muscle weakness; Translations: [Muscle weakness (generalized)] 17-63-9830RalfegtrZplkv female genital disorders (10 sources)Abnormal uterine bleeding; Translations: [Other specified abnormal uterine and vaginal bleeding]38-10-3009PdwmlwzHpift nervous system disorders (1 source)Other chronic pain; Translations: [Other chronic pain]Onset: 84-85-8608EohjsgdGrnrq nervous system disorders (5 sources)Paresthesia; Translations: [Paresthesia of skin]06-61-7188Urlbfzls Other nervous system disorders (5 sources)Abnormal reflex; Translations: [Abnormal reflex]12-46-9477Gtisrjon Other upper respiratory infections (14 sources)Upper respiratory infection; Translations: [Acute upper respiratory infection, unspecified]89-98-0087UsyzdpmaTynvixpsv (8 sources)Cerebral palsy; 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]06-25-2024 ChronicResidual codes; unclassified (5 sources)History of neurodevelopmental disorder; Translations: [Personal history of other specified conditions]79-47-2246IokbtnjbEznnqdimukg; intervertebral disc disorders; other back problems (4 sources)Lumbar spondylosis; Translations: [Spondylosis without myelopathy or radiculopathy, lumbar region]43-98-7675QzkijuaDmxbbpm and strains (16 sources)Sprain of foot; Translations: [Unspecified sprain of unspecified foot, initial encounter]20-62-4393JyvtniwgRwhsomx and intentional self-inflicted injury (14 sources)Suicidal thoughts; Translations: [Suicidal ideations]04-24-2021 EpisodicUnclassified (1 source)M54.50 - Low back pain, unspecified,G89.29 - Other chronic pain,R20.2 - Paresthesia of skin,M54.17 - Radiculopathy, lumbosacral regionUnclassified (1 source)Low back pain, unspecified; Translations: [Low back pain, unspecified] Onset: 64-79-9587Rbyyyfj tract infections (10 sources)Urinary tract infectious disease; Translations: [Urinary tract infection, site not specified]06-37-9721Emumivyb Past or Other Problems Problem ClassificationProblemDateDocumented DateEpisodic/ChronicBiliary tract disease (8 sources)Biliary calculus; Translations: [Calculus of gallbladder with chronic cholecystitis without obstruction]Onset: 156532-66-5807AwqzprhsWuxgj connective tissue disease (1 source)Muscle weakness (generalized); Translations: [Muscle weakness (generalized)]Onset: 45-44-2613KejwqilyGrtkt injuries and conditions due to external causes (1 source)Unspecified injury of right wrist, hand and finger(s), initial encounter; Translations: [Unspecified injury of right wrist, hand and finger(s), initial encounter]Onset: 11-76-0394LklspcycNjbfe nervous system disorders (1 source)Paresthesia of skin; Translations: [Paresthesia of skin]Onset: 45-30-3418LeueqsyyPwodu nervous system disorders (1 source)Abnormal reflex; Translations: [Abnormal reflex]Onset: 10-28-2024 EpisodicSpondylosis; intervertebral disc disorders; other back problems (15 sources)Lumbosacral radiculopathy; Translations: [Radiculopathy, lumbosacral region]Onset: 082604-82-0641Crtqqzwp Results Test NameValueInterpretationReference RangeFacilityUrology Office/Clinic Noteon 49-68-5851Gcsgald Office/Clinic NoteUrology Office/Clinic Note HPI Staff 34 [...] Oxybutynin 10 mg qd. Script sent to [facility] [place]. -Increased water intake, limit bladder irritants -Timed and double voids -Follow in 3 mos w/ PVR, or sooner if needed Follow-up With When Contact Information Nicole SOLIS, Jacklyn, YANIV Additional Instructions: 3 mos w/ PVR Patient Education Overactive Bladder, Adult I, Benita Calle, personally scribed for Jacklyn Rivera PA-C on 01/14/2025 10:53:43. Electronicallysigned by mich Calle on 01/14/2025 10:53:43. Portions of this record may have been created with voice recognition artificial intelligence software, specifically [employer], [employer] and or Já Entendi. Substitutions may have occurred due to the [...] Daily, 6 refills prazosin (more content not included)...[facility] HospitalComment on above:Result Comment: Electronically Signed By: Jacklyn Rivera PA-C\.isreal\Date and Time Signed: 01/14/25 11:02 EDTMR head/brain wo/w conon 64-20-5486WF head/brain wo/w [facility] [place] [address] [place] [address] MRI Report Signed Patient: Yue Dawn MR#: [id number] : 1990 Acct:[id number] Age/Sex: 34 / F ADM Date: 10/28/24 Loc: Room: Type: [facility] Attending Dr: Elise VASQUEZ Copies to: [...] Howe M.D. 10/29/2024 9:37 AM Dictation Location: [place] [address] Transcribed By: MARILEE 10/29/24 0937 Dictated By: Alexis Howe MD 10/29/2427 Signed By: 10/29/24 0937[facility] Physician [facility] lumbar spine wo conon 95-56-0227AB lumbar spine wo [facility] [place] [address] [place], [place] [id number] MRI Report Signed Patient: Yue Dawn MR#: [id number] : 1990 Acct:[id number] Age/Sex: 34 / F ADM Date: 10/28/24 Loc: MR Room: Type: [facility] Attending Dr: Elise VASQUEZ Copies to: [...] AM Dictation Location: RADIO-PC-26 Transcribed By: MARILEE 10/29/24 08 Dictated By: Alexis Howe MD 10/29/2446 Signed By: 10/29/24 0855[facility] Physician GroupX-ray reportOrdered By: Gallito Bridges on 25-47-1177Fhymx reportZANESVILLE [facility] [address] [address] XRay Report Signed Patient: Yue Dawn MR#: [id number] : 1990 Acct:[id number] Age/Sex: 33 / F ADM Date: 5 Loc: ER Room: Type: [facility] ER Attending Dr: Copies to: [...] Bridges M.D. 08/16/2024 5:05 PM Dictation Location: RADIO-PC-17 Transcribed By: MARILEE 08/16/241704 Dictated By: Gallito Bridges II, MD 08/16/241704 Signed By: 08/16/241704 [facility] Work Phone: XR hand RT min 3V*on 46-41-8852GZ hand RT min 3V* [facility] [place] [address] XRay Report Signed Patient: Yue Dawn MR#: [id number] : 1990 Acct:[id number] Age/Sex: 33 / F ADM Date: 08/16/24 Loc: ER Room: Type: [facility] ER Attending Dr: Copies to: [...] Bridges M.D. 08/16/2024 5:05 PM Dictation Location: [place] [address] Transcribed By: MARILEE 08/16/241704 Dictated By: Gallito Bridges II, MD 08/16/241704 Signed By: 08/16/[address] [place] [address] Physician GroupUrology Office/Clinic Noteon 81-09-4487Rudndpi Office/Clinic NoteUrology Office/Clinic Note Chief Complaint urinary [...] incontinence) BBSQ 22 Poor control. UUI > SHURTI. no FI. Contributing factors: DM - No [...] When Contact Information GILDA SOLIS, PAU Burnham, YANIV In 3 months [address] [place] [address] Additional Instructions: Patient Education Overactive [...] Father. Hypertension: Father. Mental illness: Mother. Migraine: Father.[facility] HospitalComment on above:Result Comment: Electronically Signed By: PAU VO PA-C\.br\Date and Time Signed: 06/28/2509:09 EDTAmbulatory Visit Summaryon 71-46-7895Gqckikpioz Visit SummaryAmbulatory Visit Summary YUE DAWN Tej :1990 Visit Date:06/25/2024 Ambulatory Visit Instructions Your [...] With: PAU VO PA-C Where: [facility] [address] [place] [address] [place] [address]- Medications What How Much When Instructions Unchanged [...] you for choosing us for your care. [facility] HospitalAmbulatory Visit Summary Ambulatory Visit Summary YUE DAWN [...] What to do next Scheduled Follow-Up Appointments August. 2024 8:20 AM EDT With: PAU VO PA-C Where: [facility] [address] [place] [address]- Medications What How Much When Instructions Unchanged [...] you for choosing us for your care. [facility] HospitalAlkaline Phosphataseon 33-80-0241NSE [Catalytic activity/Vol]81 U/YGwbvne02-045Qbz [facility] Physician GroupComment on above:Performed By: #### ANAYELI, ALP, BILIT #### [place] [address] USAAlkaline phosphatase [Enzymatic activity/volume] in Serum or PlasmaOrdered By: Zhao Juárez on 30-26-8029DHD [Catalytic activity/Vol] Alkaline phosphatase [Enzymatic activity/volume] in Serum or Fhnyih29-307 [facility] HospitalAmphetamine Screen Ql (U)Ordered By: Renny Roberts on 72-54-2260Dfrgwgvqnhvq Ql (U)Amphetamines screenNegativePeoples HospitalAmylaseon 12-22-5363Sxdwryw [Catalytic activity/Vol]23 U/LLow 29-103The [facility] Physician GroupComment on above:Result Comment: PERFORMED BY: [place] [id number] PATHOLOGIST ORGANISATION AND METHODS ANALYST KENZIE LAN M.D.Performed By: #### ANAYELI, ALP, BILIT #### [place] [id number] USAAmylase [Enzymatic activity/volume] in Serum or Plasma Ordered By: Zhao Juárez on 72-94-0182Brrjpuk [Catalytic activity/Vol] Amylase [Enzymatic activity/volume] in Serum or KzydovHrj48-896PsdodvucoPeoples HospitalBarbiturates [Presence] in Urine by Screen methodOrdered By: Renny Roberts on 88-97-3760Vqsrcvqzetaw Screen Ql (U)Barbiturates [Presence] in Urine by Screen methodNegMemorial HospitalBenzodiazepines Screen Ql (U)Ordered By: Renny Roberts on 86-82-7759Ilmfxzmkboewwqd Ql (U) Benzodiazepines [Presence] in Urine by Screen methodNegMemorial HospitalBenzoylecgonine [Presence] in Urine by Screen methodOrdered By: Renny Roberts on 71-55-8025Ibxqeyrvnwlyxct Screen Ql (U)Benzoylecgonine [Presence] in Urine by Screen methodNegMemorial Hospital Bilirubin,Totalon 45-28-2682Exlifeysj [Mass/Vol]0.5 mg/dLNormal0.3-1.0[facility] Physician GroupComment on above:Performed By: #### ANAYELI, ALP, BILIT #### [facility] [address] [place], [place] [id number] USABilirubin.total [Mass/volume] in Serum or PlasmaOrdered By: Zhao Juárez on 14-31-3026Kjfhbaywd [Mass/Vol]Bilirubin.total [Mass/volume] in Serum or Plasma0.3-1.0[facility] Cannabinoids [Presence] in Urine by Screen methodOrdered By: Renny Roberts on 48-23-6885Odwwsugfwmmk Screen Ql (U)Cannabinoids [Presence] in Urine by Screen methodNegMemorial HospitalComment on above:These are unconfirmed results and should not be used for legal purposes. Drug Cut-Off Concentration: AMPH 1000 ng/mL YOVANY 200 ng/mL DERRICK 200 ng/mL COCM 300 ng/mL OP 300 ng/mL PCP 25 ng/mL THC 20 ng/mLDrug Screen,Urineon 94-82-8985Jmguaetitaz Screen,UrineNegativeNormalNegativeThe [facility] Physician GroupComment on above: Performed By: #### UHCG, URDS #### [place] [address] USABarbiturate Screen,UrineNegativeNormalNegativeSarasota Memorial Hospital Physician GroupComment on above:Performed By: #### UHCG, URDS #### [place] [address] USABenzodiazepines Screen,UrineNegativeNormalNegativeSarasota Memorial Hospital Physician GroupComment on above:Performed By: #### UHCG, URDS #### [place] [address] USACannabinoid Screen,UrineNegativeNormalNegativeSarasota Memorial Hospital Physician GroupComment on above:Result Comment: These are unconfirmed results and should not be used for legal purposes. Drug Cut-Off Concentration: AMPH 1000 ng/mL YOVANY 200 ng/mL DERRICK 200 ng/mL COCM 300 ng/mL OP 300 ng/mL PCP 25 ng/mL THC 20 ng/mL PERFORMED BY: [place] [address] PATHOLOGIST ORGANISATION AND METHODS ANALYST KENZIE LAN M.D.Performed By: #### UHCG, URDS #### [place] [address] USACocaine Screen,UrineNegativeNormalNegativeSarasota Memorial Hospital Physician GroupComment on above:Performed By: #### UHCG, URDS #### [place] [address] USAOpiate Screen,UrineNegativeNormalNegativeSarasota Memorial Hospital Physician GroupComment on above:Performed By: #### UHCG, URDS #### [place] [address] USAPhencyclidine Screen,UrineNegativeNormalNegativeThe [facility]borough Memorial HospitalComment on above:Performed By: #### UHCG, URDS #### [place] [id number] USAHCG ( test) IA.rapid Ql (U)Ordered By: Renny Roberts on 00-07-2774IBS ( test) Ql (U)Urine human chorionic gonadotropin (hCG) detection by immunoassayPeoples HospitalHCG,Urineon 64-39-5226Lbrb HCG ( test) Ql (U)NegativeNormalThe [facility] Physician [facility] HospitalComment on above:Result Comment: PERFORMED BY: [address] [place] [id number] PATHOLOGIST ORGANISATION AND METHODS ANALYST KENZIE LAN M.D.Performed By: #### UHCG, URDS #### [address] [address] USALon 04-28-2024 Specimen: [id number] Received: 04/28/24 Status: TAYLOR Hester Num: [id number] Spec Type: Surgical Subm Dr: Zhao Juárez DO Tissues: A Gallbladder (GALLBLADDER) Procedures: HE/2, Gross/Micro L3 Age/ Patient Sex Location Account Attending Physician Yue Dawn Tej 33/F [place] [id number] Zhao Juárez, DO SPEC NUM: [id number] RECD: 04/28/24 STATUS: TAYLOR HESTER NUM: [id number] TJ: 04/28/24- SUBM DR: Zhao Juárez DO ENTERED: 04/28/24-[address]: NORA TYPE: Surgical DEPT: S ENTERED BY: [id number] RECV BY: [id number] ORDERED: HE/2, Gross/Micro L3 ORDERED: HE/2, Gross/Micro [...] tissue, up to 0.8 cm in thickness. [employer] sections of the gallbladder are submitted in A2. (2, ss, [id number] A) CPT Codes 10217 Specimen: [id number] Received: 04/28/24 Status: TAYLOR Hester Num: [id number] Spec Type: Surgical Subm Dr: Zhao Juárez DO Tissues: A Gallbladder (GALLBLADDER) Procedures: HE/Afua, Olamide/Pastor L3 Patient: Yue Dawn [id number] (Continued) Signed (signature on file) Kenzie Lan MD 04/29/[address] [place] [address] Physician GroupOpiates [Presence] in Urine by Screen methodOrdered By: Renny Roberts on 27-49-0504Ebbgohz Screen Ql (U)Opiates [Presence] in Urine by Screen methodNegativePeoples Hospital Phencyclidine Screen Ql (U)Ordered By: Renny Roberts on 00-05-1817Orjxbmwwykump Ql (U)Phencyclidine [Presence] in Urine by Screen methodNegMemorial HospitalAlanine aminotransferase [Enzymatic activity/volume] in Serum or PlasmaOrdered By: Louie Nevarez on 97-71-0256FMP [Catalytic activity/Vol]24 U/L 752Peoples HospitalAlbumin [Mass/volume] in Serum or Plasma by Bromocresol green (BCG) dye binding methoOrdered By: Louie Nevarez on 26-31-0005Iqcgwvv BCG dye [Mass/Vol]4.1 g/dL3.5-5.7FWexner Medical CenterAlkaline phosphatase [Enzymatic activity/volume] in Serum or PlasmaOrdered By: Louie Nevarez on 35-29-0052XUQ [Catalytic activity/Vol]73 U/L34-104 [facility] HospitalAspartate aminotransferase [Enzymatic activity/volume] in Serum or PlasmaOrdered By: Louie Nevarez on 49-64-2807SVY [Catalytic activity/Vol]14 U/X99-15IdrvylinnPeoples HospitalBasophils Auto (Bld) [#/Vol]Ordered By: Louie Nevarez on 80-16-0953Uisgnfsqn (Bld) [#/Vol]0.1 10*3/uL0.0-0.2FWexner Medical CenterBasophils/100 WBC Auto (Bld)Ordered By: Louie Nevarez on 65-67-7048Juuprogng/100 WBC (Bld)1.2 %. Peoples HospitalBilirubin Test strip Ql (U)Ordered By: Louie Nevarez on 29-50-2940Izmsnlvqo Ql (U)NegativeNegativePeoples HospitalBilirubin.direct [Mass/volume] in Serum or PlasmaOrdered By: Louie Nevarez on 83-83-6856Gntojdfae.direct [Mass/Vol]0.00 mg/dLLow0.03-0.18FWexner Medical CenterComment on above:If the DBIL is less than 0.1, IBIL is not able to becalculated.Bilirubin.total [Mass/volume] in Serum or PlasmaOrdered By: Louie Nevarez on 82-31-5128Jqwqsmyih [Mass/Vol]0.4 mg/dL0.3-1.0[facility] HospitalCalcium [Mass/volume] in Serum or PlasmaOrdered By: Louie Nevarez on 26-15-8702Cgwlktx [Mass/Vol]9.5 mg/dL8.6-10.3FWexner Medical CenterCarbon dioxide, total [Moles/volume] in Serum or Plasma Ordered By: Louie Nevarez on 75-41-0077KG0 [Moles/Vol]22.6 mmol/L21.0-31.0 [facility] HospitalChloride [Moles/volume] in Serum or Plasma Ordered By: Louie Nevarez on 13-76-9063Rtbfvzrb [Moles/Vol]106 mmol/L98-107 [facility] HospitalColor Auto (U)Ordered By: Louie Nevarez on 85-66-4597Crirn (U)Light-yellowYellowPeoples HospitalCreatinine [Mass/volume] in Serum or PlasmaOrdered By: Louie Nevarez on 01-19-2024 Creatinine [Mass/Vol]0.95 mg/dL0.60-1.20[facility] Eosinophils Auto (Bld) [#/Vol]Ordered By: Louie Nevarez on 01-19-2024 Eosinophils (Bld) [#/Vol]0.3 10*3/uL0.0-0.45[facility] Eosinophils/100 WBC Auto (Bld)Ordered By: Louie Nevarez on 01-19-2024 Eosinophils/100 WBC (Bld)4.3 %.[facility] HospitalErythrocyte distribution width Auto (RBC) [Ratio]Ordered By: Louie Nevarez on 01-19-2024 Erythrocyte distribution width (RBC) [Ratio]12.7 %11.9-15.3FWexner Medical CenterGlobulin Calc (S) [Mass/Vol]Ordered By: Louie Nevarez on 40-34-9684Pjgmcemx (S) [Mass/Vol]2.6 g/dLPeoples Hospital Glucose [Mass/volume] in Serum or PlasmaOrdered By: Louie Nevarez on 01-19-2024 Glucose [Mass/Vol]89 mg/dZ13-166ZcrkmknelPeoples HospitalComment on above:ADA recommended reference rangeRandom Glucose Reference Range is dependent on time and content of last meal. Glucose of more than 200 mg/dL in a nonstressed, ambulatory subject supports the diagnosisof Diabetes Mellitus. Glucose [Mass/volume] in Urine by Test stripOrdered By: Louie Nevarez on 41-31-6890Jvuqfwg Test strip (U) [Mass/Vol]Normal mg/dLNormalPeoples HospitalHCG ( test) IA.rapid Ql (U)Ordered By: Louie Nevarez on 69-00-7413QHX ( test) Ql (U)NegativePeoples Hospital Hematocrit Auto (Bld) [Volume fraction]Ordered By: Louie Nevarez on 01-19-2024 Hematocrit (Bld) [Volume fraction]36.4 %34.0-46.4FWexner Medical CenterHemoglobin Test strip Ql (U)Ordered By: Louie Nevarez on 01-19-2024 Hemoglobin Ql (U)NegativeNegativePeoples HospitalHemoglobin [Mass/volume] in BloodOrdered By: Louie Nevarez on 21-02-2832Mlcqdciduj (Bld) [Mass/Vol]12.7 g/dL11.8-15.4FWexner Medical CenterKetones Test strip Ql (U)Ordered By: Louie Nevarez on 38-08-4095Dyvrweb Ql (U)NegativeNegative [facility] HospitalLeukocyte esterase [Presence] in Urine by Test stripOrdered By: Louie Nevarez on 97-15-8789Clhwtudhz esterase Test strip Ql (U)NegativeNegativePeoples HospitalLeukocytes [#/volume] corrected for nucleated erythrocytes in Blood by Automated counOrdered By: Louie Nevarez on 36-52-2703TSD corrected for nucl RBC Auto (Bld) [#/Vol]6.8 10*3/uL3.8-11.6FWexner Medical CenterLipase [Enzymatic activity/volume] in Serum or PlasmaOrdered By: Louie Nevarez on 01-19-2024 Lipase [Catalytic activity/Vol]18.0 U/L11.0-82.0Pe[facility] HospitalLymphocytes Auto (Bld) [#/Vol]Ordered By: Louie Nevarez on 01-19-2024 Lymphocytes (Bld) [#/Vol]2.6 10*3/uL1.00-4.8[facility] Lymphocytes/100 WBC Auto (Bld)Ordered By: Louie Nevarez on 01-19-2024 Lymphocytes/100 WBC (Bld)38.0 %.[facility] Auto (RBC) [Entitic mass]Ordered By: Louie Nevarez on 52-07-8895ISZ (RBC) [Entitic mass] 29.3 pg24.7-34.3FParkview Health Montpelier HospitalHC Auto (RBC) [Mass/Vol] Ordered By: Louie Nevarez on 30-09-2159GATL (RBC) [Mass/Vol]34.9 g/dL32.0-35.0 [facility] HospitalMCV Auto (RBC) [Entitic vol]Ordered By: Louie Nevarez on 42-41-7613FQP (RBC) [Entitic vol]84.0 fP21-182CrligpjtqPeoples HospitalMonocyte distribution width [Entitic volume] in Blood by Automated Ordered By: Louie Nevarez on 74-23-1458Iexeluok distribution width Auto (Bld) [Entitic vol]18.38 %0.00-20.00[facility] HospitalMonocytes Auto (Bld) [#/Vol]Ordered By: Louie Nevarez on 18-17-2247Lzqbzpckc (Bld) [#/Vol]0.5 10*3/uL0.0-0.8[facility] HospitalMonocytes/100 WBC Auto (Bld) Ordered By: Louie Nevarez on 93-85-3929Cavcfibow/100 WBC (Bld)7.8 %.[facility] HospitalNeutrophils Auto (Bld) [#/Vol]Ordered By: Louie Nevarez on 75-66-6661Lmrkprdanyv (Bld) [#/Vol]3.3 10*3/uL1.8-7.7FWexner Medical CenterNeutrophils/100 WBC Auto (Bld)Ordered By: Louie Nevarez on 95-53-0390Gqafrvdviok/100 WBC (Bld)48.7 %.[facility] Nitrite Test strip Ql (U)Ordered By: Louie Nevarez on 13-15-2026Uombjrt Ql (U) NegativeNegativePeoples HospitalNo Panel InformationOrdered By: Louie Nevarez on 80-07-8483Woceqxdqg GFR (CKD-EPI)> 60.0 mL/MinPeoples HospitalPharmacy Creatinine Clearance (Chem98.13Pe[facility] HospitalNucleated erythrocytes [Presence] in Blood by Automated countOrdered By: Louie Nevarez on 33-03-3296Egxprctgw RBC Auto Ql (Bld)0.1 /100{WBC}0-0.5FWexner Medical CenterPlatelet mean volume Auto (Bld) [Entitic vol]Ordered By: Louie Nevarez on 03-06-3098Huxojmus mean volume (Bld) [Entitic vol]7.9 fL6.3-10.7FWexner Medical CenterPlatelets Auto (Bld) [#/Vol]Ordered By: Louie Nevarez on 88-18-1950Pycwlerun (Bld) [#/Vol]301 10*3/hG809-375IdtwjsluzPeoples HospitalPotassium [Moles/volume] in Serum or PlasmaOrdered By: Louie Nevarez on 11-53-8198Qjlqvatfu [Moles/Vol]4.1 mmol/L3.5-5.1FWexner Medical CenterProtein Test strip (U) [Mass/Vol] Ordered By: Louie Nevarez on 64-54-2084Zhyivww (U) [Mass/Vol]NegativeNegative [facility] HospitalProtein [Mass/volume] in Serum or PlasmaOrdered By: Louie Nevarez on 60-85-7911Rsyispi [Mass/Vol]6.7 g/dL6.4-8.9[facility] HospitalRBC Auto (Bld) [#/Vol]Ordered By: Louie Nevarez on 31-00-1400JUH (Bld) [#/Vol]4.34 10*6/uL3.60-5.00[facility] Hospitalerum or plasma albumin/globulin mass ratioOrdered By: Louie Nevarez on 00-12-5368Euuwpye/Globulin [Mass ratio]1.6 {ratio}[facility] Hospitalerum or plasma anion gap determinationOrdered By: Louie Nevarez on 06-88-3779Mftaw gap [Moles/Vol]11.5 mmol/L6.0-15.0[facility] Hospitalerum or plasma non-glucuronidated bilirubin measurement (mass/volume) Ordered By: Louie Nevarez on 79-13-1422Vphapupew.indirect [Mass/Vol]0.4 mg/dL [facility] Hospitalodium [Moles/volume] in Serum or PlasmaOrdered By: Louie Nevarez on 40-81-7672Lgmevv [Moles/Vol]136 mmol/L281-430JhvjhrqyrGuernsey Memorial Hospitalpecific gravity Test strip (U) [Rel density]Ordered By: Louie Nevarez on 88-09-9325Mkxcerpg gravity (U) [Rel density]1.0111.001-1.030 [facility] HospitalUrea nitrogen [Mass/volume] in Serum or Plasma Ordered By: Louie Nevarez on 10-06-7636Rbzf nitrogen [Mass/Vol]10 mg/dL7-25 [facility] HospitalUrine appearanceOrdered By: Louie Nevarez on 60-35-3200Sqhbrqjgpf (U)ClearClearFWexner Medical CenterUrobilinogen Test strip (U) [Mass/Vol]Ordered By: Louie Nevarez on 10-72-0830Okyazompadmr (U) [Mass/Vol]Normal mg/dLNormalPeoples HospitalWBC Auto (Bld) [#/Vol]Ordered By: Louie Nevarez on 24-46-8401BCQ (Bld) [#/Vol]6.8 10*3/uL 3.8-11.6FWexner Medical CenterpH Test strip (U)Ordered By: Louie Nevarez on 64-05-4910oR (U)5.5 [pH]5.0-9.0[facility] Basophils Auto (Bld) [#/Vol]Ordered By: Billy Eaton on 01-26-2022 Basophils (Bld) [#/Vol]0.0 10*3/uL0.0-0.2FWexner Medical Center Basophils/100 WBC Auto (Bld)Ordered By: Billy Eaton on 01-26-2022 Basophils/100 WBC (Bld)0.8 %.[facility] HospitalBody fluid albumin measurement (mass/volume)Ordered By: Billy Eaton on 83-25-8066Kmyybmq (Body fld) [Mass/Vol]3.6 g/dL3.2-5.5FWexner Medical CenterCreatinine and Glomerular filtration rate.predicted panel (S/P/Bld)Ordered By: Billy Eaton on 29-72-6629Czoctdoexj [Mass/Vol]0.81 mg/dL0.44-1.03[facility] HospitalEosinophils Auto (Bld) [#/Vol]Ordered By: Billy Eaton on 51-22-7954Gxjkpniwnrb (Bld) [#/Vol]0.3 10*3/uL0.0-0.45[facility] HospitalEosinophils/100 WBC Auto (Bld)Ordered By: Billy Eaton on 36-27-4069Npclapojuau/100 WBC (Bld)5.3 %.[facility] HospitalErythrocyte distribution width Auto (RBC) [Ratio]Ordered By: Billy Eaton on 63-88-5114Pzyfunsicgo distribution width (RBC) [Ratio]14.7 % 11.9-15.3FWexner Medical CenterEstimated glomerular filtration rate (GFR) non- AmericanOrdered By: Billy Eaton on 01-26-2022 GFR/1.73 sq M.predicted among non-blacks MDRD (S/P/Bld) [Vol rate/Area]> 60 mL/MinPeoples HospitalGlobulin Calc (S) [Mass/Vol]Ordered By: Billy Eaton on 67-81-4409Rbwhkgne (S) [Mass/Vol]3.0 g/dLPeoples HospitalGlucose mean value [Mass/volume] in Blood Estimated from glycated hemoglobinOrdered By: Billy Eaton on 82-58-9838Alexyqz glucose Estimated from glycated hemoglobin (Bld) [Mass/Vol]108 mg/dLPeoples HospitalHematocrit Auto (Bld) [Volume fraction]Ordered By: Billy Eaton on 35-39-4199Lnwvhimtwy (Bld) [Volume fraction]38.4 % 34.0-46.4FWexner Medical CenterHemoglobin A1c percentageOrdered By: Billy Eaton on 41-93-5402QcY4g (Bld) [Mass fraction]5.4 %4.3-5.6 [facility] HospitalComment on above:Increased risk for diabetes: 5.7 - 6.4diabetes: >6.4glycemic control for adults with diabetes: <7.0 Hemoglobin [Mass/volume] in BloodOrdered By: Billy Eaton on 01-26-2022 Hemoglobin (Bld) [Mass/Vol]12.8 g/dL11.8-15.4FWexner Medical Center Laboratory - Hematology and Cell countsOrdered By: Billy Eaton on 31-21-9096Vzuxysejb RBC/100 WBC (Bld) [Ratio]0.1 %0-0.5FWexner Medical CenterLeukocytes [#/volume] in Blood by Automated countOrdered By: Billy Eaton on 48-33-6239XYI (Bld) [#/Vol]5.8 10*3/uL4.5-11.0[facility] HospitalLymphocytes Auto (Bld) [#/Vol]Ordered By: Billy Eaton on 13-47-8460Xpqugpvyfun (Bld) [#/Vol]2.3 10*3/uL1.00-4.8[facility] HospitalLymphocytes/100 WBC Auto (Bld)Ordered By: Billy Eaton on 73-02-3384Jmfsasbnaih/100 WBC (Bld)39.9 %.[facility] Auto (RBC) [Entitic mass]Ordered By: Billy Eaton on 38-10-5962ZMQ (RBC) [Entitic mass]27.5 pg24.7-34.3FThe Jewish Hospital Auto (RBC) [Mass/Vol]Ordered By: Billy Eaton on 01-26-2022 MCHC (RBC) [Mass/Vol]33.4 g/dL32.0-35.0[facility] HospitalMCV Auto (RBC) [Entitic vol]Ordered By: Billy Eaton on 41-48-5928YSO (RBC) [Entitic vol]82.3 bZ25-253JbluzemgxPeoples HospitalMonocytes Auto (Bld) [#/Vol]Ordered By: Billy Eaton on 10-59-9942Tahlgfrto (Bld) [#/Vol]0.4 10*3/uL0.0-0.8[facility] HospitalMonocytes/100 WBC Auto (Bld) Ordered By: Billy Eaton on 06-93-9021Mavdgnnqy/100 WBC (Bld)7.1 %. [facility] HospitalNeutrophils Auto (Bld) [#/Vol]Ordered By: Billy Eaton on 75-48-9106Twsyibkazio (Bld) [#/Vol]2.7 10*3/uL1.8-7.7 [facility] HospitalNeutrophils/100 WBC Auto (Bld)Ordered By: Billy Eaton on 97-29-1700Ucsejnndflv/100 WBC (Bld)46.9 %.[facility] HospitalNo Panel InformationOrdered By: Billy Eaton on 13-29-7596Vbqzctffh GFR ()> 60 mL/MinPeoples HospitalComment on above:GFR estimated reference range: According to KDOQI guidelines, <60 ml/min/1.73m2 is sufficient todiagnose a patient with chronic kidney disease.Pharmacy Creatinine Clearance (ChemN/[facility] CenterValproic Acid (Depakene) Level< 10.0 ug/mL50.0-100.0[facility] HospitalComment on above:Last dose: -Platelet mean volume Auto (Bld) [Entitic vol]Ordered By: Billy Eaton on 94-44-2986Nbkqulol mean volume (Bld) [Entitic vol]8.2 fL6.3-10.7FWexner Medical CenterPlatelets Auto (Bld) [#/Vol]Ordered By: Billy Eaton on 19-58-9568Wcgnnixep (Bld) [#/Vol]346 10*3/iH915-701AjqdtipdnPeoples HospitalProtein [Mass/volume] in Serum or PlasmaOrdered By: Billy Eaton on 51-11-2637Nxcwctx [Mass/Vol]6.6 g/dL6.1-7.9[facility] HospitalRBC Auto (Bld) [#/Vol] Ordered By: Billy Eaton on 14-32-1748ZLU (Bld) [#/Vol]4.66 10*6/uL 3.60-5.00[facility] Hospitalerum or plasma alanine aminotransferase measurement without P-5'-P (enzymatic activiOrdered By: Billy Eaton on 38-44-8598IJK No additional P-5'-P [Catalytic activity/Vol]32 U/R43-14KkaxplebuGuernsey Memorial Hospitalerum or plasma albumin/globulin mass ratioOrdered By: Billy Eaton on 01-26-2022 Albumin/Globulin [Mass ratio]1.2 {ratio}[facility] Hospitalerum or plasma alkaline phosphatase measurement (enzymatic activity/volume)Ordered By: Billy Eaton on 73-57-1866QEY [Catalytic activity/Vol]108 U/L32-92 [facility] Hospitalerum or plasma anion gap determinationOrdered By: Billy Eaton on 94-79-6371Vjegt gap [Moles/Vol]14.9 mmol/L6.0-15.0 [facility] Hospitalerum or plasma aspartate aminotransferase measurement (enzymatic activity/volume)Ordered By: Billy Eaton on 68-59-8985PEJ [Catalytic activity/Vol]24 U/K39-07EtbewevioGuernsey Memorial Hospitalerum or plasma calcium measurement (mass/volume)Ordered By: Billy Eaton on 31-57-1130Laykini [Mass/Vol]9.5 mg/dL8.2-10.2FOhioHealtherum or plasma chloride measurement (moles/volume)Ordered By: Billy Eaton on 50-23-5292Qfczlkmj [Moles/Vol]104 mmol/Z05-238CqenizwzxGuernsey Memorial Hospitalerum or plasma glucose measurement (mass/volume)Ordered By: Billy Eaton on 93-27-0409Thbnpzr [Mass/Vol]100 mg/zU31-308 [facility] HospitalComment on above:ADA recommended reference rangeRandom Glucose Reference Range is dependent on time and content of last meal. Glucose of more than 200 mg/dL in a nonstressed, ambulatory subject supports the diagnosisof Diabetes Mellitus.Serum or plasma potassium measurement (moles/volume)Ordered By: Billy Eaton on 85-69-8253Wcigdvlzr [Moles/Vol]4.0 mmol/L3.5-5.1FOhioHealtherum or plasma sodium measurement (moles/volume)Ordered By: Billy Eaton on 01-26-2022 Sodium [Moles/Vol]134 mmol/I792-335DhrsjexdmGuernsey Memorial Hospitalerum or plasma total bilirubin measurement (mass/volume)Ordered By: Billy Eaton on 72-27-9909Utoedoxbu [Mass/Vol]0.6 mg/dL0.3-1.2FOhioHealtherum or plasma total carbon dioxide measurement (moles/volume) Ordered By: Billy Eaton on 49-96-7002JT1 [Moles/Vol]19.1 mmol/L 22.0-30.0[facility] Hospitalerum or plasma urea nitrogen measurement (mass/volume)Ordered By: Billy Eaton on 29-04-7262Yddi nitrogen [Mass/Vol]6 mg/dL9-[facility] HospitalBody fluid albumin measurement (mass/volume)Ordered By: Billy Eaton on 11-28-2021 Albumin (Body fld) [Mass/Vol]3.7 g/dL3.2-5.5FWexner Medical Center Creatinine and Glomerular filtration rate.predicted panel (S/P/Bld)Ordered By: Billy Eaton on 60-57-4466Cqmjphosdy [Mass/Vol]0.89 mg/dL0.44-1.03 [facility] HospitalEstimated glomerular filtration rate (GFR) non- AmericanOrdered By: Billy Eaton on 08-73-4041SEG/1.73 sq M.predicted among non-blacks MDRD (S/P/Bld) [Vol rate/Area]> 60 mL/MinPeoples HospitalGlobulin Calc (S) [Mass/Vol]Ordered By: Billy Eaton on 67-26-7443Csppjfjz (S) [Mass/Vol]3.2 g/dLPeoples HospitalGlucose mean value [Mass/volume] in Blood Estimated from glycated hemoglobinOrdered By: Billy Eaton on 94-17-7353Jnlkmjq glucose Estimated from glycated hemoglobin (Bld) [Mass/Vol]108 mg/dLPeoples HospitalHemoglobin A1c percentageOrdered By: Billy Eaton on 87-63-1033JzI6j (Bld) [Mass fraction]5.4 %4.3-5.6FWexner Medical CenterComment on above:Increased risk for diabetes: 5.7 - 6.4 diabetes: >6.4 glycemic control for adults with diabetes: <7.0Increased risk for diabetes: 5.7 - 6.4diabetes: >6.4glycemic control for adults with diabetes: <7.0No Panel InformationOrdered By: Billy Eaton on 91-29-7958Zyylapakg GFR ()> 60 mL/MinPeoples HospitalComment on above:GFR estimated reference range: According to KDOQI guidelines, <60 ml/min/1.73m2 is sufficient todiagnose a patient with chronic kidney disease.Pharmacy Creatinine Clearance (ChemN/[facility] CenterValproic Acid (Depakene) Level< 10.0 ug/mL50.0-100.0[facility] HospitalComment on above: Last dose: -Protein [Mass/volume] in Serum or PlasmaOrdered By: Billy Eaton on 16-09-2420Lvtighc [Mass/Vol]6.9 g/dL6.1-7.9[facility] Hospitalerum or plasma alanine aminotransferase measurement without P-5'-P (enzymatic activiOrdered By: Billy Eaton on 98-26-4690IRS No additional P-5'-P [Catalytic activity/Vol]22 U/L74-56HrstjwmpeGuernsey Memorial Hospitalerum or plasma albumin/globulin mass ratioOrdered By: Billy Eaton on 68-82-0162Btquplg/Globulin [Mass ratio]1.2 {ratio}[facility] Hospitalerum or plasma alkaline phosphatase measurement (enzymatic activity/volume)Ordered By: Billy Eaton on 79-68-1986IMU [Catalytic activity/Vol]102 U/U14-36NwnuwtohcGuernsey Memorial Hospitalerum or plasma aspartate aminotransferase measurement (enzymatic activity/volume)Ordered By: Billy Eaton on 06-66-1614AZK [Catalytic activity/Vol]21 U/L10-42 [facility] Hospitalerum or plasma calcium measurement (mass/volume)Ordered By: Billy Eaton on 05-90-8933Vjnyszb [Mass/Vol] 9.9 mg/dL8.2-10.2FOhioHealtherum or plasma chloride measurement (moles/volume)Ordered By: Billy Eaton on 11-28-2021 Chloride [Moles/Vol]105 mmol/O59-625EequabgfcGuernsey Memorial Hospitalerum or plasma glucose measurement (mass/volume)Ordered By: Billy Eaton on 66-93-4725Tcxhudh [Mass/Vol]98 mg/vF26-406UjyhnmctzPeoples Hospital Comment on above:ADA recommended reference range Random [...] potassium measurement (moles/volume)Ordered By: Billy Eaton on 40-09-3452Ipiukoxoi [Moles/Vol]3.9 mmol/L3.5-5.1 [facility] Hospitalerum or plasma sodium measurement (moles/volume)Ordered By: Billy Eaton on 89-27-5601Aepugi [Moles/Vol] 137 mmol/F865-612FdcolhlliGuernsey Memorial Hospitalerum or plasma total bilirubin measurement (mass/volume)Ordered By: Billy Eaton on 21-43-3243Mhlcldbrt [Mass/Vol]0.4 mg/dL0.3-1.2FWexner Medical Center Serum or plasma total carbon dioxide measurement (moles/volume)Ordered By: Billy Eaton on 05-52-6436VR3 [Moles/Vol]21.3 mmol/L22.0-30.0[facility] Hospitalerum or plasma urea nitrogen measurement (mass/volume) Ordered By: Billy Eaton on 11-30-6860Vpbx nitrogen [Mass/Vol]10 mg/dL 12-29Peoples HospitalBody fluid albumin measurement (mass/volume)Ordered By: Billy Eaton on 90-61-1185Ibmoccd (Body fld) [Mass/Vol]3.5 g/dL3.2-5.5FWexner Medical CenterCreatinine and Glomerular filtration rate.predicted panel (S/P/Bld)Ordered By: Billy Eaton on 74-98-1439Xaxgvcvbqm [Mass/Vol]0.92 mg/dL0.44-1.03Peoples HospitalEstimated glomerular filtration rate (GFR) non- AmericanOrdered By: Billy Eaton on 98-05-6634MSJ/1.73 sq M.predicted among non-blacks MDRD (S/P/Bld) [Vol rate/Area]> 60 mL/MinPeoples HospitalGlobulin Calc (S) [Mass/Vol]Ordered By: Billy Eaton on 27-94-2392Ktlezico (S) [Mass/Vol]2.9 g/dLPeoples Hospital Glucose mean value [Mass/volume] in Blood Estimated from glycated hemoglobin Ordered By: Billy Eaton on 17-63-9063Pbxohqu glucose Estimated from glycated hemoglobin (Bld) [Mass/Vol]108 mg/dLPeoples Hospital Hemoglobin A1c percentageOrdered By: Billy Eaton on 87-65-7984MrC8n (Bld) [Mass fraction]5.4 %4.3-5.6FWexner Medical CenterComment on above:Increased risk for diabetes: 5.7 - 6.4 diabetes: >6.4 glycemic control for adults with diabetes: <7.0No Panel InformationOrdered By: Billy Eaton on 14-01-7476Joewslejs GFR ()> 60 mL/Min Peoples HospitalComment on above:GFR estimated reference range: According to KDOQI guidelines, <60 ml/min/1.73m2 is sufficient todiagnose a patient with chronic kidney disease.Pharmacy Creatinine Clearance (ChemN/A Peoples HospitalValproic Acid (Depakene) Level< 10.0 ug/mL 50.0-100.0Peoples HospitalComment on above:Last dose: -Protein [Mass/volume] in Serum or PlasmaOrdered By: Billy Eaton on 10-16-2021 Protein [Mass/Vol]6.4 g/dL6.1-7.9[facility] Hospitalerum or plasma alanine aminotransferase measurement without P-5'-P (enzymatic activi Ordered By: Billy Eaton on 49-73-2278BMU No additional P-5'-P [Catalytic activity/Vol]20 U/D84-18ZgshjmojbGuernsey Memorial Hospitalerum or plasma albumin/globulin mass ratioOrdered By: Billy Eaton on 22-26-7874Yvxpwpo/Globulin [Mass ratio]1.2 {ratio}[facility] Hospitalerum or plasma alkaline phosphatase measurement (enzymatic activity/volume)Ordered By: Billy Eaton on 16-09-2844YGR [Catalytic activity/Vol]96 U/O56-17AjbevxdfnGuernsey Memorial Hospitalerum or plasma aspartate aminotransferase measurement (enzymatic activity/volume)Ordered By: Billy Eaton on 13-04-9909VPH [Catalytic activity/Vol]19 U/L10-42 [facility] Hospitalerum or plasma calcium measurement (mass/volume)Ordered By: Billy Eaton on 69-33-6672Zcdyfiu [Mass/Vol] 9.5 mg/dL8.2-10.2FOhioHealtherum or plasma chloride measurement (moles/volume)Ordered By: Billy Eaton on 10-16-2021 Chloride [Moles/Vol]107 mmol/B84-523XogkxaupaGuernsey Memorial Hospitalerum or plasma glucose measurement (mass/volume)Ordered By: Billy Eaton on 47-41-8126Raokkdk [Mass/Vol]104 mg/gU55-418BazyqiwnrPeoples Hospital Comment on above:ADA recommended reference range Random Glucose Reference Range is dependent on time and content of last meal. Glucose of more than 200 mg/dL in a nonstressed, ambulatory subject supports the diagnosis of Diabetes Mellitus.Serum or plasma potassium measurement (moles/volume)Ordered By: Billy Eaton on 80-95-7001Pepevoikj [Moles/Vol]4.2 mmol/L3.5-5.1FOhioHealtherum or plasma sodium measurement (moles/volume)Ordered By: Billy Eaton on 10-16-2021 Sodium [Moles/Vol]136 mmol/K453-042DgnlommddGuernsey Memorial Hospitalerum or plasma total bilirubin measurement (mass/volume)Ordered By: Billy Eaton on 16-93-6386Rpakqqhwa [Mass/Vol]0.2 mg/dL0.3-1.2FOhioHealtherum or plasma total carbon dioxide measurement (moles/volume) Ordered By: Billy Eaton on 65-38-8301HW5 [Moles/Vol]20.9 mmol/L 22.0-30.0[facility] Hospitalerum or plasma urea nitrogen measurement (mass/volume)Ordered By: Billy Eaton on 62-36-7212Mcca nitrogen [Mass/Vol]5 mg/dL9-Peoples HospitalComplete Blood Count with Auto Diffon 75-55-0952Iwelrgpzl (Bld) [#/Vol]0.05 10*3/uLNormal 0.00-0.20[facility] SpecialistComment on above:Performed By: #### VITD, CBCAD, CMP, LIPD #### [facility] [address] [place], [place] [id number]/100 WBC (Bld)0.9 %NormalParkview Health Mont[facility] Hospital SpecialistComment on above:Performed By: #### VITD, CBCAD, CMP, LIPD #### [facility] [address] [place], [place] [id number] (Bld) [#/Vol]0.20 10*3/uLNormal0.02-0.50NoRegional Medical Center SpecialistComment on above:Performed By: #### VITD, CBCAD, CMP, LIPD #### [facility] [address] [place], [place] [id number]/100 WBC (Bld)3.5 %NormalParkview Health [facility] Hospital SpecialistComment on above:Performed By: #### VITD, CBCAD, CMP, LIPD #### [facility] [address] [place], [place] [id number] distribution width (RBC) [Ratio]14.3 %Normal 11.0-15.0[facility] SpecialistComment on above:Performed By: #### VITD, CBCAD, CMP, LIPD #### [facility] [address] [place], [place] [id number] (Bld) [Volume fraction]39.7 %Xihkcu34.0-47.0 [facility] SpecialistComment on above:Performed By: #### VITD, CBCAD, CMP, LIPD #### [facility] [address] [place], [place] [id number] (Bld) [Mass/Vol]12.7 g/vPEtsecr04.6-15.5[facility] SpecialistComment on above:Performed By: #### VITD, CBCAD, CMP, LIPD #### [facility] [address] [place], [place] [id number] (Bld) [#/Vol]2.8 10*3/uLNormal0.9-3.9NoRegional Medical Center SpecialistComment on above:Performed By: #### VITD, CBCAD, CMP, LIPD #### [facility] [address] [place], [place] [id number]/100 WBC (Bld)49.0 %NormalParkview Health [facility] SpecialistComment on above:Performed By: #### VITD, CBCAD, CMP, LIPD #### [facility] [address] [place], [place] [id number] (RBC) [Entitic mass]26.2 pgLow27.0-33.0NoRegional Medical Center SpecialistComment on above:Performed By: #### VITD, CBCAD, CMP, LIPD #### [facility] [address] [place], [place] [id number] (RBC) [Mass/Vol]32.0 g/cHKhjhmo36.0-36.0NoRegional Medical Center SpecialistComment on above:Performed By: #### VITD, CBCAD, CMP, LIPD #### [facility] [address] [place], [place] [id number] (RBC) [Entitic vol]82 yOAgflmu60-743Qfhdszno [place] [facility] SpecialistComment on above:Performed By: #### VITD, CBCAD, CMP, LIPD #### [facility] [address] [place], [place] [id number] (Bld) [#/Vol]0.5 10*3/uLNormal0.2-0.9NoRegional Medical Center SpecialistComment on above:Performed By: #### VITD, CBCAD, CMP, LIPD #### [facility] [address] [place], [place] [id number]/100 WBC (Bld)9.2 %NormalKaiser Frem[facility] Center [place] [facility] SpecialistComment on above:Performed By: #### VITD, CBCAD, CMP, LIPD #### [facility] [address] [place], [place] [id number] (Bld) [#/Vol]2.1 10*3/uLNormal1.5-7.8NoRegional Medical Center SpecialistComment on above:Performed By: #### VITD, CBCAD, CMP, LIPD #### [facility] [address] [place], [place] [id number]/100 WBC (Bld)37.2 %[facility] SpecialistComment on above:Performed By: #### VITD, CBCAD, CMP, LIPD #### [facility] [address] [place], [place] [id number] mean volume (Bld) [Entitic vol]10.40 fLNormal 7.50-12.50NoRegional Medical Center SpecialistComment on above:Performed By: #### VITD, CBCAD, CMP, LIPD #### [facility] [address] [place], [place] [id number] (Bld) [#/Vol]378 10*3/wGAtwuxn800-809Hbvymxdg [facility] SpecialistComment on above:Performed By: #### VITD, CBCAD, CMP, LIPD #### [facility] [address] [place], [place] [id number] (Bld) [#/Vol]4.85 10*6/uLNormal3.90-5.20NoRegional Medical Center SpecialistComment on above:Performed By: #### VITD, CBCAD, CMP, LIPD #### [facility] [address] [place], [place] [id number]-BR67.8 oKIzqpfl31.0-50.0NoRegional Medical Center Specialist Comment on above:Performed By: #### VITD, CBCAD, CMP, LIPD #### [facility] [address] [place], [place] [id number] (Bld) [#/Vol]5.7 10*3/uLNormal3.8-11.0NoRegional Medical Center SpecialistComment on above:Performed By: #### VITD, CBCAD, CMP, LIPD #### [facility] [address] [place], [place] [id number] Metabolic Panelon 93-69-6902Ucupegm [Mass/Vol] 4.4 g/dLNormal3.6-5.1[facility] SpecialistComment on above:Performed By: #### VITD, CBCAD, CMP, LIPD #### [facility] [address] [place], [place] [id number]/Globulin [Mass ratio]1.5 {ratio}Normal1.0-2.5NoRegional Medical Center SpecialistComment on above:Performed By: #### VITD, CBCAD, CMP, LIPD #### [facility] [address] [place], [place] [id number] [Catalytic activity/Vol]114 U/ESgtcwg93-088Kxmacrge [place] [facility] SpecialistComment on above:Performed By: #### VITD, CBCAD, CMP, LIPD #### [facility] [address] [place], [place] [id number] [Catalytic activity/Vol]32 U/LNormal6-33NoRegional Medical Center SpecialistComment on above:Result Comment: 03/08/2021 Female reference range changed.Performed By: #### VITD, CBCAD, CMP, LIPD #### [facility] [address] [place], [place] [id number] gap [Moles/Vol]19 mmol/FSsmyrv78-45Xrjgnvfd [place] [facility] SpecialistComment on above:Result Comment: Effective 04/13/2019 reference range changed.Performed By: #### VITD, CBCAD, CMP, LIPD #### [facility] [address] [place], [place] [id number] [Catalytic activity/Vol]22 U/LNormal9-34NoRegional Medical Center SpecialistComment on above:Performed By: #### VITD, CBCAD, CMP, LIPD #### [facility] [address] [place], [place] [id number] [Mass/Vol]0.31 mg/dLNormal0.30-1.20NortMount St. Mary Hospital Medical SpecialistComment on above:Performed By: #### VITD, CBCAD, CMP, LIPD #### [facility] [address] [place], [place] [id number]/CREA13 RatioNormal6-22NoMoreno Valley [facility] Occupational Therapy Program Director Comment on above:Performed By: #### VITD, CBCAD, CMP, LIPD #### [facility] [address] [place] [id number] [Mass/Vol]9.6 mg/dLNormal8.6-10.2[facility] [place] [facility] SpecialistComment on above:Performed By: #### VITD, CBCAD, CMP, LIPD #### [facility] [address] [place], [place] [id number] [Moles/Vol]104 mmol/TGzvbtj98-514Pfccspxq [place] [facility] SpecialistComment on above:Performed By: #### VITD, CBCAD, CMP, LIPD #### [facility] [address] [place], [place] [id number] [Moles/Vol]18 mmol/KYag81-14FrxcaosrRegional Medical Center SpecialistComment on above:Performed By: #### VITD, CBCAD, CMP, LIPD #### [facility] [address] [place], [place] [id number] [Mass/Vol]0.9 mg/dLNormal0.6-1.4NortMount [address] Mary Hospital Medical SpecialistComment on above:Performed By: #### VITD, CBCAD, CMP, LIPD #### [facility] [address] [place], [place] [id number] mL/min/1.12m0Xfjhjo>60Nortverde valley medical centern [facility] SpecialistComment on above:Performed By: #### VITD, CBCAD, CMP, LIPD #### [facility] [address] [facility] [address] [place] [id number] mL/min/1.26j8Ldfoqa>60[facility]ver[facility]ern [facility] SpecialistComment on above:Performed By: #### VITD, CBCAD, CMP, LIPD #### [facility] [address] [place], [place] [id number] (S) [Mass/Vol]2.9 g/dLNormal1.9-3.7Nortverde valley medical centern [facility] SpecialistComment on above:Performed By: #### VITD, CBCAD, CMP, LIPD #### [facility] [address] [place], [place] [id number] [Mass/Vol]98 mg/qXChfkav98-36Ogrjpfnz [place] [facility] SpecialistComment on above:Result Comment: For FASTING Glucose --- ADA reference ranges: Normal 65-99 mg/dl Prediabetes 100-125 Diabetes >/= 126Performed By: #### VITD, CBCAD, CMP, LIPD #### [facility] [address] [place], [place] [id number] [Moles/Vol]4.3 mmol/LNormal3.5-5.5NortTrumbull Regional [facility] Center SpecialistComment on above:Performed By: #### VITD, CBCAD, CMP, LIPD #### [facility] [address] [place], [place] [id number] [Mass/Vol]7.3 g/dLNormal6.1-8.1[facility] SpecialistComment on above:Performed By: #### VITD, CBCAD, CMP, LIPD #### [facility] [address] [place], [place] [id number] [Moles/Vol]137 mmol/FXkbyge250-445Bwrckmqe [place] [facility] SpecialistComment on above:Performed By: #### VITD, CBCAD, CMP, LIPD #### [facility] [address] [place], [place] [id number] nitrogen [Mass/Vol]11 mg/dLNormal7-25NortTrumbull Regional [facility] Center SpecialistComment on above:Performed By: #### VITD, CBCAD, CMP, LIPD #### [facility] [address] [place], [place] [id number] A1Con 82-36-2480LBK81.67NoThe [facility] SpecialistComment on above:Performed By: #### A1C #### [facility] [address] [place], [place] [id number] (Bld) [Mass fraction]5.1 %Normal4.0-6.0NoRegional Medical Center SpecialistComment on above:Performed By: #### A1C #### [facility] [address] [place], [place] [id number] Panelon 57-59-3212Bglocewmkxv [Mass/Vol]242 mg/dLHigh 125-200NoKindred Hospital LimaComment on above:Result Comment: Low risk < 200mg/dL Borderline risk 201-239 mg/dl High risk > or equal to 240Performed By: #### VITD, CBCAD, CMP, LIPD #### [facility] [address] [place], [place] [id number] in HDL [Mass/Vol]44 mg/dLNormal>40NoKindred Hospital LimaComment on above:Result Comment: High Cardiovascular Risk HDL <40 mg/dL Low Cardiovascular Risk HDL > or equal to 60 mg/dlPerformed By: #### VITD, CBCAD, CMP, LIPD #### [facility] [address] [place], [place] [id number] in LDL [Mass/Vol]160 mg/dLNoThe Christ Hospital SpecialistComment on above:Result Comment: LDL ATP III CLASSIFICATION LDL less than 100 mg/dl Optimal LDL 100-129 mg/dl Near or above optimal LDL 130-159 Borderline high LDL 160-189 High LDL greater than 189 mg/dl Very HighPerformed By: #### VITD, CBCAD, CMP, LIPD #### [facility] [address] [place], [place] [id number] in VLDL [Mass/Vol]38 mg/dLNoThe Christ Hospital SpecialistComment on above:Performed By: #### VITD, CBCAD, CMP, LIPD #### [facility] [address] [place], [place] [id number].total/Cholesterol in HDL [Mass ratio]6 {ratio} NormalNorthern [facility] SpecialistComment on above:Performed By: #### VITD, CBCAD, CMP, LIPD #### [facility] [address] [place], [place] [id number] [Mass/Vol]188 mg/aIDtub96-689Staqapgo [facility] SpecialistComment on above:Result Comment: TRIG ATPIII CLASSIFICATIONS TRIG less than 150 mg/dl Normal TRIG 150-199 mg/dl Borderline High TRIG 200-500 mg/dl High TRIG greather than 500 mg/dl Very HighPerformed By: #### VITD, CBCAD, CMP, LIPD #### [facility] [address] [place], [place] [id number] - CULTURE,URINE,ROUTINEon 78-04-2680PKHYDZA, URINE, ROUTINE SEE NOTENormalNortverde valley medical centern [facility] SpecialistComment on above:Order Comment: [facility] performed at: [employer], [address] [place] [address], [address] [place] [address], [id number], Open Cut Examiner: Kwaku Naylor MD [facility] Collection Date/Time: [facility] Results Received Date/Time: [facility] Reported Date/Time: [id number] Comment: CULTURE, URINE, ROUTINE Micro Number: [id number] Test Status: Final Specimen Source: Urine Specimen Quality: Adequate Result: Mixed genital ed isolated. These superficial bacteria are not indicative of a urinary tract infection. No further organism identification is warranted on this specimen. If clinically indicated, recollect clean-catch, mid-stream urine and transfer immediately to Urine Culture Transport Tube.Performed By: #### 6304R, [id number] #### [facility] [address] [place], [place] [address]S - TESTOSTERONE TOTAL LC/MS/MSon 48-24-2796INDRUTCBMUBU, TOTAL, MS21 ng/dLNormal2-45[facility] SpecialistComment on above:Order Comment: [facility] performed at: [employer], [address], [place], [place], , Open Cut Examiner: Cheikh Gan M.D.,PhD [facility] Collection Date/Time: [id number] [facility] Results Received Date/Time: [id number] [facility] Reported Date/Time: [id number] Comment: For additional information, please refer to http://education.[employer]/faq/ [email or web address] (This link is being provided for informational/ educational purposes only.) This test was developed and its analytical performance characteristics have been determined by [employer] [place], [place]. It has not been cleared or approved by the U.S. Food and Drug Administration. This assay has been validated pursuant to the CLIA regulations and is used for clinical purposes.Performed By: #### 6304R, 40993J #### [facility] [address] [place], [place] [address]Qemhmct D 25-OHon 17-18-2157BPL D 25 OH23 ng/mlLow>29[facility] SpecialistComment on above:Result Comment: Vitamin D Status Deficiency <20 ng/mL Insufficiency 20-29 ng/mL Optimal 30-100 ng/mL Possible Toxicity >=150 ng/mLPerformed By: #### VITD, CBCAD, CMP, LIPD #### [facility] [address] [place], [place] [id number] Therapy Noteon 88-29-5099Faonryam Therapy Note [id number]#1.00[facility] Consent Formson 77-51-5932Mhxbugg Forms [id number]#1.00[facility] Provider Orderson 26-29-5804Baksajnv Orders [id number]#1.00[facility] Coding Summaryon 00-12-4912Fkcgev SummaryHTMLBase 64 MdhkqnraCXn3hIh+PGhlYWQ+VE2NVAVqV65zqBUzgN0YA3bIGC0BWIJNPBVTIG2WPC7erGP5VBoyC7Ry biAv [file] IHN (more content not included)...[facility] HospitalProvider Orderson 29-55-9445Xcfiruai [id number]#1.00OTGTIFF [facility] HospitalProvider Orderson 93-50-2329Rklkvjzy Orders [id number]#1.00OTGTIFFZanesville City Hospital Vital Signs Date TimeVital SignValuePerforming CfsssrdapNblekoau28-00-6162 14:13-0400 Diastolic blood rnadttqb27 mm[Hg]Janneth Evangelistahalie DO Work Phone: [phone] [place], [place] 5837410-08-2025 14:13-0400 Heart rate86 /Davida. Mulugeta Evangelistahalie DO Work Phone: [phone] [place], [place] 5837410-08-2025 14:13-0400 Systolic blood nzuemvli965 mm[Hg]Janneth Wileynahomy DO Work Phone: [phone] [place], [place] 5837410-08-2025 13:24-0400 Body vyiteh049.1 cmG. Mulugeta Ramirez DO Work Phone: [phone] [place], [place] 5837410-08-2025 13:24-0400 Body mass index (BMI) [Ratio]36.1 kg/m2G. Mulugeta Ramirez DO Work Phone: [phone] [place], [place] 5837410-08-2025 13:24-0400 Body .42 kgG. Mulugeta Ramirez DO Work Phone: [phone] [place], [place] 5837410-08-2025 13:24-0400 Respiratory rate18 /Davida. Mulugeta Wileynahomy DO Work Phone: [phone] [place], [place] 5837410-08-2025 13:24-0400 SaO2% (BldA) [Mass fraction]98 %Janneth Wileynahomy DO Work Phone: [phone])[address] [place], [place] 5837410-02-2025 14:49-0400 Body .1 cmG. Mulugeta Ramirez DO Work Phone: [phone] [place], [place] 5837410-02-2025 14:49-0400 Body mass index (BMI) [Ratio]36.2 kg/m2G. Mulugeta Ramirez DO Work Phone: [phone] [place], [place] 5837410-02-2025 14:49-0400 Body ynvbkc76.7 kgG. Mulugeta Ramirez DO Work Phone: [phone] [place], [place] 5837406-25-2025 16:07-0400 Body lradcp199.1 cmG. Mulugeta Ramirez DO Work Phone: [phone] [place], [place] 5837406-25-2025 16:07-0400 Body mass index (BMI) [Ratio]36.8 kg/m2G. Mulugeta Ramirez DO Work Phone: [phone] [place], [place] 5837406-25-2025 16:07-0400 Body mnpbap771.24 kgG. Muulgeta Ramirez DO Work Phone: [phone] [place], [place] 5837406-25-2025 16:07-0400 Diastolic blood baaxqqel22 mm[Hg]GJillian Ramirez DO Work Phone: [phone] [place], [place] 5837406-25-2025 16:07-0400 Heart rate87 /Davida. Mulugeta Ramirez DO Work Phone: [phone] [place], [place] 5837406-25-2025 16:07-0400 Respiratory rate16 /Davida. Mulugeta Ramirez DO Work Phone: [phone] [place], [place] 5837406-25-2025 16:07-0400 SaO2% (BldA) [Mass fraction]98 %GJillian Ramirez DO Work Phone: 1(978)[address] [place], [place] 5837406-25-2025 16:07-0400 Systolic blood pzemeqkp090 mm[Hg]GJillian Ramirez DO Work Phone: [phone] [place], [place] 5837405-11-2025 16:26-0400 Body jsvkpe749.1 cmG. Mulugeta Ramirez DO Work Phone: [phone] [place], [place] 5837405-11-2025 16:26-0400 Body jbfgrojuwas71.2 [degF]Janneth Ramirez DO Work Phone: [phone] [place], [place] 5837405-11-2025 16:26-0400 Body sxeknk54.6 kgG. Mulugeta Ramirez DO Work Phone: [phone] [place], [place] 5837405-11-2025 16:26-0400 Diastolic blood iubhvsqu34 mm[Hg]Janneth Raimrez DO Work Phone: [phone] [place], [place] 5837405-11-2025 16:26-0400 Heart rate75 /Davida. Mulugeta Ramirez DO Work Phone: [phone] [place], [place] 5837405-11-2025 16:26-0400 Respiratory rate24 /Davida. Mulugeta Ramirez DO Work Phone: [phone] [place], [place] 5837405-11-2025 16:26-0400 SaO2% (BldA) [Mass fraction]97 %Janneth Ramirez DO Work Phone: [phone])[address] [place], [place] 5837405-11-2025 16:26-0400 Systolic blood mocrxtoz157 mm[Hg]Janneth Ramirez DO Work Phone: [phone] [place], [place] 5837401-21-2025 11:50-0500 Diastolic blood urlcxvgy69 mm[Hg]Janneth Ramirez DO Work Phone: [phone] [place], [place] 5837401-21-2025 11:50-0500 Heart rate69 /Davida. Mulugeta Ramirez DO Work Phone: [phone] [place], [place] 5837401-21-2025 11:50-0500 Respiratory rate16 /Davida. Mulugeta Ramirez DO Work Phone: [phone] [place], [place] 5837401-21-2025 11:50-0500 SaO2% (BldA) [Mass fraction]95 %Janneth Ramirez DO Work Phone: [phone] [place], [place] 5837401-21-2025 11:50-0500 Systolic blood xogvwtip174 mm[Hg]Janneth Ramirez DO Work Phone: [phone] [place], [place] 5837401-21-2025 10:20-0500 Body ifnmrgfbtie25.7 [degF]Janneth Ramirez DO Work Phone: [phone] [place], [place] 5837401-21-2025 10:20-0500 Inhaled oxygen flow rate8 L/Davida. Mulugeta Ramirez DO Work Phone: [phone] [place], [place] 5837401-21-2025 07:21-0500 Body .1 cmG. Mulugeta Ramirez DO Work Phone: [phone] [place], [place] 5837401-21-2025 07:21-0500 Body oartxa15.79 kgG. Mulugeta Ramirez DO Work Phone: [phone] [place], [place] 5837412-12-2024 11:21-0500 Body nirtgw069.1 cmG. Mulugeta Ramirez DO Work Phone: [phone] [place], [place] 5837412-12-2024 11:21-0500 Body gamglyogglo55.9 [degF]Janneth Ramirez DO Work Phone: [phone] [place], [place] 5837412-12-2024 11:21-0500 Body donfuu06 kgG. Mulugeta Ramirez DO Work Phone: [phone] [place], [place] 5837412-12-2024 11:21-0500 Diastolic blood mm[Hg]Janneth Ramirez DO Work Phone: 1([phone] [place], [place] 5837412-12-2024 11:21-0500 Heart rate75 /Davida. Mulugeta Ramirez DO Work Phone: [phone] [place], [place] 5837412-12-2024 11:21-0500 SaO2% (BldA) [Mass fraction]96 %Janneth Ramirez DO Work Phone: [phone])[address] [place], [place] 5837412-12-2024 11:21-0500 Systolic blood uffrtlda491 mm[Hg]Janneth Ramirez DO Work Phone: [phone] [place], [place] 5837410-13-2024 18:29-0400 Diastolic blood mm[Hg]DO Janneth Ramirez Work Phone: [phone] [place], [place] 5837410-13-2024 18:29-0400 Heart rate68 /minDO Janneth Ramirez Work Phone: 1([phone] [place], [place] 5837410-13-2024 18:29-0400 Respiratory rate16 /minDO Janneth Ramirez Work Phone: [phone] [place], [place] 5837410-13-2024 18:29-0400 SaO2% (BldA) [Mass fraction]99 %DO Janneth Ramirez Work Phone: 1(915)[address] [place], [place] 5837410-13-2024 18:29-0400 Systolic blood kzprvdva007 mm[Hg]DO Janneth Ramirez Work Phone: 1([phone] [place], [place] 5837410-13-2024 16:11-0400 Body sjrenu992.37 cmDO Janneth Ramirez Work Phone: 1(768)[address] [place], [place] [id number] 16:11-0400 Body ifkeohmntwg60.1 [degF]DO Janneth Ramirez Work Phone: 1(724)[address] [place], [place] [id number] 16:11-0400 Body lteabx67 kgDO Janneth Ramirez Work Phone: 1(775)[address] [place], [place] [id number] 12:24-0400 Body qtfkme457.37 cmDO Janneth Ramirez Work Phone: 1(052)[address] [place], [place] [id number] 12:24-0400 Body kbkqgjxbikt71.5 [degF]DO Janneth Ramirez Work Phone: 1(360)[address] [place], [place] [id number] 12:24-0400 Body kgDO Janneth Ramirez Work Phone: 1(139)[address] [place], [place] [id number] 12:24-0400 Diastolic blood jgskcomc16 mm[Hg]DO Janneth Ramirez Work Phone: 1(595)[address] [place], [place] [id number] 12:24-0400 Heart rate73 /minDO Janneth Ramirez Work Phone: 1(763)[address] [place], [place] [id number] 12:24-0400 Respiratory rate17 /minDO Janneth Ramirez Work Phone: 1(887)[address] [place], [place] [id number] 12:24-0400 SaO2% (BldA) [Mass fraction]96 %DO Janneth Ramirez Work Phone: [phone] [address] [place], [place] 5837405-25-2024 12:24-0400 Systolic blood mm[Hg]DO Janneth Ramirez Work Phone: [phone] [place], [place] 5837410-31-2022 19:35-0400 Body zraakdkumxi70.9 [degF]DO Janneth Ramirez Work Phone: [phone] [place], [place] 5837410-31-2022 19:35-0400 Diastolic blood lyevojgh91 mm[Hg]DO Janneth Ramirez Work Phone: [phone] [place], [place] 5837410-31-2022 19:35-0400 Heart jnhk933 /minDO Janneth Ramirez Work Phone: [phone] [place], [place] 5837410-31-2022 19:35-0400 Respiratory rate18 /minDO Janneth Ramirez Work Phone: [phone] [place], [place] 5837410-31-2022 19:35-0400 SaO2% (BldA) [Mass fraction]96 %DO Janneth Ramirez Work Phone: [phone] [place], [place] 5837410-31-2022 19:35-0400 Systolic blood wuyrswxp420 mm[Hg]DO Janneth Ramirez Work Phone: [phone] [place] [address] Encounters Encounter DateEncounter TypeCare ProviderFacilityStart: 84-17-5266kswztwkrdb Jacklyn TannaFacility:KAYDEN SanduskyStart: 14-27-1214flowowfggtQJillian Mulugeta Ramirez [facility]20[facility] End: 99-91-9985qwwyxzkrwcFYBNKTNPD H SMITHNot AvailableStart: 01-14-2025 End: 44-76-8590ukdpfxqjabWjpfvi TannaFacility:EU [place]uskyStart: 01-14-2025 End: 41-36-1557Whtvjbd encounter procedureJacklyn Vieiraa [facility] Start: 01-13-2025 End: 29-11-4238shpeaejwajU. Mulugeta Ramirez DO Work Phone: [facility] Work Phone: Start: 01-13-2025 End: 00-09-5647Tyohhaz encounter procedureSyelitza Delatorre APRN-FNP-C-[facility] [place] Work Phone: Start: 01-07-2025 End: 24-42-3879nlajvihcxrH. Mulugeta Ramirez DO Work Phone: [facility] Work Phone: Start: 01-07-2025 End: 41-42-3594Mwsgxlq encounter procedureTheo Cerna MD-[facility] Neurosurgery Work Phone: start: 01-06-2025 End: 79-52-2552lbjcizbpuqCPRPJT R KAFTANNot AvailableStart: 61-19-0133Pobalgomjj Chanda Eaton [facility] CredibleStart: 12-24-2024 End: 36-98-5078fsprglnvodXLJUEF P JONESNot AvailableStart: 10-28-2024 End: 86-24-6977Xnixugv encounter procedureSyelitza Delatorre APRN-FNP-C-[facility] [place] Work Phone: Start: 10-28-2024 End: 53-95-5018fvrgayyyznV. Mulugeta Ramirez DO Work Phone: [facility] Work Phone: Start: 05-74-7629Yxf-patient / Non-visitTiffany [facility] Neurology Work Phone: Start: 09-30-2024 End: 99-44-2143xbqgkymozpO. Mulugeta Evangelistahalie DO Work Phone: [facility] Work Phone: Start: 09-30-2024 End: 93-22-8477Iqbupdy encounter procedureSyelitza Delatorre PTXV-AJB-J-[facility] [place] Work Phone: Start: 42-55-8653Fcwgpnpalf RecurringBilly WEST CredibleStart: 09-10-2024 End: 23-79-4010ouwhswgivxKEPIWHI R LACONISNot AvailableStart: 09-03-2024 End: 99-27-7326sluihmddhxRXUIYNGF E PERRYFacility:EU BellevueStart: 09-03-2024 End: 45-10-9878Mziiuue encounter procedureJENNIFER E GILDA [facility] start: 09-02-2024 End: 75-73-4848ibbqmgbxnkVPXECR Jordyn CARTWRIGHTNot AvailableStart: 08-26-2024 End: 67-84-4196eclyfqjuhqDPQTHPS Livia SHAFFERNot AvailableStart: 08-26-2024 End: 08-01-0954ltjzzzlzaoFFKSKZ R KAFTANNot AvailableStart: 08-16-2024 End: 81-54-2307Eyqnpfnlt department patient visitG. Mulugeta Ramirez DO Work Phone: [facility]-Emergency Room Work Phone: Start: 99-64-3291Dtpnehiitp RecurringG. Mulugeta Ramirez DO Work Phone: [facility]- CredibleStart: 07-30-2024 End: 51-13-3756kpabtnlpzqPBMYE CARROLLNot AvailableStart: 06-25-2024 End: 43-53-7198yeseotzursBULXF D CARROLLFacility:EU BellevueStart: 06-18-2024 End: 79-01-7132vxwugnvogwUQIAO CARROLLFacility:EU BellevueStart: 06-11-2024 End: 23-82-3518ubkjjlioczDFGESNXPTUO HASSETTNot AvailableStart: 05-28-2024 Registered RecurringG. Mulugeta Ramirez DO Work Phone: [facility] CredibleStart: 36-04-8619kudvlvgputGxazuy TannaFacility:EU BellevueStart: 05-13-2024 End: 28-82-9069ajcslouqmfAPISTYQ H ITROMÁNNot AvailableStart: 04-28-2024 End: 42-70-0906Xyqvudiky to same day surgery centerG. Mulugeta Ramirez DO Work Phone: [facility]Start: 04-28-2024 End: 69-22-4754rfgjvlkpusV. Mulugeta Ramirez DO Work Phone: [phone] [place] [address] Work Phone: Start: 23-27-8989Jsphkvlkml RecurringG. Mulugeta Ramirez DO Work Phone: [facility] CredibleStart: 04-03-2024 End: 66-37-0481krevxwkekkK. Mulugeta Ramirez DO Work Phone: [phone] [place] [address] Work Phone: Start: 04-03-2024 End: 18-84-1598Xrvepfyv ReferredG. Mulugeta Ramirez DO Work Phone: [facility] CampusStart: 03-19-2024 End: 08-34-0544Xykxlwmy ReferredG. Mulugeta Ramirez DO Work Phone: [facility]-Pre-Surgical Testing Work Phone: Start: 03-19-2024 End: 10-16-5259goymugyjpkIulatoryG. Mulugeta RmairezFacility:[facility]tart: 03-11-2024 End: 55-01-3631vwerogqxdfOXNUMYP Flaquito Wilmar AvailableStart: 01-29-2024 End: 50-63-7721pnzurrnrcjWQEZWL R KAFTANNot AvailableStart: 01-19-2024 End: 65-73-2989Xxnkrrdnr department patient visitDO Janneth Ramirez Work Phone: [facility]-Emergency Room Work Phone: Start: 40-34-3190Zzfilcxrpl RecurringDO Janneth Ramirez Work Phone: [facility]- CredibleStart: 08-31-2023 End: 74-36-6000Snjrnvsfq department patient visitDO Janneth Ramirez Work Phone: [facility]-Emergency Room Work Phone: Start: 79-45-4549Ixvplqorko RecurringDO Janneth Ramirez Work Phone: [facility]- CredibleStart: 12-24-2022 End: 47-08-3266iocjcywsfuCP G. Robert Kaftan Work Phone: [facility] Work Phone: Start: 12-24-2022 End: 67-99-0003Mfxgynz encounter procedureDO Janneth Ramirez Work Phone: [facility]-Physical Therapy [address] RdStart: 02-05-2022 End: 06-17-4681Ddapbgfxh department patient visitDO Janneth Ramirez Work Phone: [facility]-Emergency RoomStart: 01-26-2022 End: 05-85-3650jnqanadpuxQW G. Robert Kaftan Work Phone: [facility] Work Phone: Start: 01-26-2022 End: 71-37-5308Zhylrmq encounter procedureDO Janneth Ramirez Work Phone: [facility] HospitalStart: 11-28-2021 End: 44-01-2606Pqvgzau encounter procedureDO Janneth Ramirez Work Phone: [facility] HospitalStart: 10-16-2021 End: 20-57-4697Jxgsabb encounter procedureDO Janneth Ramirez Work Phone: [facility] Procedures DateProcedureProcedure DetailPerforming ClinicianStart: 09-50-2220KG lumbar spine wo Zaid. Mulugeta Ramirez DO Work Phone: Start: 19-89-2251QBD of headG. Mulugeta Ramirez DO Work Phone: Start: 35-00-0496Vwrge X-ray of right handG. Mulugeta Ramirez DO Work Phone: Start: 23-61-4321Nvozbeaomccv cholecystectomyG. Mulugeta Ramirez DO Work Phone: Start: 61-08-5176Ojijagca tomography of abdomen and pelvis with contrastDO Janneth Ramirez Work Phone: Start: 85-77-7432A-ray of left footDO Janneth Ramirez Work Phone: Start: 28-18-9804Z-ray of left ankleDO Janneth Ramirez Work Phone: AppendectomyJENNIFER GILDA CholecystectomyJENNIFER GILDA Procedure on lower legJENNIFER GILDA Plan of Treatment DateCare ActivityDetailAuthorStart: 69-51-9689EQ lumbar spine wo conMR lumbar spine wo [facility] CenterStart: 93-87-0763JV Lumbar spine WO contrastFostoria City Hospital CenterStart: 27-63-0898XQ Unspecified body [facility]tart: 40-72-7064EOD of headMR head/brain wo/w [facility] Centertart: 74-93-1301Vorwric referral [facility] Work Phone: Start: 04-28-2024 End: 53-66-2093DjhmkcgnhGuernsey Memorial Hospitaltart: 34-12-9794Khttidalyykz cholecystectomyOR Cholecystectomy Laparoscopic (Not Applicable)[facility] Hospitaltart: 16-97-8111GvnfgnebzPeoples Hospital Aldolase measurementPeoples HospitalCefuroxime free [Mass/volume] in Serum or PlasmaPeoples HospitalGlucose measurement estimated from glycated hemoglobinFostoria City Hospital Ctr Work Phone: Hemoglobin A1c/Hemoglobin.total in BloodFostoria City Hospital Ctr Work Phone: Myoglobin [Mass/volume] in Serum or PlasmaPeoples HospitalPatient EducationFostoria City Hospital Ctr Work Phone: Patient referralFostoria City Hospital Ctr Work Phone: [facility] Payers DatePayer CategoryPayerPolicy [id number] 2025Medicare [id number] 2025Medicaid [id number] .1.086554.3.57[id number] .1.011692.3.57[id number] 840.1.930648.3.57[id number] 2.16.840.1.256179.3.57[id number] 2.16.840.1.249414.3.57[id number] 2.840.1.849096.3.579.[id number] 2.0.1.044147.3.579.[id number] 2.840.1.105530.3.579.[id number] 2.840.1.729089.3.579.2.157111-36-2067Cznjhjq79876039 2.0.1.301162.3.57[id number] 2.0.1.494423.3.57[id number] 2.0.1.324035.3.579.2.285271-09-2244Dsqklcs54427589 2.0.1.927652.3.579.2.267206-81-8932Wzvemht2231064 2.840.1.442593.3.579.[id number] 2.840.1.886925.3.579.2.154213-42-3411Cgyjdno9545048 2.840.1.750572.3.579.2.750513-12-0876Lldybws4295614 2.840.1.212282.3.579.2.340736-39-6539Ezmkqsq4357909 2..1.110275.3.579.2.548120-14-2665Sjprotc8693101 2..1.735137.3.579.2.324096-57-7816Liooubl8272665 2..1.338155.3.579.2.561950-04-1763Wtrgsio2198663 2..1.321467.3.579.2.868137-00-8877Igwoeod0789569 2..1.498816.3.579.2.831760-66-2803Orcqgls3966919 2..1.805341.3.579.2.413124-67-6109Uynlufk2590469 2...464[id number] 2..1.527369.3.579.2.649Yadankx55027636 2..1.317612.3.579.2.531 Iihhlvy37426085 2..1.688654.3.579.2.699Fjdlojd71282589 ..1.480883.3.579.2.403Poljgdf05494121 2..1.241405.3.579.2.531 [id number] 2..1.180959.3.579.2.531 Social History DateTypeDetailFacilityStart: 04-25-2021 End: 48-76-7872Cxwrqby smoking status NHISNever smoked tobacco (finding) [facility]tart: 05-85-6465Afw [facility]igned [facility]: 04-28-2024 End: 57-92-9625PcrLkxdpb (finding)Peoples HospitalTobacc smoking statusNeverExec[facility] Sexual OrientationExec[facility] sex Assigned At [facility]edoNEGATED: Highlighted [facility] HospitalNEGATED: Highlighted [facility] Goals DatePatient GoalDesired Activity/State Clinical Notes 06-19-2021 to 01-14-2025 Note Date & ExmlOllrTcznutdd30-27-9146 Hospital Discharge instructions Patient Education 01/14/2025 10:53:20 [...] your health care provider. General instructions Take bdni-gfm-rzryuvm and prescription medicines only as told by [...] provider. Document Revised: 12/12/2020 Document Reviewed: 12/12/2020 [employer] Patient Education 2023 [employer]. Follow Up Care 01/12/2025 15:08:42 With:Jacklyn Rivera PA-C, URL Address: When: Unknown Comments:3 mos w/ PVR [facility] [place] 10-09-2025 NotePatient Education Obstetrics and Gynecology Overactive [...] health care provider. General instructions ??? Take jduk-sgs-hrervxx and prescription medicines only as told by [...] you drink, and whe (more content not included)...[facility]10-02-2025 Evaluation note* Diagnosis Onset Date Resolution [...] palsy chronicOctober 2024 1:23pmUrinary incontinencechronicOctober 2024 1:23pm [facility] Work Phone: 1(205) 416-403106-25-2025 Evaluation note* Diagnosis Onset Date Resolution Status Admit Date Abnormal reflexes chronicJune 2024 3:59pmChronic bilateral low back pain without sciatica chronicJune 2024 3:59pmHistory of developmental delaychronicJune 2024 3:59pmLumbosacral radiculopathychronicJune 2024 3:59pmMuscle weakness chronicJune 2024 3:59pmParesthesiaschronicJune 2024 3:59pmSpastic cerebral palsychronicJune 2024 3:59pmUrinary incontinencechronicJune 2024 3:59pm [facility] Work Phone: 1(164) 446-969403-23-2025 NotePatient Education Obstetrics and Gynecology Overactive Bladder, [...] health care provider. General instructions ??? Take wnhb-avp-okxypjy and prescription medicines only as told by [...] you drink, and whe (more content not included)...[facility]03-14-2022 Note [id number] Children's Medical CenterEvaluation + Plan note No data available for this section [facility] [place] evaluation + Plan note Future Appointments Appointment Date:01/14/2025 10:30:00 AM Scheduled Provider:Jacklyn Rivera PA-C Location:[facility] [place] Appointment Type:URO Acute Visit [facility] [place] evaluation + Plan note Future Appointments Appointment Date:04/22/2025 10:20:00 AM Scheduled Provider:Jacklyn Rivera PA-C Location:[facility] [place] Appointment Type:URO Office Visit [facility] [place] Evaluation noteNo assessment information available [facility] Work Phone: Evaluation note* Diagnosis Onset Date Resolution Status Admit Date 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 radiculopathy acuteOctober 2024 2:42pmChronic bilateral low back pain without sciatica chronicOctober 2024 2:42pm [facility] Work Phone: Hospital Discharge instructions Additional Instructions [...] directed for pain unless a prescription was provided.[facility] Work Phone: Hospital Discharge instructions No data available for this section [facility] progress note No data available for this section [facility] reason for referral (narrative)No reason for referral information availableTr[facility] Work Phone: Summary Purpose Family History No [...] 10:00am symptomatic cholelithiasis April 28, 2024 6:28am BH May 28, 2024 10:36am Chief Complaint Admit [...] G89.29 M54.17 R29.2 October 28, 2024 4:49pm January 06, 2025 10 :46am Radiculopathy, lumbosacral region Octobe r 2024 2:42pm Reason for Visit Admit Date Spondylosis of lumbar region without myelopathy or radiculopathy January 07, 2025 2:42pm Chronic bilateral low back pain without sciatica January 07, 2025 2:42pm Chief Complaint Admit Date Amb Documentation October 27, 2024 1:18 pm M62.81 R20.2 M54.50 G89.29 M54.17 R29.2 October 28, 2024 4:49pm January 06, 2025 10 :46am Radiculopathy, lumbosacral [...] delay January 132024 1:23pm Lumbosacral radiculopathy January 13 1:23pm Muscle weakness January 13, 2025 1: 23pm Paresthesias January 13, 2025 1: 23pm Spastic cerebral palsy January 13, 2025 1:23pm Urinary incontinence January 13, 2025 1 :23pm Additional Source Comments INFORMATION SOURCE (unrecogn ized section and content) DATE CREATED AUTHOR 08/28/2021 [facility] DATE CREATED AUTHOR AUTHOR'S ORGANIZ ATION 09/09/2021 [facility] Occupational Therapy Program Director DATE CREATED AUTHOR AUTHOR'S ORGANIZ ATION 01/17/2025 [facility] DATE CREATED AUTHOR AUTHOR'S ORGANIZ ATION 01/22/2025 [facility] DATE CREATED AUTHOR AUTHOR'S ORGANIZ ATION 02/09/2025 [facility] Care Teams (unrecognized sec tion and content) Team Status: Active Member Role Status Dates Janneth Ramirez DO Primary Care Provider Active Team Status: Active Member Role Status Dates Janneth Ramirez DO Primary Care Provider Active Start: October 27, 2024 Earlene Villa ProviderActiveStart: October 27, 2024 Team Status: Inactive Member Role Status Dates Janneth Ramirez DO Primary Care Provider Active Start: October 28, 2024 End: October 28, 2024MAITE Sanchez-CAttending ProviderActiveStart: October 28, 2024 End: October 28, 2024 Team Status: Active Member Role Status Dates Janneth Ramirez DO Primary Care Provider Active Start: January 06, 2025 Fela Harvey ProviderActiveStart: January 06, 2025 Team Status: Inactive Member Role Status Dates Janneth Ramirez DO Primary Care Provider Active Start: January 07, 2025 End: January 07, 2025Fela Lopez ProviderActiveStart: January 07, 2025 End: January 07, 2025 Team Status: Inactive Member Role Status Dates Janneth Ramirez DO Primary Care Provider Active Start: August 16, 2024 End: August 16, 2024TimDane Santiago ProviderActiveStart: August 16, 2024 End: August 16, 2024 Team Status: Active Member Role Status Dates Janneth Ramirez DO Primary Care Provider Active Start: September 30, 2024 Billy Eaton , MDAttending ProviderActiveStart: September 30, 2024 Team Status: Inactive Member Role Status Dates Janneth EvangelistaDO halie Primary Care Provider Active Start: September 30, 2024 End: September 30, 2024Elise Delatorre APRN-FNP-CAttending ProviderActiveStart: September 30, 2024 End: September 30, 2024 Team Status: Active Member Role Status Dates Janneth EvangelistaDO halie Primary Care Provider Active Start: August 05, 2024 Billy Eaton , CELIAttending ProviderActiveStart: August 05, 2024 Team Status: Inactive Member Role Status Dates Janneth EvangelistaDO halie Primary Care Provider Active Start: March 19, 2024 End: March 19, 2024Fredric Itzgriselda , DOAttending ProviderActiveStart: March 19, 2024 End: March 19, 2024 Team Status: Active Member Role Status Dates Janneth WileyDO nahomy Primary Care Provider Active Start: April 16, 2024 Billy Eaton , CELIAttending ProviderActiveStart: April 16, 2024 Team Status: Inactive Member Role Status Dates Janneth EvangelistaDO halie Primary Care Provider Active Start: April 28, 2024 End: April 28, 2024Fredric Itzkobishnu , DOAttending ProviderActiveStart: April 28, 2024 End: April 28, 2024 Team Status: Active Member Role Status Dates LiviaJillian Mulugeta EvangelistaDO halie Primary Care Provider Active Start: August 07, 2023 Billy Eaton , MDAttending ProviderActiveStart: August 07, 2023 Team Status: Inactive Member Role Status Dates LiviaJillian Mulugeta EvangelistaDO halie Primary Care Provider Active Start: August 31, 2023 End: August 31, 2023Dane Bender ProviderActiveStart: August 31, 2023 End: August 31, 2023 Team Status: Inactive Member Role Status Dates Janneth Ramirez DO Primary Care Provider Active Fela Redd ProviderActive Team Status: Inactive Member Role Status Dates Janneth Ramirez DO Primary Care Provider Active Violeta Painting ProviderActive Team Status: Inactive Member Role Status Dates Janneth Ramirez DO Primary Care Provider Active Carolyn Dale DOAttending ProviderActive Team Status: Active Member Role Status Dates Janneth Ramirez DO Primary Care Provider Active Start: January 01, 2024 Fela Harvey ProviderActiveStart: January 01, 2024 Team Status: Inactive Member Role Status Dates Janneth Ramirez DO Primary Care Provider Active Start: January 19, 2024 End: January 19, 2024Sarah Anderson ProviderActiveStart: January 19, 2024 End: January 19, 2024 Team Status: Inactive Member Role Status Dates Janneth Ramirez Primary Care Provider Active Start: April 03, 2024 End: April 03, 2024Frgermania Juárez DOAttending ProviderActiveStart: April 03, 2024 End: April 03, 2024 Team Status: Active Member Role Status Dates Janneth Ramirez Primary Care Provider Active Start: May 28, 2024 Charito Harveyending ProviderActiveStart: May 28, 2024 Team Status: Inactive Member Role Status Dates Janneth Ramirez Primary Care Provider Active Start: January 13, 2025 End: January 13, 2025MAITE Sanchez-CAttending ProviderActiveStart: January 13, 2025 End: January 13, [...] BE BASED ON THE PRIMARY CLINICAL RECORDS. [employer] [facility]. provides no warranty or guarantee of the accuracy or completeness of information in this document.
--- NOTE | 2025-03-11 13:19 | PM.CN ---
Consult Note: HPI Data of Consult Patient: known to practice within the last 3 years Consult date: 03/11/25 Requesting Physician: Lashawn Coe NP Primary Care Provider: Livia TSE Consult Narrative Reason for consult: low back and BLE pain Narrative: Saida Dawn a pleasant 34 year old female presents for evaluation and management of chronic BLE pain secondary to lumbosacral radiculopathy. Pt has a longstanding hx of low back and BLE pain over the last 5+ years, recently underwent emg consistent with left S1 radiculopathy and mri of lumbar spine consistent with multilevel degenerative changes and stenosis at L5-S1. Pt has failed > 6 weeks of PT, heat, ice, tylenol, ibuprofen, baclofen. denies fall/injury. 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 Pt noting significant relief status post bilateral L5-S1 TFESI, >80% improvement overall. noting pain 0/10 increasing to 3/10 at times. cc:: CC: Lashawn Coe NP Review of Systems ROS Musculoskeletal Denies: back pain or extremity pain PFSH PFSH Medical History (Updated 01/27/25 @ 15:40 by Roberta Leach) Cerebral palsy ?G80.9 - Cerebral palsy, unspecified (ICD-10) Asthma ?J45.909 - Unspecified asthma, uncomplicated (ICD-10) Surgical History Hx of cholecystectomy ?Z90.49 - Acquired absence of other specified parts of digestive tract (ICD-10) S/P appendectomy ?Z90.49 - Acquired absence of other specified parts of digestive tract (ICD-10) Meds Home Medications and Allergies Home Medications ?Medication ?Instructions ?Recorded ?Confirmed ?Type baclofen 5 mg tablet 5 mg PO TID 01/27/25 03/01/25 History bupropion HCl 300 mg 24 hr tablet, 300 mg PO DAILY 01/27/25 03/01/25 History extended release famotidine 40 mg tablet 40 mg PO DAILY 01/27/25 03/01/25 History gabapentin 100 mg capsule 200 mg PO BID 01/27/25 03/01/25 History hydroxyzine HCl 25 mg tablet 25 mg PO BID 01/27/25 03/01/25 History lamotrigine 150 mg tablet 150 mg PO DAILY 01/27/25 03/01/25 History norethindrone 1 mg-ethinyl 1 tab PO DAILY 01/27/25 03/01/25 History estradiol 10 mcg (24)-iron 10 mcg(2) tablet (Lo Loestrin Fe) oxybutynin chloride 10 mg 10 mg PO DAILY 01/27/25 03/01/25 History tablet,extended release 24 hr prazosin 2 mg capsule 4 mg PO DAILY 01/27/25 03/01/25 History trazodone 150 mg tablet 100 mg PO DAILY 01/27/25 03/01/25 History ziprasidone HCl 60 mg capsule 60 mg PO BID 01/27/25 03/01/25 History Allergies Allergy/AdvReac Type Severity Reaction Status Date / Time latex Allergy Unknown Unknown Verified 01/27/25 15:32 sulfamethoxazole (From Allergy Unknown Unknown Verified 01/27/25 15:32 Bactrim) trimethoprim (From Bactrim) Allergy Unknown Unknown Verified 01/27/25 15:32 Exam Constitutional Documenting provider has reviewed patient's vital signs: yes Common normals: no apparent distress, oriented x3 and alert General appearance: cooperative [facility] Common normals: normocephalic, hearing grossly normal bilaterally and moist oral mucous membranes Head and scalp: normocephalic Eye Common normals: PERRL Pupil: PERRL Neck & C-Spine Common normals: full ROM General: normal visual inspection Chest Common normals: inspection of chest normal Respiratory Common normals: normal respiratory effort, no retractions and no use of accessory muscles Back & Pelvis Lumbar spine/lower back: ROM limited, pain with ROM and straight leg raise negative bilaterally Other: sensation intact BLE strength 5/5 in BLE Neuro Common normals: oriented x3 Sensorium/orientation: alert Psych Common normals: mental status grossly normal, thought process normal, cooperative, affect normal, speech normal and activity/motor behavior normal Speech: normal speech Thought process: normal thought process Results Additional Findings Additional findings: If on a controlled substance or opioids, I have checked an [place] report on this patient and there are no aberrancies noted in the prescribing history.??If on a controlled substance or opioid a drug screen was completed and reviewed within the last year, and if there has not been a drug screen completed we ordered one today to monitor higher risk, state monitored pain medication use. As part of providing excellent, safe, comprehensive care, the following was completed at our patient's visit: 1. A medication reconciliation and review to ensure accurate knowledge of current/active medications, including asking our patients to inform us about any [id number] medications or herbal remedies/nutritional supplements/alternative remedies. 2. A review to specifically ensure our patients have had annual screening for screening for depression, screening for tobacco use, and screening for unhealthy alcohol use. For concerning screenings had a discussion with the patient, provided patient education, and recommended follow-up with primary care provider when appropriate. If patient noted with a risk of falling, they received education on strength, gait, and balance training to prevent future risk of falling. Portions of this note may have been carried over from the previous visit and updated as appropriate. Please note this office utilizes paper charting in addition to the electronic medical record. A list of current medications, vitals, and PMH is available there as the clinical staff outside of myself do not have access to [employer] charting during the clinic day operations. As part of providing quality comprehensive care the current medications, vitals, and PMH were reviewed in the paper chart. Assessment and Plan Assessment and Plan (1) Lumbosacral radiculopathy: Plan The patient has had over 3 months of moderate to severe low back and BLE pain with functional impairment and inadequate response to conservative care including NSAIDS (unless there are contraindication such as concurrent blood thinners), multiple oral or topical pain medications, and home exercise program/physical therapy.? Patient has completed >6 weeks of guided home exercise program and/or formal physical therapy program without relief of their symptoms.? The Oswestry Disability Index was completed, and the patient scored a 33%.? significant relief post bilateral L5-S1 TFESI, encouraged pt participate in stretching to improve myofacial tightness and pain. medications reviewed, no changes. f/u 3 months, sooner if needed
== END 2025-03-11 13:03 | disposition home or self-care (01) ==
LOC: PM 13:02
PROVIDERS: PCP Family Medicine; Visit Provider Nurse Practitioner
DX: M54.17 Radiculopathy, lumbosacral region (principal)
CPT/HCPCS: G0463